=== PATIENT | female | born 1945 | race Caucasian/White ===

== ENCOUNTER 2021-11-12 10:01 | Outpatient (REF) | payer MEDICARE, SELFPAY ==
[2021-11-12 11:29] LABS: MANUAL DIFF FLAG NO
[2021-11-12 11:30] LABS: Appearance Urine Clear; Color Urine Yellow; Glucose Urine UA Negative (Negative); Leukocyte Esterase Urine Negative (Negative); Nitrite Urine Negative (Negative); Specific Gravity - Urine 1.015 (1.005-1.025); Urine Blood Trace (Negative); Urine Ketones Negative (Negative); Urine Protein Negative (Neg-Trace)
[2021-11-12 11:45] LABS: Basophils Absolute Auto 0.1 X10*3/uL (0.0-0.2); Basophils Percent Auto 1.2 % (0-2); Eosinophils Absolute Auto 0.1 X10*3/uL (0.0-0.4); Hematocrit 44.4 % (37.0-47.0); Hemoglobin 14.8 g/dl (12.0-16.0); Imm Gran Abs Auto 0.02 X10*3/uL (0.00-0.03); Imm Gran Pct Auto 0.4 % (0.0-0.4); Lymphocytes Absolute Auto 1.4 X10*3/uL (1.2-4.9); Lymphocytes Percent Auto 27.5 % (20-40); Mean Corpuscular HGB Conc 33.3 g/dl (31.0-35.0); Mean Corpuscular Hemoglobin 30.5 pg (27.0-33.0); Mean Corpuscular Volume 91.4 fL (80.0-98.0); Mean Platelet Volume 10.8 fL (9.4-12.3); Monocytes Absolute Auto 0.6 X10*3/uL (0.1-1.2); Neutrophils Percent Auto 57.9 % (45-73); Platelet Count 264 X10*3/uL (160-400); Red Blood Count 4.86 X10*6/uL (4.20-5.50); Red Cell Distribution Width 12.7 % (11.0-16.0); White Blood Count 5.1 X10*3/uL (4.8-10.8)
[2021-11-12 12:33] LABS: Alanine Aminotransferase 20 U/L (0-31); Albumin Level 4.1 g/dL (3.5-5.0); Alkaline Phosphatase 110 U/L (39-117); Anion Gap 15 (12-20); Aspartate Amino Transferase 19 U/L (5-31); Bilirubin Total 0.9 mg/dL (0.0-1.0); Blood Urea Nitrogen 13 mg/dL (9-16); Calcium 9.4 mg/dL (8.4-10.2); Carbon Dioxide 25 mmol/L (22-29); Chloride 105 mmol/L (96-108); Cholesterol 327 mg/dL; Estimated Glomerular Filt Rate > 60; Glucose Fasting 98 mg/dL (60-99); HDL Cholesterol 59 mg/dL; LDL Cholesterol Calculated 250 mg/dl; Potassium 4.3 mmol/L (3.3-5.1); Sodium 141 mmol/L (135-145); Total Protein 6.7 g/dL (6.5-8.0); Triglycerides 92 mg/dL
[2021-11-12 12:43] LABS: TSH reflex Free T4 1.38 uIU/mL (0.32-4.0)
== END 2021-11-12 10:02 | disposition home or self-care (01) ==
LOC: HO.HMGCLDS 10:01
PROVIDERS: PCP Nurse Practitioner Family; Visit Provider Nurse Practitioner Family
DX: I10 Essential (primary) hypertension (principal)
CPT/HCPCS: 36415; 80053; 80061; 81003; 84443; 85025

== ENCOUNTER 2021-11-19 09:24 | Outpatient (REF) | payer MEDICARE, SELFPAY ==
--- NOTE | ~2021-11-19 | MM_ITS ---
EXAMINATION: BONE DENSITOMETRY CLINICAL INDICATION: Age-related osteoporosis without current pathological fracture. COMPARISON: None (current study represents initial baseline exam). TECHNIQUE: Using a SeeMe DXA System (software version: 13.1) manufactured by [employer], dual-energy x-ray absorptiometry was performed of the lumbar spine and left hip. The images are of good technical quality. Summary results are attached. FINDINGS: AP SPINE L1-L4: BMD 0.973 g/cm2, Z-score -0.1, T-score -1.7, osteopenia. LEFT FEMUR, NECK: BMD 0.861 g/cm2, Z-score 0.6, T-score -1.3, osteopenia. LEFT FEMUR, TOTAL: BMD 0.870 g/cm2, Z-score 0.6, T-score -1.1, osteopenia. IDENTIFIED RISK FACTORS: Osteoporosis, height loss, menopause, hysterectomy. HISTORY OF FRACTURE: None listed. MEDICATIONS: Bisphosphonates. MM/XR DEXA axial skeleton IMPRESSION: 1. DIAGNOSIS: Osteopenia based on the lowest T-score value of -1.7 in the lumbar spine applying World Health Organization criteria. 2. 10-YEAR FRACTURE RISK PREDICTION, FRAX: Major osteoporotic fracture (clinical spine, forearm, hip or shoulder) 10.9%. Hip fracture 2.0%. 3. Treatment Recommendations: NOF guidelines recommend consideration for treatment in postmenopausal women and men age 50 and older presenting with the following: -A hip or vertebral (clinical or morphometric) fracture. -T-score less than or equal to -2.5 at the femoral neck or spine after appropriate evaluation to exclude secondary causes. -Low bone mass at the hip or spine and a 10-year fracture probability by FRAX of greater than or equal to 3% for hip fracture or greater than or equal to 20% for major osteoporotic fracture based on the [place] adapted WHO algorithm. 4. Other Recommendations: All treatment decisions require clinical judgment and consideration of individual patient factors, including patient preferences, comorbidities, previous drug use, risk factors not captured in the FRAX model (e.g. frailty, falls, vitamin D deficiency, increased bone turnover, interval significant decline in bone density) and possible under or overestimation of fracture risk by FRAX. Additional medical evaluation for secondary cause of low bone mineral density may be appropriate. FUTURE SCAN RECOMMENDATION: People with diagnosed cases of osteoporosis or at high risk for fracture should have regular bone mineral density tests. For patients eligible for Medicare, routine testing is allowed once every 2 years. The testing frequency can be increased to one year for patients who have rapidly progressing disease, those who are receiving or discontinuing medical therapy to restore bone mass, or have additional risk factors.
== END 2021-11-19 09:25 | disposition home or self-care (01) ==
LOC: HO.MAMMO 09:24
PROVIDERS: PCP Nurse Practitioner Family; Visit Provider Nurse Practitioner Family
DX: Z13.820 Encounter for screening for osteoporosis (principal); M81.0 Age-related osteoporosis without current pathological fracture; Z78.0 Asymptomatic menopausal state
CPT/HCPCS: 77080

== ENCOUNTER 2021-11-26 12:39 | Outpatient (REF) | payer MEDICARE, SELFPAY ==
[2021-11-26 13:49] LABS: Urine Cytology See Pathology rpt
[2021-11-26 14:17] LABS: Appearance Urine Clear; Color Urine Yellow; Glucose Urine UA Negative (Negative); Leukocyte Esterase Urine Trace (Negative); Nitrite Urine Negative (Negative); Urine Blood Negative (Negative); Urine Ketones Negative (Negative); Urine Protein Negative (Neg-Trace)
[2021-11-26 14:22] LABS: Bacteria Urine None Seen (None Seen); Hyaline Casts Urine 0-2 /LPF (0-2); RBC Urine 0-2 /HPF (0-2); Squamous Epithelial Cell Urine 0-2 /HPF (0-2); WBC Urine 0-5 /HPF (0-5)
== END 2021-11-26 12:40 | disposition home or self-care (01) ==
LOC: HO.HMGCLDS 12:39
PROVIDERS: PCP Nurse Practitioner Family; Visit Provider Nurse Practitioner Family
DX: R31.29 Other microscopic hematuria (principal)
CPT/HCPCS: 81001; 87086; 88112

== ENCOUNTER → 2022-04-14 11:16 | Outpatient (REF) | payer MEDICARE, SELFPAY ==
--- NOTE | 2022-04-14 11:20 | HM_ITS ---
* Total monitoring time 3 days. * Underlying rhythm is sinus. Average ventricular rate 75/Min. Range 46 to 121/Min. * Occasional PVCs; burden of 0.6%. * Rare PACs with minimal burden. * No sustained arrhythmias. * No significant pauses or AV blocks. * No patient diary. MTDD
== END ==
LOC: HO.CARD 11:16
PROVIDERS: PCP Nurse Practitioner Family; Visit Provider Nurse Practitioner Family
DX: R00.2 Palpitations (principal)
CPT/HCPCS: 93242

== ENCOUNTER 2022-07-06 09:30 | Outpatient (REF) | payer MEDICARE, SELFPAY ==
[2022-07-06 12:02] LABS: Alanine Aminotransferase 36 U/L (0-31); Albumin Level 4.1 g/dL (3.5-5.0); Alkaline Phosphatase 104 U/L (39-117); Anion Gap 11 (12-20); Aspartate Amino Transferase 25 U/L (5-31); Bilirubin Total 1.1 mg/dL (0.0-1.0); Blood Urea Nitrogen 16 mg/dL (9-16); Calcium 9.6 mg/dL (8.4-10.2); Carbon Dioxide 27 mmol/L (22-29); Chloride 108 mmol/L (96-108); Cholesterol 187 mg/dL; Estimated Glomerular Filt Rate > 60; Glucose Fasting 95 mg/dL (60-99); HDL Cholesterol 59 mg/dL; LDL Cholesterol Calculated 108 mg/dl; Potassium 4.3 mmol/L (3.3-5.1); Sodium 142 mmol/L (135-145); Total Protein 6.2 g/dL (6.5-8.0); Triglycerides 100 mg/dL
== END 2022-07-06 09:31 | disposition home or self-care (01) ==
LOC: HO.HMGCLDS 09:30
PROVIDERS: PCP Nurse Practitioner Family; Visit Provider Nurse Practitioner Family
DX: E78.5 Hyperlipidemia, unspecified (principal)
CPT/HCPCS: 36415; 80053; 80061

== ENCOUNTER 2022-07-13 13:42 | Outpatient (REF) | payer MEDICARE, SELFPAY ==
[2022-07-13 17:15] LABS: Alanine Aminotransferase 28 U/L (0-31); Albumin Level 4.3 g/dL (3.5-5.0); Alkaline Phosphatase 105 U/L (39-117); Aspartate Amino Transferase 22 U/L (5-31); Bilirubin Direct 0.3 mg/dL (0.0-0.5); Bilirubin Total 1.1 mg/dL (0.0-1.0); Total Protein 6.6 g/dL (6.5-8.0)
[2022-07-13 17:31] LABS: TSH reflex Free T4 0.91 uIU/mL (0.32-4.0)
[2022-07-15 08:38] LABS: HBS Num1 0.12 mIU/mL (0-7.99); HBc Num1 0.08 S/CO (0.00-0.79); HBsAGNum1 0.45 S/CO (0.00-0.99); Hepatitis A Antibody IgM 0.14 Index (0-0.79); Hepatitis B Core Antibody Nonreactive (Nonreactive); Hepatitis B Surface Antigen Negative (Negative); ~HepC Num1 0.12 S/CO (0.00-0.79); ~Hepatitis A Antibody IgM Nonreactive (Nonreactive); ~Hepatitis B Surface Antibody NONREACTIVE (Nonreactive); ~Hepatitis C Antibody Nonreactive (Nonreactive)
== END 2022-07-13 13:43 | disposition home or self-care (01) ==
LOC: HO.HMGCLDS 13:42
PROVIDERS: PCP Nurse Practitioner Family; Visit Provider Nurse Practitioner Family
DX: R74.8 Abnormal levels of other serum enzymes (principal); E03.9 Hypothyroidism, unspecified
CPT/HCPCS: 36415; 80076; 84443; 86704; 86706; 86709; 86803; 87340

== ENCOUNTER 2022-08-25 13:09 | Outpatient (REF) | payer MEDICARE, SELFPAY ==
--- NOTE | ~2022-08-25 | MM_ITS ---
EXAMINATION: MM SCREENING DIGITAL BREAST TOMOSYNTHESIS, BILATERAL CLINICAL INFORMATION: Screening. Asymptomatic. Prior out of state mammography from [place] currently unavailable. Age 76. No known family history breast cancer. The lifetime risk of breast cancer based on the Tyrer-Cuzick Model is 3%. COMPARISON: None. TECHNIQUE: Digital breast tomosynthesis is performed in both the craniocaudal and mediolateral oblique views along with computer-aided detection (CAD). Synthesized 2D images are generated from the tomosynthesis. Additional right MLO view is provided. FINDINGS: The breasts are heterogeneously dense, which may obscure small masses (ACR BI-RADS breast composition Category c). There are no significant masses, abnormal calcifications, or other abnormalities. There is incidental small intramammary node posterior lower inner right breast. Scattered bilateral punctate round, vascular, and a few coarse benign calcifications are present. The axilla and skin contours are unremarkable. Radiology department staff will attempt to retrieve prior [id number] mammography to allow for comparison in an addendum report. MM/MM tomosynthesis screening BI IMPRESSION: No mammographic evidence of malignancy. ASSESSMENT: BI-RADS 2: Benign RECOMMENDATION: -Routine annual mammography screening. -Radiology department staff will attempt to retrieve prior [id number] mammography to allow for comparison in an addendum report. This patient's information was entered into a reminder system with a target due date for their next mammogram.
== END 2022-08-25 13:10 | disposition home or self-care (01) ==
LOC: HO.MAMMO 13:09
PROVIDERS: PCP Nurse Practitioner Family; Visit Provider Nurse Practitioner Family
DX: Z12.31 Encounter for screening mammogram for malignant neoplasm of breast (principal)
CPT/HCPCS: 77063; 77067

== ENCOUNTER 2023-01-09 09:26 | Outpatient (AMB) | payer MEDICARE, SELFPAY ==
--- NOTE | 2023-01-09 09:31 | A.OFFPC_ITS ---
Vital Signs 01/09/23 09:33 Height 5 ft 4 in Weight 171 lb BMI 29.3 BP 120/80 Blood Pressure Location Rt brachial Position Sitting Pulse 88 Pulse Source Pulse Oximeter Pulse Oximetry (%) 98 Oxygen Delivery Method Room Air Intake Visit Reasons: 6m follow up Allergies No Known Allergies Allergy (Verified 01/09/23 09:33) Tobacco use date assessed: 07/13/22 Fall risk assessment: No Falls in past year Last assessed Fall Risk: 01/09/23 Dental Screening Dental Screen Date: 01/09/23 Did you have a dental visit in the last 12 months?: Yes Did you have a dental problem in the last 6 months where you did not have access to dental care?: No Was dental information given to patient?: Patient has dentist HPI 6m follow up HPI Details HTN: Blood pressure is stable, managed with amlodipine-benazepril 5- 40mg and metoprolol 12.5mg. Dyslipidemia: On rosuvastatin 10mg. Will order labs. Denies chest pain, shortness of breath, headache, dizziness, and blurred vision. Hx of hypothyroid, currently taking levothyroxine 75mcg. Will order labs. [facility], [facility] Medical History Osteoarthritis Social History Housing: Apartment Patient Tobacco Use Status: Never used Tobacco e-Cigarette/Vaping Use: Never Used Second Hand Smoke Exposure: No service: No Current occupational status: retired Cognitive needs: No Hearing needs: No Vision needs: No Questionnaire Thrive Questionnaire Date Thrive assessed: 04/05/22 AUDIT C Alcohol Use Questionnaire (AUDIT-C) 1. How often do you have a drink containing alcohol?: Never 3. How often do you have six or more drinks on one occasion?: Never Total Score: 0 Score Reviewed/Action Taken: No STEPHANY-7 AMB Questionnaire STEPHANY-7 Date STEPHANY - 7 assessed: 11/11/21 Source: Developed by Drs. Zechariah Lazo, Ivonne Mayer, Bubba Heredia and colleagues, with an educational jennifer from [employer]. Review of Systems Const Reports as per HPI Physical exam (Primary Care) Vital Signs: Last Vital Signs Pulse 88 01/09/23 09:33 BP 120/80 01/09/23 09:33 Pulse Ox 98 01/09/23 09:33 Oxygen Delivery Method Room Air 01/09/23 09:33 BMI result Body Mass Index 29.3 Tobacco/Smoking Status: Tobacco use Status Tobacco use date assessed 07/13/22 01/09/23 09:36 Patient Tobacco Use Status Never used Tobacco 01/09/23 09:36 e-Cigarette/Vaping Use Never Used 01/09/23 09:36 Thrive Assessment: Date of Thrive Assessment Date Thrive assessed 04/05/22 01/09/23 09:36 Const General: cooperative Orientation/consciousness: patient oriented x3 Resp Effort & Inspection: normal respiratory effort Auscultation: clear to auscultation bilaterally Cardio Rate: regular rate Rhythm: regular rhythm Heart sounds: S1 normal heart sound present and S2 normal heart sound present Neuro General: patient oriented x3 Extrem Right lower extremity: no edema Left lower extremity: no edema Psych Appearance: grossly normal Mental Status: mental status grossly normal Speech and movement: Normal speech and movement present Affect: normal affect Attitude: cooperative Thought process: Normal thought process present Thought content: Normal thought content present Insight: Good insight present (Psych) Judgement: Good judgement present (Psych) Assessment and Plan Assessment & Plan (1) Hypothyroid: Code(s): E03.9 - Hypothyroidism, unspecified Plan: Labs ordered (2) HTN (hypertension): Code(s): I10 - Essential (primary) hypertension Plan: Labs ordered (3) Dyslipidemia: Code(s): E78.5 - Hyperlipidemia, unspecified Plan: Labs ordered Plan The patient agreed to the use of a medical doctor nuclear medicine for this encounter. Scribed for RACHEL Barboza by Kari Hicks medical doctor nuclear medicine, on 01/09/2023 at 09:45 EST Orders: Orders Comprehensive [place]. Panel Fast Today E03.9 - Hypothyroidism, unspecified, E78.5 - Hyperlipidemia, unspecified, I10 - Essential (primary) hypertension Lipid Panel Today E03.9 - Hypothyroidism, unspecified, E78.5 - Hyperlipidemia, unspecified, I10 - Essential (primary) hypertension Complete Blood Count Auto Diff Today E03.9 - Hypothyroidism, unspecified, E78.5 - Hyperlipidemia, unspecified, I10 - Essential (primary) hypertension TSH reflex Free T4 Today E03.9 - Hypothyroidism, unspecified, E78.5 - Hyperlipidemia, unspecified, I10 - Essential (primary) hypertension UA CC w/rflx Micro + Cult Today E03.9 - Hypothyroidism, unspecified, E78.5 - Hyperlipidemia, unspecified, I10 - Essential (primary) hypertension Coding Level of Care Code Est Pt Level 3 (14536) Diagnoses Hypothyroid E03.9 HTN (hypertension) I10 Dyslipidemia E78.5
[2023-01-09 09:33] VITALS: BP 120/80; PULSE 88; O2SAT 98; BMI 29.3
== END 2023-01-09 09:58 | disposition home or self-care (01) ==
PROVIDERS: Visit Provider Nurse Practitioner Family
DX: E03.9 Hypothyroidism, unspecified (principal); I10 Essential (primary) hypertension; E78.5 Hyperlipidemia, unspecified
CPT/HCPCS: 99213

== ENCOUNTER 2023-01-09 09:59 | Outpatient (REF) | payer MEDICARE, SELFPAY ==
[2023-01-09 13:41] LABS: MANUAL DIFF FLAG NO
[2023-01-09 14:13] LABS: Appearance Urine Turbid; Color Urine Yellow; Glucose Urine UA Negative (Negative); Leukocyte Esterase Urine Trace (Negative); Nitrite Urine Negative (Negative); PH 5.5 (5.0-9.0); UMIC TRIGGER UACC YES; Urine Blood Negative (Negative); Urine Ketones Negative (Negative); Urine Protein Negative (Neg-Trace)
[2023-01-09 14:19] LABS: Alanine Aminotransferase 34 U/L (0-31); Albumin Level 4.2 g/dL (3.5-5.0); Alkaline Phosphatase 89 U/L (39-117); Anion Gap 11 (12-20); Aspartate Amino Transferase 27 U/L (5-31); Bilirubin Total 0.8 mg/dL (0.0-1.0); Blood Urea Nitrogen 15 mg/dL (9-16); Carbon Dioxide 26 mmol/L (22-29); Chloride 109 mmol/L (96-108); Cholesterol 181 mg/dL (<200); Estimated Glomerular Filt Rate > 60; Glucose Fasting 98 mg/dL (60-99); HDL Cholesterol 59 mg/dL (>40); LDL Cholesterol Calculated 94 mg/dL (<100); Potassium 4.3 mmol/L (3.3-5.1); Sodium 142 mmol/L (135-145); Total Protein 6.8 g/dL (6.5-8.0); Triglycerides 141 mg/dL (<150)
[2023-01-09 14:21] LABS: Basophils Absolute Auto 0.1 X10*3/uL (0.0-0.2); Basophils Percent Auto 0.9 % (0-2); Eosinophils Absolute Auto 0.1 X10*3/uL (0.0-0.4); Eosinophils Percent Auto 1.7 % (0-4); Hematocrit 44.3 % (37.0-47.0); Hemoglobin 14.5 g/dl (12.0-16.0); Imm Gran Abs Auto 0.02 X10*3/uL (0.00-0.03); Imm Gran Pct Auto 0.3 % (0.0-0.4); Lymphocytes Absolute Auto 1.7 X10*3/uL (1.2-4.9); Lymphocytes Percent Auto 23.8 % (20-40); Mean Corpuscular HGB Conc 32.7 g/dl (31.0-35.0); Mean Corpuscular Hemoglobin 30.3 pg (27.0-33.0); Mean Corpuscular Volume 92.7 fL (80.0-98.0); Mean Platelet Volume 11.1 fL (9.4-12.3); Monocytes Absolute Auto 0.7 X10*3/uL (0.1-1.2); Monocytes Percent Auto 10.2 % (2-11); Neutrophils Absolute Auto 4.4 x10*3/uL (2.0-8.3); Neutrophils Percent Auto 63.1 % (45-73); Platelet Count 239 X10*3/uL (160-400); Red Blood Count 4.78 X10*6/uL (4.20-5.50); Red Cell Distribution Width 12.7 % (11.0-16.0); White Blood Count 6.9 X10*3/uL (4.8-10.8)
[2023-01-09 14:22] LABS: TSH reflex Free T4 1.02 uIU/mL (0.32-4.0)
[2023-01-09 14:59] LABS: Bacteria Urine None Seen (None Seen); Hyaline Casts Urine 0-2 /LPF (0-2); RBC Urine 0-2 /HPF (0-2); Squamous Epithelial Cell Urine 0-2 /HPF (0-2); WBC Urine 0-5 /HPF (0-5)
== END 2023-01-09 10:00 | disposition home or self-care (01) ==
LOC: HO.HMGCLDS 09:59
PROVIDERS: PCP Nurse Practitioner Family; Visit Provider Nurse Practitioner Family
DX: E03.9 Hypothyroidism, unspecified (principal); E78.5 Hyperlipidemia, unspecified; I10 Essential (primary) hypertension
CPT/HCPCS: 36415; 80053; 80061; 81001; 81003; 84443; 85025

== ENCOUNTER 2023-07-11 09:18 | Outpatient (AMB) | payer MEDICARE, SELFPAY ==
--- NOTE | 2023-07-11 09:26 | MHC.PC.OV ---
Vital Signs 07/11/23 09:28 Height 5 ft 4 in Weight 169 lb BMI 29.0 BP 138/80 Blood Pressure Location Rt brachial Position Sitting Pulse 64 Pulse Source Pulse Oximeter Pulse Oximetry (%) 98 Oxygen Delivery Method Room Air Intake Visit Reasons: physical Intake Note: pt is here for physical exam, reports no concerns Assemblyman Or Woman Required: No Accompanied by: Self / Same As Patient Allergies No Known Allergies Allergy (Verified 07/11/23 09:40) Medication List - Last Reconciled 07/11/23 by RACHEL Her amlodipine-benazepril 5-40 mg 1 cap PO DAILY 90 days ascorbate calcium (vitamin C) 500 mg PO QDAY cholecalciferol (vitamin D3) 25 mcg PO DAILY famotidine 40 mg PO DAILY levothyroxine 75 mcg PO DAILY 90 days metoprolol succinate ER 12.5 mg (1/2 x 25 mg) PO DAILY rosuvastatin 10 mg PO DAILY ngymxjgt-mekh-dsrej-oreg-capry 100 mg-150 mg- 50 mg-150 mg caps PO Tobacco use date assessed: 07/11/23 Fall risk assessment: No Falls in past year Last assessed Fall Risk: 07/11/23 Dental Screening Dental Screen Date: 07/11/23 Did you have a dental visit in the last 12 months?: Yes Did you have a dental problem in the last 6 months where you did not have access to dental care?: No Was dental information given to patient?: Patient has dentist HPI physical HPI Details Pt is here for a PE. Will order labs. Cologuard is up to date. Due for bone density in November, will place order. [facility] Medical History Osteoarthritis Surgical History S/P tonsillectomy History of partial hysterectomy S/P knee surgery Social History Housing: Apartment Patient Tobacco Use Status: Never used Tobacco e-Cigarette/Vaping Use: Never Used Second Hand Smoke Exposure: No service: No Current occupational status: retired Cognitive needs: No Hearing needs: No Vision needs: No Questionnaire PHQ-9 Over the last 2 weeks, how often have you been bothered by any of the following problems? 1. Little interest or pleasure in doing things: not at all 2. Feeling down, depressed, or hopeless: not at all 3. Trouble falling or staying asleep, or sleeping too much: not at all 4. Feeling tired or having little energy: not at all 5. Poor appetite or overeating: not at all 6. Feeling bad about yourself - or that you are a failure or have let yourself or your family down: not at all 7. Trouble concentrating on things, such as reading the newspaper or watching television: not at all 8. Moving or speaking so slowly that other people could have noticed. Or the opposite - being so fidgety or restless that you have been moving around a lot more than usual: not at all 9. Thoughts that you would be better off or of hurting yourself in some way: not at all Total score: 0 Depression Screening Interpretation: Negative Depression Screening Done: Yes 97144 - PHQ-9 Billing: Yes Source: Developed by Drs. Zechariah Lazo, Ivonne Mayer, Bubba Heredia and colleagues, with an educational jennifer from [employer]. Thrive Questionnaire Date Thrive assessed: 07/11/23 I am a: Patient What is your living situation today?: I have a steady place to live Within the past 12 months, did the food you bought not last and you didn't have the money to get more?: Never true Within the past 12 months, did you worry whether your food would run out before you got money to buy more?: Never true Do you have trouble paying for medicines?: No Do you have trouble getting transportation to medical appointments?: No Do you have trouble paying your heating and electricity bill?: No Do you have trouble taking care of your child, family member or friend?: No Do you have trouble with day-to-day activities such as bathing, preparing meals, shopping, managing finances, etc.?: No Are you currently unemployed and looking for a job?: No Are you interested in more education?: No Please select the resources that you would like help with: None Currently or been in a relationship where the following occur: no concerns reported THRIVE Score: 0 AUDIT C Alcohol Use Questionnaire (AUDIT-C) 1. How often do you have a drink containing alcohol?: Never 3. How often do you have six or more drinks on one occasion?: Never Total Score: 0 Score Reviewed/Action Taken: Yes STEPHANY-7 AMB Questionnaire STEPHANY-7 Date STEPHANY - 7 assessed: 07/11/23 Feeling nervous, anxious, or on edge: 0 = Not at all Not being able to stop or control worryin = Not at all Worrying too much about different things: 0 = Not at all Trouble relaxin = Not at all Being so restless that it is hard to sit still: 0 = Not at all Becoming easily annoyed or irritable: 0 = Not at all Feeling afraid as if something awful might happen: 0 = Not at all Total STEPHANY-7 score (0-4 normal; 5-9 mild; 10-14 moderate; 15-21 severe): 0 Source: Developed by Drs. Zechariah Lazo, Ivonne Mayer, Bubba Heredia and colleagues, with an educational jennifer from [employer]. STEPHANY-7 Assessment Billing STEPHANY-7 Assessment Tool: STEPHANY-7 Assessment 47251 Review of Systems Const Denies chills and Denies fever(s) Eyes Denies blurry vision ENT Denies vertigo, Denies dizziness and Denies sore throat Card Denies chest pain at rest, Denies chest pain with activity, Denies diaphoresis, Denies dyspnea and Denies dyspnea on exertion Resp Denies cough, Denies dyspnea, Denies dyspnea on exertion and Denies wheezing GI Denies abdominal pain, Denies melena, Denies hematochezia, Denies constipation, Denies diarrhea and Denies loose stools Denies hematuria Musc Denies numbness and Denies tingling Skin/Breast Denies lesions Neuro Denies vertigo, Denies dizziness, Denies numbness and Denies tingling Psych Denies anxiety, Denies depression, Denies homicidal ideation, Denies suicidal ideation and Denies other (substance abuse) Aller/Immun Denies wheezing Physical exam (Primary Care) Vital Signs: Last Vital Signs Pulse 64 07/11/23 09:28 BP 138/80 07/11/23 09:28 Pulse Ox 98 07/11/23 09:28 Oxygen Delivery Method Room Air 07/11/23 09:28 BMI result Body Mass Index 29.0 Tobacco/Smoking Status: Tobacco use Status Tobacco use date assessed 07/11/23 07/11/23 09:34 Patient Tobacco Use Status Never used Tobacco 07/11/23 09:26 e-Cigarette/Vaping Use Never Used 07/11/23 09:26 PHQ-9: PHQ-9 Score PHQ-9: Total score 0 07/11/23 09:38 Depression Screening Interpretation: Negative Thrive Assessment: Date of Thrive Assessment Date Thrive assessed 07/11/23 07/11/23 09:34 Currently or been in a relationship where the following occur: no concerns reported Const General: cooperative Nutritional Appearance: well nourished Orientation/consciousness: patient oriented x3 HENMT Head: Yes normal to inspection, Yes normocephalic and Yes atraumatic Ears: TM's normal bilaterally Eyes General: appearance normal, both eyes and all related structures Alignment and Position: alignment normal and position normal Neck Neck: Yes normal visual inspection and Yes no lymphadenopathy Thyroid: Thyroid normal Resp Effort & Inspection: normal respiratory effort Auscultation: clear to auscultation bilaterally Cardio Rate: regular rate Rhythm: regular rhythm Heart sounds: S1 normal heart sound present, S2 normal heart sound present and Murmur heart sound present systolic (faint) GI Palpation (GI): Soft to palpation and nontender Auscultation: normal bowel sounds Skin Rashes: no rashes Neuro General: patient oriented x3, moves all extremities, no focal motor deficits and deep tendon reflexes 2+ bilaterally Romberg Test: Negative Psych Appearance: grossly normal Mental Status: mental status grossly normal Speech and movement: Normal speech and movement present Affect: normal affect Attitude: cooperative Thought process: Normal thought process present Thought content: Normal thought content present Insight: Good insight present (Psych) Judgement: Good judgement present (Psych) Assessment and Plan Assessment & Plan (1) Physical exam: Code(s): Z00.00 - Encounter for general adult medical examination without abnormal findings Plan: Labs ordered (2) Osteoporosis: Code(s): M81.0 - Age-related osteoporosis without current pathological fracture Plan: Bone density ordered Plan The patient agreed to the use of a medical doctor for this encounter. Scribed for RACHEL Barboza by renita Arias scribe, on 07/11/2023 at 09:40 EST. Orders: Orders Complete Blood Count Auto Diff Today Z00.00 - Encounter for general adult medical examination without abnormal findings Lipid Panel Today Z00.00 - Encounter for general adult medical examination without abnormal findings Vitamin D 25-OH Total Today Z00.00 - Encounter for general adult medical examination without abnormal findings Comprehensive [place]. Panel Fast Today Z00.00 - Encounter for general adult medical examination without abnormal findings TSH reflex Free T4 Today Z00.00 - Encounter for general adult medical examination without abnormal findings UA CC w/rflx Micro + Cult Today Z00.00 - Encounter for general adult medical examination without abnormal findings XR DEXA axial skeleton 5 Months M81.0 - Age-related osteoporosis without current pathological fracture Coding Level of Care Code Est Pt Prev Care >65y(25867) Diagnoses Physical exam Z00.00 Osteoporosis M81.0 Additional Codes STEPHANY-7 Assessment Billing - STEPHANY-7 Assessment Tool: STEPHANY-7 Assessment [id number] ([id number])
[2023-07-11 09:28] VITALS: BP 138/80; PULSE 64; O2SAT 98; BMI 29.0
== END 2023-07-11 09:52 | disposition home or self-care (01) ==
PROVIDERS: PCP Nurse Practitioner Family; Visit Provider Nurse Practitioner Family
DX: Z00.00 Encounter for general adult medical examination without abnormal findings (principal); M81.0 Age-related osteoporosis without current pathological fracture
CPT/HCPCS: 99397

== ENCOUNTER 2023-07-11 09:53 | Outpatient (REF) | payer MEDICARE, SELFPAY ==
[2023-07-11 13:08] LABS: MANUAL DIFF FLAG NO
[2023-07-11 13:29] LABS: Appearance Urine Turbid; Color Urine Yellow; Glucose Urine UA Negative (Negative); Leukocyte Esterase Urine Negative (Negative); Nitrite Urine Negative (Negative); PH 5.5 (5.0-9.0); Urine Blood Negative (Negative); Urine Ketones Negative (Negative); Urine Protein Negative (Neg-Trace)
[2023-07-11 13:33] LABS: Basophils Absolute Auto 0.1 X10*3/uL (0.0-0.2); Basophils Percent Auto 1.1 % (0-2); Eosinophils Absolute Auto 0.1 X10*3/uL (0.0-0.4); Eosinophils Percent Auto 2.1 % (0-4); Hematocrit 44.4 % (37.0-47.0); Hemoglobin 14.9 g/dl (12.0-16.0); Imm Gran Abs Auto 0.01 X10*3/uL (0.00-0.03); Imm Gran Pct Auto 0.2 % (0.0-0.4); Lymphocytes Absolute Auto 1.6 X10*3/uL (1.2-4.9); Lymphocytes Percent Auto 30.1 % (20-40); Mean Corpuscular HGB Conc 33.6 g/dl (31.0-35.0); Mean Corpuscular Hemoglobin 30.9 pg (27.0-33.0); Mean Corpuscular Volume 92.1 fL (80.0-98.0); Mean Platelet Volume 11.3 fL (9.4-12.3); Monocytes Absolute Auto 0.6 X10*3/uL (0.1-1.2); Neutrophils Percent Auto 55.5 % (45-73); Platelet Count 261 X10*3/uL (160-400); Red Blood Count 4.82 X10*6/uL (4.20-5.50); Red Cell Distribution Width 12.7 % (11.0-16.0); White Blood Count 5.3 X10*3/uL (4.8-10.8)
[2023-07-11 13:58] LABS: Alanine Aminotransferase 32 U/L (0-31); Albumin Level 4.2 g/dL (3.5-5.0); Alkaline Phosphatase 100 U/L (39-117); Anion Gap 12 (12-20); Aspartate Amino Transferase 24 U/L (5-31); Bilirubin Total 0.7 mg/dL (0.0-1.0); Blood Urea Nitrogen 16 mg/dL (9-16); Calcium 9.8 mg/dL (8.4-10.2); Carbon Dioxide 27 mmol/L (22-29); Chloride 107 mmol/L (96-108); Cholesterol 205 mg/dL (<200); Estimated Glomerular Filt Rate > 60; Glucose Fasting 89 mg/dL (60-99); HDL Cholesterol 63 mg/dL (>40); LDL Cholesterol Calculated 122 mg/dL (<100); Potassium 4.6 mmol/L (3.3-5.1); Sodium 141 mmol/L (135-145); Total Protein 7.1 g/dL (6.5-8.0); Triglycerides 100 mg/dL (<150)
[2023-07-11 14:16] LABS: TSH reflex Free T4 1.13 uIU/mL (0.32-4.0); Vitamin D 25-OH Total 80.4 ng/mL (>30)
== END 2023-07-11 09:54 | disposition home or self-care (01) ==
LOC: HO.HMGCLDS 09:53
PROVIDERS: PCP Nurse Practitioner Family; Visit Provider Nurse Practitioner Family
DX: Z00.00 Encounter for general adult medical examination without abnormal findings (principal); E03.9 Hypothyroidism, unspecified; I10 Essential (primary) hypertension; E78.5 Hyperlipidemia, unspecified
CPT/HCPCS: 36415; 80053; 80061; 81003; 82306; 84443; 85025

== ENCOUNTER 2023-11-28 10:36 | Outpatient (REF) | payer MEDICARE, SELFPAY ==
--- NOTE | ~2023-11-28 | MM_ITS ---
EXAMINATION: BONE DENSITOMETRY CLINICAL INDICATION: Age-related osteoporosis without current pathological fracture. COMPARISON: Baseline BD dated 11/19/2021. TECHNIQUE: Using a Where DXA System (software version: 13.1) manufactured by [employer], dual-energy x-ray absorptiometry was performed of the lumbar spine and left hip. The images are of good technical quality. Summary results are attached. FINDINGS: LEFT FEMUR, NECK: Current: BMD 0.905 g/cm2, Z-score 0.9, T-score -1.0, normal. Baseline: BMD 0.861 g/cm2. LEFT FEMUR, TOTAL: Current: BMD 0.883 g/cm2, Z-score 0.6, T-score -1.0, normal, 1.5% increase from baseline (<5% change is not significant). Baseline: BMD 0.870 g/cm2. AP SPINE L1-L4: Current: BMD 0.957 g/cm2, Z-score -0.4, T-score -1.9, osteopenia, 1.6% decrease from baseline (<5% change is not significant). Baseline: BMD 0.973 g/cm2. IDENTIFIED RISK FACTORS: Height loss, hysterectomy, menopause. HISTORY OF FRACTURE: None listed. MEDICATIONS: Vitamin D. MM/XR DEXA axial skeleton IMPRESSION: 1. DIAGNOSIS: Osteopenia based on the lowest T-score value of -1.9 in the lumbar spine applying World Health Organization criteria. 2. 10-YEAR FRACTURE RISK PREDICTION, FRAX: Major osteoporotic fracture (clinical spine, forearm, hip or shoulder) 10.5%. Hip fracture 1.8%. 3. Treatment Recommendations: NOF guidelines recommend consideration for treatment in postmenopausal women and men age 50 and older presenting with the following: -A hip or vertebral (clinical or morphometric) fracture. -T-score less than or equal to -2.5 at the femoral neck or spine after appropriate evaluation to exclude secondary causes. -Low bone mass at the hip or spine and a 10-year fracture probability by FRAX of greater than or equal to 3% for hip fracture or greater than or equal to 20% for major osteoporotic fracture based on the [place] adapted WHO algorithm. 4. Other Recommendations: All treatment decisions require clinical judgment and consideration of individual patient factors, including patient preferences, comorbidities, previous drug use, risk factors not captured in the FRAX model (e.g. frailty, falls, vitamin D deficiency, increased bone turnover, interval significant decline in bone density) and possible under or overestimation of fracture risk by FRAX. Additional medical evaluation for secondary cause of low bone mineral density may be appropriate. FUTURE SCAN RECOMMENDATION: People with diagnosed cases of osteoporosis or at high risk for fracture should have regular bone mineral density tests. For patients eligible for Medicare, routine testing is allowed once every 2 years. The testing frequency can be increased to one year for patients who have rapidly progressing disease, those who are receiving or discontinuing medical therapy to restore bone mass, or have additional risk factors. Electronically signed by: John Roldan MD 12/01/2023 12:44 PM EDT RP
--- NOTE | ~2023-11-28 | MM_ITS ---
EXAMINATION: MM SCREENING DIGITAL BREAST TOMOSYNTHESIS, BILATERAL CLINICAL INFORMATION: Screening. Asymptomatic. COMPARISON: Mammography: Comparison is made with available priors TECHNIQUE: Digital breast mammography with tomosynthesis is performed in both the craniocaudal and mediolateral oblique views along with computer-aided detection (CAD). FINDINGS: The breasts are heterogeneously dense, which may obscure small masses (ACR BI-RADS breast composition Category c). There are no significant masses, abnormal calcifications, or other abnormalities. MM/MM tomosynthesis screening BI IMPRESSION: No mammographic evidence of malignancy. ASSESSMENT: BI-RADS BI-RADS 1 - Negative RECOMMENDATION: Routine annual mammography screening. 1 year F/U This examination should not preclude the clinical evaluation of a suspicious palpable abnormality. This patient's information was entered into a reminder system with a target due date for their next mammogram. Electronically signed by: Susan Pang DO 12/12/2023 09:34 AM EDT
== END 2023-11-28 10:37 | disposition home or self-care (01) ==
LOC: HO.MAMMO 10:36
PROVIDERS: PCP Nurse Practitioner Family; Visit Provider Nurse Practitioner Family
DX: Z12.31 Encounter for screening mammogram for malignant neoplasm of breast (principal); M81.0 Age-related osteoporosis without current pathological fracture
CPT/HCPCS: 77063; 77067; 77080

== ENCOUNTER → 2023-11-28 10:45 | Outpatient (BNV) | payer MEDICARE, SELFPAY | PROVIDERS: PCP Nurse Practitioner Family; Visit Provider Internal Medicine | DX: Z12.31 Encounter for screening mammogram for malignant neoplasm of breast (principal) | CPT/HCPCS: 77063; 77067 ==

== ENCOUNTER 2024-01-09 09:34 | Outpatient (AMB) | payer MEDICARE, SELFPAY ==
--- NOTE | 2024-01-09 09:36 | MHC.PC.OV ---
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 Accompanied by: Self / Same As Patient Allergies No Known Allergies Allergy (Verified 01/09/24 12:14) Medication List - Last Reconciled 01/09/24 by RACHEL Her alendronate 70 mg PO QWEEK 90 days amlodipine-benazepril 5-40 mg 1 cap PO DAILY 90 days ascorbate calcium (vitamin C) 500 mg PO QDAY cholecalciferol (vitamin D3) 25 mcg PO DAILY famotidine 40 mg PO DAILY levothyroxine 75 mcg PO DAILY 90 days metoprolol succinate ER 12.5 mg (1/2 x 25 mg) PO DAILY rosuvastatin 10 mg PO DAILY jpndmsyt-ajpu-jrjvw-oreg-capry 100 mg-150 mg- 50 mg-150 mg caps PO Tobacco use date assessed: 07/11/23 Fall risk assessment: No Falls in past year Last assessed Fall Risk: 01/09/24 Dental Screening Dental Screen Date: 07/11/23 HPI 6 month follow up HPI Details HTN: Blood pressure is stable, managed with amlodipine-benazepril 5-40mg and metoprolol 12.5mg. Denies chest pain, shortness of breath, headache, dizziness, and blurred vision. [facility] Medical History Osteoarthritis Surgical History S/P tonsillectomy History of partial hysterectomy S/P knee surgery Social History Housing: Apartment Patient Tobacco Use Status: Never used Tobacco e-Cigarette/Vaping Use: Never Used Second Hand Smoke Exposure: No service: No Current occupational status: retired Cognitive needs: No Hearing needs: No Vision needs: No Questionnaire PHQ-9 Over the last 2 weeks, how often have you been bothered by any of the following problems? 1. Little interest or pleasure in doing things: not at all 2. Feeling down, depressed, or hopeless: not at all 3. Trouble falling or staying asleep, or sleeping too much: not at all 4. Feeling tired or having little energy: not at all 5. Poor appetite or overeating: not at all 6. Feeling bad about yourself - or that you are a failure or have let yourself or your family down: not at all 7. Trouble concentrating on things, such as reading the newspaper or watching television: not at all 8. Moving or speaking so slowly that other people could have noticed. Or the opposite - being so fidgety or restless that you have been moving around a lot more than usual: not at all 9. Thoughts that you would be better off or of hurting yourself in some way: not at all Total score: 0 Source: Developed by Drs. Zechariah Lazo, Ivonne Mayer, Bubba Heredia and colleagues, with an educational jennifer from [employer]. Thrive Questionnaire Date Thrive assessed: 01/03/24 I am a: Patient What is your living situation today?: I have a steady place to live Within the past 12 months, did the food you bought not last and you didn't have the money to get more?: Never true Within the past 12 months, did you worry whether your food would run out before you got money to buy more?: Never true Do you have trouble paying for medicines?: No Do you have trouble getting transportation to medical appointments?: No Do you have trouble paying your heating and electricity bill?: No Do you have trouble taking care of your child, family member or friend?: No Do you have trouble with day-to-day activities such as bathing, preparing meals, shopping, managing finances, etc.?: No Are you currently unemployed and looking for a job?: No Are you interested in more education?: No Please select the resources that you would like help with: None Currently or been in a relationship where the following occur: No concerns reported THRIVE Score: 0 AUDIT C Alcohol Use Questionnaire (AUDIT-C) 1. How often do you have a drink containing alcohol?: Never Total Score: 0 STEPHANY-7 AMB Questionnaire STEPHANY-7 Date STEPHANY - 7 assessed: 07/11/23 Feeling nervous, anxious, or on edge: 0 = Not at all Not being able to stop or control worryin = Not at all Worrying too much about different things: 0 = Not at all Trouble relaxin = Not at all Being so restless that it is hard to sit still: 0 = Not at all Becoming easily annoyed or irritable: 0 = Not at all Feeling afraid as if something awful might happen: 0 = Not at all Total STEPHANY-7 score (0-4 normal; 5-9 mild; 10-14 moderate; 15-21 severe): 0 Source: Developed by Drs. Zechariah Lazo, Ivonne Mayer, Bubba Heredia and colleagues, with an educational jennifer from [employer]. STEPHANY-7 Assessment Billing STEPHANY-7 Assessment Tool: STEPHANY-7 Assessment 02257 Review of Systems Const Reports as per HPI Physical exam (Primary Care) Vital Signs: Last Vital Signs Pulse 68 01/09/24 09:38 BP 138/80 01/09/24 09:38 Pulse Ox 98 01/09/24 09:38 BMI result Body Mass Index 30.0 Tobacco/Smoking Status: Tobacco use Status Tobacco use date assessed 07/11/23 01/09/24 09:36 Patient Tobacco Use Status Never used Tobacco 01/09/24 09:36 e-Cigarette/Vaping Use Never Used 01/09/24 09:36 PHQ-9: PHQ-9 Score PHQ-9: Total score 0 01/09/24 12:16 Thrive Assessment: Date of Thrive Assessment Date Thrive assessed 01/03/24 01/09/24 09:36 Currently or been in a relationship where the following occur: No concerns reported Const General: cooperative Orientation/consciousness: patient oriented x3 Resp Effort & Inspection: normal respiratory effort Auscultation: clear to auscultation bilaterally Cardio Rate: regular rate Rhythm: regular rhythm Heart sounds: S1 normal heart sound present, S2 normal heart sound present and Murmur heart sound present systolic (aortic region) Neuro General: patient oriented x3 Extrem Left lower extremity: edema (trace) Psych Appearance: grossly normal Mental Status: mental status grossly normal Speech and movement: Normal speech and movement present Affect: normal affect Attitude: cooperative Thought process: Normal thought process present Thought content: Normal thought content present Insight: Good insight present (Psych) Judgement: Good judgement present (Psych) Coding Level of Care Code Est Pt Level 3 (05010) Diagnoses HTN (hypertension) I10 Vitamin D deficiency E55.9 Systolic murmur R01.1 Additional Codes STEPHANY-7 Assessment Billing - STEPHANY-7 Assessment Tool: STEPHANY-7 Assessment 16447 ([id number]) Assessment & Plan Assessment & Plan (1) HTN (hypertension): Code(s): I10 - Essential (primary) hypertension Category: Medical Plan: Stable, labs ordered (2) Vitamin D deficiency: Code(s): E55.9 - Vitamin D deficiency, unspecified Category: Medical Plan: will check levels (3) Systolic murmur: Code(s): R01.1 - Cardiac murmur, unspecified Category: Medical Plan: echo ordered Plan The patient agreed to the use of a medical field representative for this encounter. Scribed for RACHEL Barboza by Kari Hicks medical field representative, on 01/09/2024 at 10:00 EST. Orders: Orders Comprehensive [place]. Panel Fast Today I10 - Essential (primary) hypertension TSH reflex Free T4 Today I10 - Essential (primary) hypertension UA CC w/rflx Micro + Cult Today I10 - Essential (primary) hypertension Lipid Panel Today I10 - Essential (primary) hypertension Vitamin D 25-OH Total Today E55.9 - Vitamin D deficiency, unspecified Complete Blood Count Auto Diff Today I10 - Essential (primary) hypertension CA echo transthoracic complete Today R01.1 - Cardiac murmur, unspecified
[2024-01-09 09:38] VITALS: BP 138/80; PULSE 68; O2SAT 98
== END 2024-01-09 11:05 | disposition home or self-care (01) ==
PROVIDERS: PCP Nurse Practitioner Family; Visit Provider Nurse Practitioner Family
DX: I10 Essential (primary) hypertension (principal); E55.9 Vitamin D deficiency, unspecified; R01.1 Cardiac murmur, unspecified

== ENCOUNTER → 2024-01-09 09:34 | Outpatient (BNVA) | payer MEDICARE, SELFPAY | PROVIDERS: PCP Nurse Practitioner Family; Visit Provider Nurse Practitioner Family ==

== ENCOUNTER 2024-01-09 10:12 | Outpatient (REF) | payer MEDICARE, SELFPAY ==
[2024-01-09 13:11] LABS: MANUAL DIFF FLAG NO
[2024-01-09 13:32] LABS: Basophils Percent Auto 0.7 % (0-2); Eosinophils Absolute Auto 0.1 X10*3/uL (0.0-0.4); Eosinophils Percent Auto 1.8 % (0-4); Hematocrit 44.2 % (37.0-47.0); Hemoglobin 14.5 g/dl (12.0-16.0); Imm Gran Abs Auto 0.02 X10*3/uL (0.00-0.03); Imm Gran Pct Auto 0.3 % (0.0-0.4); Lymphocytes Absolute Auto 1.5 X10*3/uL (1.2-4.9); Lymphocytes Percent Auto 24.2 % (20-40); Mean Corpuscular HGB Conc 32.8 g/dl (31.0-35.0); Mean Corpuscular Hemoglobin 29.9 pg (27.0-33.0); Mean Corpuscular Volume 91.1 fL (80.0-98.0); Mean Platelet Volume 11.2 fL (9.4-12.3); Monocytes Absolute Auto 0.7 X10*3/uL (0.1-1.2); Monocytes Percent Auto 10.8 % (2-11); Neutrophils Absolute Auto 3.8 x10*3/uL (2.0-8.3); Neutrophils Percent Auto 62.2 % (45-73); Platelet Count 231 X10*3/uL (160-400); Red Blood Count 4.85 X10*6/uL (4.20-5.50); Red Cell Distribution Width 13.1 % (11.0-16.0); White Blood Count 6.1 X10*3/uL (4.8-10.8)
[2024-01-09 13:38] LABS: Appearance Urine Clear; Color Urine Yellow; Glucose Urine UA Negative (Negative); Leukocyte Esterase Urine Negative (Negative); Nitrite Urine Negative (Negative); Specific Gravity - Urine 1.015 (1.005-1.025); Urine Blood Negative (Negative); Urine Ketones Negative (Negative); Urine Protein Negative (Neg-Trace)
[2024-01-09 13:42] LABS: Alanine Aminotransferase 38 U/L (0-31); Albumin Level 4.1 g/dL (3.5-5.0); Alkaline Phosphatase 91 U/L (39-117); Anion Gap 11 (12-20); Aspartate Amino Transferase 34 U/L (5-31); Bilirubin Total 0.9 mg/dL (0.0-1.0); Blood Urea Nitrogen 15 mg/dL (9-16); Calcium 9.7 mg/dL (8.4-10.2); Carbon Dioxide 27 mmol/L (22-29); Chloride 110 mmol/L (96-108); Cholesterol 169 mg/dL (<200); Estimated Glomerular Filt Rate > 60; Glucose Fasting 95 mg/dL (60-99); HDL Cholesterol 61 mg/dL (>40); LDL Cholesterol Calculated 85 mg/dL (<100); Potassium 4.7 mmol/L (3.3-5.1); Sodium 143 mmol/L (135-145); Total Protein 6.6 g/dL (6.5-8.0); Triglycerides 119 mg/dL (<150)
[2024-01-09 14:08] LABS: TSH reflex Free T4 1.02 uIU/mL (0.32-4.0); Vitamin D 25-OH Total 87.6 ng/mL (>30)
== END 2024-01-09 10:13 | disposition home or self-care (01) ==
LOC: HO.HMGCLDS 10:12
PROVIDERS: PCP Nurse Practitioner Family; Visit Provider Nurse Practitioner Family
DX: I10 Essential (primary) hypertension (principal); E55.0 Rickets, active; R01.1 Cardiac murmur, unspecified
CPT/HCPCS: 36415; 80053; 80061; 81003; 82306; 84443; 85025; 96127; 99212

== ENCOUNTER 2024-02-06 09:20 | Outpatient (REF) | payer MEDICARE, SELFPAY | END 2024-02-06 09:21 | disposition home or self-care (01) | LOC: HO.US 09:20 | PROVIDERS: PCP Nurse Practitioner Family; Visit Provider Nurse Practitioner Family | DX: R74.8 Abnormal levels of other serum enzymes (principal) | CPT/HCPCS: 76700; 76981 ==

== ENCOUNTER → 2024-02-06 09:22 | Outpatient (BNV) | payer MEDICARE, SELFPAY | PROVIDERS: PCP Nurse Practitioner Family; Visit Provider Radiology Diagnostic Radiology | DX: N20.0 Calculus of kidney (principal) | CPT/HCPCS: 76700 ==

== ENCOUNTER → 2024-02-12 13:39 | Outpatient (REF) | payer MEDICARE, SELFPAY ==
--- NOTE | 2024-02-12 13:42 | CA_ITS ---
Transthoracic Echocardiogram Patient (Last, First, Middle): Ayse Juarez G Gender: Female Date of : 1945 Age: 78 Procedure Date: 02/12/2024 Procedure Type: Transthoracic Echocardiogram Location: OP Height: 160.02 cm Weight: 78.02 kg BSA: 1.81 m2 Heart Rate: 67 bpm BP: 165 / 80 mmHg Ready To Wear Department Manager: MARIA ELENA Referring MD: Tai Lindquist [facility] Symptoms: R01.1 - Cardiac murmur, unspecified Study Quality: Adequate ECG Rhythm: Sinus Conclusions: - The left ventricular systolic function is normal. The calculated ejection fraction is 66% by biplane method. - There is mild calcification of the aortic valve. - No obvious valvular pathology seen on this study. Findings Left Ventricle Normal left ventricular cavity size. There is mildly increased left ventricular wall thickness. The left ventricular systolic function is normal. The calculated ejection fraction is 66% by biplane method. There is no evidence of regional wall motion abnormalities. Evidence suggests grade I (mild) diastolic dysfunction. Right Ventricle Normal right ventricular cavity size and systolic function. Atria Both atria are normal in size. Aortic Valve There is a normal trileaflet aortic valve. There is mild calcification of the aortic valve. There is no aortic valve stenosis. There is no aortic valve regurgitation. Mitral Valve There is mild mitral annular calcification. There is no mitral valve regurgitation. There is no mitral valve stenosis. Pulmonic Valve The pulmonic valve is likely normal. Tricuspid Valve There is trace tricuspid valve regurgitation. There is no evidence of pulmonary hypertension. Great Vessels The asc aorta is normal in size. Venous The inferior vena cava is normal in size and collapses greater than 50% with inspiration. Pericardium/Pleural There is no evidence of pericardial effusion. Prior Study Comparison No prior study available for comparison. Recommendations, Care & Conclusions No obvious valvular pathology seen on this study. Measurements 2D Linear Measurements IVSd: 1.11 0.6-0.9/0.6-1.0 cm LVIDd: 3.11 3.9-5.3/4.2-5.9 cm LVIDd Index: 1.72 2.4-3.2/2.2-3.1 cm/m2 LVIDs: 2.16 2.0-3.6 cm LVPWd: 1.17 0.7-1.1 cm LA Diam: 2.90 2.7-3.8/3.0-4.0 cm LAIDs Index: 1.60 1.5-2.3 cm/m2 LV Mass: 131.57 67-162/88-224 g LV Mass Index: 72.69 43-95/49-115 g/m2 LVOT Diam: 2.00 3.0+(-)1.3 cm 2D Systolic Function EF 4C: 62.70 >55% EF 2C: 69.10 >55% EF BiP: 66.00 >55% Mitral Valve MV Pk E: 0.81 MV PK A: 1.06 MV Decel Time: 250.00 E/A: 0.80 E'Lateral: 6.31 E'Medial: 5.22 E/E' Med: 15.50 E/E' Lat: 12.80 PHT: 73.00 MVA PHT: 3.01 Decel [place]: 3.24 Aortic Valve AoV Pk [place]: 1.45 AoV Mn [place]: 0.93 AoV VTI: 0.30 AoV Pk Grad: 8.00 Aov Mn Grad: 4.00 NAIN Cont.VTI: 2.79 LVOT LVOT Pk [place]: 1.30 LVOT Mn [place]: 0.80 LVOT VTI: 0.26 LVOT Pk Grad: 7.00 LVOT Mn Grad: 3.00 LVOT Diam: 2.00 LVOT Area: 3.14 Diastolic Function MV Pk E: 0.81 MV Pk A: 1.06 E/A: 0.80 E'Medial: 5.22 E/E' Med: 15.50 E' Laterial: 6.31 E/E' Lat: 12.80 Right Ventricle TAPSE (mm): 19.10 TVS' [place]: 11.00 Tricuspid Valve TR Pk [place]: 1.85 TR Pk Grad: 14.00 RA Press: 3.00 RVSP: 17.00 Great Vessels Aorta Sinus of Valsalva: 3.40 2.0-3.5 cm Ao Asc: 3.40 2.1-3.4 cm Pulmonary Valve PV Pk [place]: 0.87 Peak PV Grad: 3.00 Updated in Other Vendor System with Status of Final Mark Sanchez MD electronically signed on 02/12/2024 3:54:42 PM with status of Final
== END ==
LOC: HO.CARD 13:39
PROVIDERS: PCP Nurse Practitioner Family; Visit Provider Nurse Practitioner Family
DX: R01.1 Cardiac murmur, unspecified (principal)
CPT/HCPCS: 93306

== ENCOUNTER → 2024-02-12 13:42 | Outpatient (BNV) | payer MEDICARE, SELFPAY | PROVIDERS: PCP Nurse Practitioner Family; Visit Provider Internal Medicine | DX: I35.8 Other nonrheumatic aortic valve disorders (principal); I34.81 Nonrheumatic mitral (valve) annulus calcification | CPT/HCPCS: 93306 ==

== ENCOUNTER 2024-04-02 15:20 | Outpatient (AMB) | payer MEDICARE, SELFPAY ==
[2024-04-02 15:33] VITALS: BP 138/80; PULSE 70; O2SAT 98; BMI 29.9
--- NOTE | 2024-04-02 15:33 | A.OFFPC_ITS ---
Vital Signs 04/02/24 15:33 Height 5 ft 4 in Weight 174 lb BMI 29.9 BP 138/80 Blood Pressure Location Rt brachial Position Sitting Pulse 70 Pulse Source Pulse Oximeter Pulse Oximetry (%) 98 Oxygen Delivery Method Room Air Intake Visit Reasons: Pre Op Dr. Christianson-eye surgery 04/04 + 04/25 Intake Note: pt is here for pre op - [facility] eye surgery on 04/04 and 04/25. exam only, no labs or ekg needed. paperwork in exam room Electromechanic Required: No Accompanied by: Self / Same As Patient Allergies No Known Allergies Allergy (Verified 04/02/24 15:34) Tobacco use date assessed: 04/02/24 Fall risk assessment: No Falls in past year Last assessed Fall Risk: 04/02/24 Dental Screening Dental Screen Date: 04/02/24 Did you have a dental visit in the last 12 months?: Yes Did you have a dental problem in the last 6 months where you did not have access to dental care?: No Was dental information given to patient?: Patient has dentist HPI Pre Op Dr. Christianson-eye surgery 04/04 + 04/25 HPI Details Chief Complaint Upcoming cataract surgery evaluation. History of Present Illness The patient is a 78-year-old female presenting with a planned preoperative evaluation for cataract surgery. She has been diagnosed with bilateral cataracts, with one eye scheduled for surgery at the end of March and the other at the beginning of April. She denies any symptoms of fever, chills, nausea, vomiting, chest pain, shortness of breath, or headaches. No history of blurred vision was reported at this visit. The patient has a noted systolic murmur. SHE IS CLEAR FOR SURGERY FROM MY STANDPOINT. Social History Health Maintenance Review of Systems - General: Denies fever, chills - Gastrointestinal: Denies nausea, vomit ing - Cardiovascular: Denies chest pain - Respiratory: Denies shortness of breat h - Neurological: Denies headache, current blurred vision Physical Exam General: Cooperative, healthy appearing, comfortable, no acute distress and well developed Orientation: Patient oriented x3 Limitations: No limitations Head: Normal to inspection Ears: Hearing grossly normal bilaterally, TMs intact Nose: Normal external nose present Face and sinus: Normal facial exam Eyes: Appearance normal, both eyes and all related structures Neck: Normal visual inspection and Yes full ROM, no lymphadenopathy noted Respiratory: Normal respiratory effort and able to speak in complete sentences. Clear to auscultation bilaterally Cardiovascular: Regular rate and rhythm. Normal S1 and S2 with a faint systolic murmur GI: Normal to inspection. Soft to palpation and nontender Skin: No rashes or lesions noted Neuro: Patient oriented x3 Extremities: Normal to inspection, trace edema to the lower extremities Results Plan - Proceed with planned cataract surgerie s as the patient is deemed medically clear for surgery. - Monitoring of systolic murmur with fur ther evaluation if symptomatic changes occur. Patient was informed and verbally consented to the use of an ambient scribe for clinic note documentation during this visit. Discussion Notes I discussed with the patient the planned bilateral cataract surgeries, explaining the procedure, associated risks, and the timeline of the surgeries. The patient was informed that no current contraindications for surgery were identified. Additionally, I addressed the faint systolic murmur observed during examination, explaining the necessity for potential further monitoring if any new symptoms develop. The preoperative clearance includes an understanding of risks versus benefits, and no additional interventions were required at this time. Patient Instructions - Follow up with ophthalmology for plann ed cataract surgeries. - Monitor for any new cardiovascular sym ptoms, such as exacerbated shortness of breath or chest pain, and seek medical attention if they occur. FORMERLY [facility], [facility]1983 Medical History Osteoarthritis Surgical History S/P tonsillectomy History of partial hysterectomy S/P knee surgery Social History Housing: Apartment Patient Tobacco Use Status: Never used Tobacco e-Cigarette/Vaping Use: Never Used Second Hand Smoke Exposure: No service: No Current occupational status: retired Cognitive needs: No Hearing needs: No Vision needs: No Questionnaire PHQ-9 Over the last 2 weeks, how often have you been bothered by any of the following problems? 1. Little interest or pleasure in doing things: not at all 2. Feeling down, depressed, or hopeless: not at all 3. Trouble falling or staying asleep, or sleeping too much: not at all 4. Feeling tired or having little energy: not at all 5. Poor appetite or overeating: not at all 6. Feeling bad about yourself - or that you are a failure or have let yourself or your family down: not at all 7. Trouble concentrating on things, such as reading the newspaper or watching television: not at all 8. Moving or speaking so slowly that other people could have noticed. Or the opposite - being so fidgety or restless that you have been moving around a lot more than usual: not at all 9. Thoughts that you would be better off or of hurting yourself in some way: not at all Total score: 0 Depression Screening Interpretation: Negative Depression Screening Done: Yes 20309 - PHQ-9 Billing: Yes Source: Developed by Drs. Zechariah Lazo, Ivonne Mayer, Bubba Heredia and colleagues, with an educational jennifer from [employer]. Thrive Questionnaire Date Thrive assessed: 04/02/24 I am a: Patient What is your living situation today?: I have a steady place to live Within the past 12 months, did the food you bought not last and you didn't have the money to get more?: Never true Within the past 12 months, did you worry whether your food would run out before you got money to buy more?: Never true Do you have trouble paying for medicines?: No Do you have trouble getting transportation to medical appointments?: No Do you have trouble paying your heating and electricity bill?: No Do you have trouble taking care of your child, family member or friend?: No Do you have trouble with day-to-day activities such as bathing, preparing meals, shopping, managing finances, etc.?: No Are you currently unemployed and looking for a job?: No Are you interested in more education?: No Please select the resources that you would like help with: None Currently or been in a relationship where the following occur: No concerns repor pola THRIVE Score: 0 AUDIT C Alcohol Use Questionnaire (AUDIT-C) 1. How often do you have a drink containing alcohol?: Never 3. How often do you have six or more drinks on one occasion?: Never Total Score: 0 Score Reviewed/Action Taken: Yes STEPHANY-7 AMB Questionnaire STEPHANY-7 Date STEPHANY - 7 assessed: 04/02/24 Feeling nervous, anxious, or on edge: 0 = Not at all Not being able to stop or control worryin = Not at all Worrying too much about different things: 0 = Not at all Trouble relaxin = Not at all Being so restless that it is hard to sit still: 0 = Not at all Becoming easily annoyed or irritable: 0 = Not at all Feeling afraid as if something awful might happen: 0 = Not at all Total STEPHANY-7 score (0-4 normal; 5-9 mild; 10-14 moderate; 15-21 severe): 0 Source: Developed by Drs. Zechariah Lazo, Ivonne Mayer, Bubba Heredia and colleagues, with an educational jennifer from [employer]. STEPHANY-7 Assessment Billing STEPHANY-7 Assessment Tool: STEPHANY-7 Assessment 65420 Physical exam (Primary Care) Vital Signs: Last Vital Signs Pulse 70 04/02/24 15:33 BP 138/80 04/02/24 15:33 Pulse Ox 98 04/02/24 15:33 Oxygen Delivery Method Room Air 04/02/24 15:33 BMI result Body Mass Index 29.9 Tobacco/Smoking Status: Tobacco use Status Tobacco use date assessed 04/02/24 04/02/24 15:37 Patient Tobacco Use Status Never used Tobacco 04/02/24 15:37 e-Cigarette/Vaping Use Never Used 04/02/24 15:37 PHQ-9: PHQ-9 Score PHQ-9: Total score 0 04/02/24 16:00 Depression Screening Interpretation: Negative Thrive Assessment: Date of Thrive Assessment Date Thrive assessed 04/02/24 04/02/24 15:37 Currently or been in a relationship where the following occur: No concerns reported Coding Level of Care Code Est Pt Prev Care >65y(44399) Diagnoses Pre-op evaluation Z01.818 Additional Codes STEPHANY-7 Assessment Billing - STEPHANY-7 Assessment Tool: STEPHANY-7 Assessment 47622 ([id number]) PHQ-9 - 20812 - PHQ-9 Billing: Yes ([id number]) Assessment & Plan Assessment & Plan (1) Pre-op evaluation: Code(s): Z01.818 - Encounter for other preprocedural examination Category: Medical Plan .
== END 2024-04-02 16:38 | disposition home or self-care (01) ==
PROVIDERS: PCP Nurse Practitioner Family; Visit Provider Nurse Practitioner Family
DX: Z01.818 Encounter for other preprocedural examination (principal)

== ENCOUNTER → 2024-04-02 15:20 | Outpatient (BNVA) | payer MEDICARE, SELFPAY | PROVIDERS: PCP Nurse Practitioner Family; Visit Provider Nurse Practitioner Family | DX: Z01.818 Encounter for other preprocedural examination (principal); H26.9 Unspecified cataract; R01.1 Cardiac murmur, unspecified | CPT/HCPCS: 96127; 99212 ==

== ENCOUNTER 2024-08-06 09:01 | Outpatient (REF) | payer MEDICARE, SELFPAY ==
--- OUTSIDE RECORDS SUMMARY | 2024-08-06 11:09 | XMS_ITS | Encounter Summary ---
Author Organization [facility] Address [address] [place] [address] Care Team Providers Care Physician Practice Administrator Name Role Phone Unavailable Primary Care Provider Unavailabl e Prior Encounters Date Type Department Care Team Description 05/11/2021 12:30 PM WATER PROOFER Office Visit [facility] [address], [facility] [address] [place] [address] Hailey Herrera, [facility] 05/11/2021 Orders Only [facility] [address], [facility] [address] [place] [address] Domenic Bauer 05/11/2021 Travel 05/11/2021 11:00 AM WATER PROOFER Office Visit [facility] [address], [facility] [address] [place] [address] Domenic Bauer 04/08/2019 Converted CPS Chart Documents [facility] [address], [facility] [address] [place] [address] <No scans attached> 04/08/2019 Converted 13x Documents [facility] [address], [facility] [address] [place] [address] <No scans attached> 04/08/2019 Converted 13x Documents [facility] [address], [facility] [address] [place] [address] <No scans attached> Last Filed Vital Signs Vital Sign Reading Time Taken Comments Blood Pressure 147/85 05/11/2021 11:45 AM WATER PROOFER Pulse 67 05/11/2021 11:45 AM WATER PROOFER Temperature - - Respiratory Rate - - Oxygen Saturation - - Inhaled Oxygen Concentration - - Weight - - Height - - Body Mass Index - - Plan of Treatment Not on file Procedures Procedure Name Priority Date/Time Associated Diagnosis Comments ORAL HYGIENE INSTRUCTIONS Routine 2021 12:30 PM WATER PROOFER SHANE DECON Routine 05/11/2021 12:30 PM WATER PROOFER TOPICAL APPLICATION OF FLUORIDE VARNISH Routine 05/11/2021 12:30 PM WATER PROOFER PROPHYLAXIS - ADULT Routine 05/11/2021 1 2:30 PM WATER PROOFER LR ANTIBACT IRR/QUAD Routine 05/11/2021 12:30 PM WATER PROOFER LL ANTIBACT IRR/QUAD Routine 05/11/2021 12:30 PM WATER PROOFER UL ANTIBACT IRR/QUAD Routine 05/11/2021 12:30 PM WATER PROOFER UR ANTIBACT IRR/QUAD Routine 05/11/2021 12:30 PM WATER PROOFER INTRAORAL PHOTO Routine 05/11/2021 11:00 AM WATER PROOFER INTRAORAL PHOTO Routine 05/11/2021 11:00 AM WATER PROOFER INTRAORAL PHOTO Routine 05/11/2021 11:00 AM WATER PROOFER INTRAORAL PHOTO Routine 05/11/2021 11:00 AM WATER PROOFER BITEWINGS - FOUR RADIOGRAPHIC IMAGES Routine 05/11/2021 11:00 AM WATER PROOFER ADDITIONAL X-RAY Routine 05/11/2021 11:0 0 AM WATER PROOFER ADDITIONAL X-RAY Routine 05/11/2021 11:0 0 AM WATER PROOFER ADDITIONAL X-RAY Routine 05/11/2021 11:0 0 AM WATER PROOFER ADDITIONAL X-RAY Routine 05/11/2021 11:0 0 AM WATER PROOFER ADDITIONAL X-RAY Routine 05/11/2021 11:0 0 AM WATER PROOFER SINGLE X-RAY Routine 05/11/2021 11:00 AM WATER PROOFER PERIODIC ORAL EVALUATION - ESTABLISHED PATIENT Routine 05/11/2021 11:00 AM WATER PROOFER PERIODIC ORAL EVALUATION - ESTABLISHED PATIENT Routine [...] - ESTABLISHED PATIENT Routine 05/11/2020 2:00 AM WATER PROOFER ORAL HYGIENE INSTRUCTIONS Routine 2020 2:00 AM WATER PROOFER TOPICAL APPLICATION OF FLUORIDE VARNISH Routine 05/11/2020 2:00 AM WATER PROOFER PROPHYLAXIS - ADULT Routine 05/11/2020 2 :00 AM WATER PROOFER 30 CEMENT CROWN Routine 04/13/2020 2:00 AM WATER PROOFER SINGLE X-RAY Routine 04/13/2020 2:00 AM WATER PROOFER 30 TREATMENT OF ROOT CANAL OBSTRUCTION; NON-SURGICAL ACCESS Routine 03/26/2020 2:00 AM WATER PROOFER LIMITED ORAL EVALUATION - PROBLEM FOCUSED Routine 03/26/2020 2:00 AM WATER PROOFER 30 ENDODONTIC THERAPY, MOLAR TOOTH (EXCLUDING FINAL SAM[place]IT[place]) Routine 03/26/2020 2:00 AM WATER PROOFER 30 PULP VITALITY TESTS Routine 2:00 AM WATER PROOFER 30 CORE BUILDUP, INCLUDING ANY PINS WHEN REQUIRED Routine 03/26/2020 2:00 AM WATER PROOFER 30 CROWN PORC POST Routine 03/26/2020 2: 00 AM WATER PROOFER CANCELLED APPOINTMENT Routine 03/19/2020 2:00 AM WATER PROOFER ADDITIONAL X-RAY Routine 03/18/2020 2:00 AM WATER PROOFER SINGLE X-RAY Routine 03/18/2020 2:00 AM WATER PROOFER INTRAORAL PHOTO Routine 03/18/2020 2:00 AM WATER PROOFER PERIODIC ORAL EVALUATION - ESTABLISHED PATIENT Routine [...] - ESTABLISHED PATIENT Routine 04/29/2019 2:00 AM WATER PROOFER ORAL HYGIENE INSTRUCTIONS Routine 2019 2:00 AM WATER PROOFER 15 MB ARESTIN 2 SITE/TTH Routine 020 2:00 AM WATER PROOFER TOPICAL APPLICATION OF FLUORIDE VARNISH Routine 04/29/2019 2:00 AM WATER PROOFER PROPHYLAXIS - ADULT Routine 04/29/2019 2 :00 AM WATER PROOFER ORAL HYGIENE INSTRUCTIONS Routine 2018 2:00 AM [...] - ESTABLISHED PATIENT Routine 04/02/2018 2:00 AM WATER PROOFER ORAL HYGIENE INSTRUCTIONS Routine 2018 2:00 AM WATER PROOFER 1 FM IRR W/GROSS SCALE Routine 9 2:00 AM WATER PROOFER TOPICAL APPLICATION OF FLUORIDE VARNISH Routine 04/02/2018 2:00 AM WATER PROOFER PROPHYLAXIS - ADULT Routine 04/02/2018 2 :00 AM WATER PROOFER BITEWINGS - FOUR RADIOGRAPHIC IMAGES Routine 04/02/2018 2:00 AM WATER PROOFER ADDITIONAL X-RAY Routine 04/02/2018 2:00 AM WATER PROOFER ADDITIONAL X-RAY Routine 04/02/2018 2:00 AM WATER PROOFER ADDITIONAL X-RAY Routine 04/02/2018 2:00 AM WATER PROOFER ADDITIONAL X-RAY Routine 04/02/2018 2:00 AM WATER PROOFER ADDITIONAL X-RAY Routine 04/02/2018 2:00 AM WATER PROOFER SINGLE X-RAY Routine 04/02/2018 2:00 AM WATER PROOFER 19 O AMALGAM 1 SURFACE Routine 8 [...]
--- OUTSIDE RECORDS SUMMARY | 2024-08-06 11:09 | XMS_ITS | Clinical Summary ---
Author Organization [facility] Address [address] [place] [address] Care Team Providers Care Credit Reference Clerk Name Role Phone Unavailable Primary Care Provider [...] Comments Blood Pressure 147/85 05/11/2021 11:45 AM TANK REFINISHER Pulse 67 05/11/2021 11:45 AM TANK REFINISHER Temperature - - Respiratory Rate - - [...] PROPHYLAXIS - ADULT Routine 05/11/2021 12:30 PM TANK REFINISHER from Last 3 Months or Most Recently Relevant to Health Maintenance Insurance [employer]
[2024-08-06 13:16] LABS: MANUAL DIFF FLAG NO
[2024-08-06 13:27] LABS: B Type Natriuretic Peptide 34 pg/mL (<100); Basophils Absolute Auto 0.1 X10*3/uL (0.0-0.2); Basophils Percent Auto 1.2 % (0-2); Eosinophils Absolute Auto 0.1 X10*3/uL (0.0-0.4); Eosinophils Percent Auto 2.2 % (0-4); Hematocrit 44.3 % (37.0-47.0); Hemoglobin 14.8 g/dl (12.0-16.0); Imm Gran Abs Auto 0.02 X10*3/uL (0.00-0.03); Imm Gran Pct Auto 0.4 % (0.0-0.4); Lymphocytes Absolute Auto 1.4 X10*3/uL (1.2-4.9); Lymphocytes Percent Auto 27.3 % (20-40); Mean Corpuscular HGB Conc 33.4 g/dl (31.0-35.0); Mean Corpuscular Hemoglobin 30.6 pg (27.0-33.0); Mean Corpuscular Volume 91.7 fL (80.0-98.0); Monocytes Absolute Auto 0.6 X10*3/uL (0.1-1.2); Monocytes Percent Auto 11.9 % (2-11); Neutrophils Absolute Auto 2.9 x10*3/uL (2.0-8.3); Platelet Count 226 X10*3/uL (160-400); Red Blood Count 4.83 X10*6/uL (4.20-5.50); Red Cell Distribution Width 12.6 % (11.0-16.0); White Blood Count 5.1 X10*3/uL (4.8-10.8)
[2024-08-06 13:29] LABS: Appearance Urine Turbid; Color Urine Yellow; Glucose Urine UA Negative (Negative); Leukocyte Esterase Urine Negative (Negative); Nitrite Urine Negative (Negative); PH 5.5 (5.0-9.0); UMIC TRIGGER UACC YES; Urine Blood Trace (Negative); Urine Ketones Negative (Negative); Urine Protein Negative (Neg-Trace)
[2024-08-06 13:35] LABS: Bacteria Urine None Seen (None Seen); Hyaline Casts Urine 0-2 /LPF (0-2); RBC Urine 0-2 /HPF (0-2); Squamous Epithelial Cell Urine 0-2 /HPF (0-2); WBC Urine 0-5 /HPF (0-5)
[2024-08-06 14:11] LABS: Alanine Aminotransferase 37 U/L (0-31); Albumin Level 4.2 g/dL (3.5-5.0); Alkaline Phosphatase 97 U/L (39-117); Anion Gap 9 (12-20); Aspartate Amino Transferase 34 U/L (5-31); Bilirubin Total 0.9 mg/dL (0.0-1.0); Blood Urea Nitrogen 13 mg/dL (9-16); Calcium 9.5 mg/dL (8.4-10.2); Carbon Dioxide 27 mmol/L (22-29); Chloride 108 mmol/L (96-108); Cholesterol 170 mg/dL (<200); Estimated Glomerular Filt Rate > 60; Glucose Fasting 96 mg/dL (60-99); HDL Cholesterol 61 mg/dL (>40); LDL Cholesterol Calculated 90 mg/dL (<100); Potassium 4.2 mmol/L (3.3-5.1); Sodium 140 mmol/L (135-145); TSH reflex Free T4 1.05 uIU/mL (0.32-4.0); Total Protein 6.8 g/dL (6.5-8.0); Triglycerides 96 mg/dL (<150)
[2024-08-07 03:35] LABS: Hepatitis A Antibody IgM 0.14 Index (0-0.79); ~Hepatitis A Antibody IgM Nonreactive (Nonreactive)
[2024-08-07 03:39] LABS: HBS Num1 0.79 mIU/mL (0-7.99); HBsAGNum1 0.32 S/CO (0.00-0.99); Hepatitis B Core Antibody Nonreactive (Nonreactive); Hepatitis B Surface Antigen Negative (Negative); ~HepC Num1 0.09 S/CO (0.00-0.79); ~Hepatitis B Surface Antibody NONREACTIVE (Nonreactive); ~Hepatitis C Antibody Nonreactive (Nonreactive)
== END 2024-08-06 09:02 | disposition home or self-care (01) ==
LOC: HO.HMGCLDS 09:01
PROVIDERS: PCP Nurse Practitioner Family; Visit Provider Nurse Practitioner Family
DX: Z00.00 Encounter for general adult medical examination without abnormal findings (principal); M79.89 Other specified soft tissue disorders; R74.8 Abnormal levels of other serum enzymes
CPT/HCPCS: 36415; 80053; 80061; 81001; 83880; 84443; 85025; 86704; 86706; 86709; 86803; 87340; 99397

== ENCOUNTER 2024-08-06 09:01 | Outpatient (AMB) | payer MEDICARE, SELFPAY ==
--- NOTE | 2024-08-06 09:06 | A.OFFPC_ITS ---
Vital Signs 08/06/24 09:08 Height 5 ft 4 in Weight 173 lb BMI 29.7 BP 120/80 Blood Pressure Location Rt brachial Position Sitting Pulse 59 Pulse Source Pulse Oximeter Temp 99.6 F Temp Source Oral Pulse Oximetry (%) 98 Intake Visit Reasons: PE/no active insurance/see OA first Firer Helper Required: No Accompanied by: Self / Same As Patient Allergies No Known Allergies Allergy (Verified 08/06/24 09:44) Medication List - Last Reconciled 08/06/24 by Tai Lindquist [facility] alendronate 70 mg PO QWEEK 90 days amlodipine-benazepril 5-40 mg 1 cap PO DAILY 90 days cholecalciferol (vitamin D3) 25 mcg PO DAILY famotidine 40 mg PO DAILY levothyroxine 75 mcg PO DAILY 90 days metoprolol succinate ER 12.5 mg (1/2 x 25 mg) PO DAILY rosuvastatin 10 mg PO DAILY Tobacco use date assessed: 08/06/24 Fall risk assessment: No Falls in past year Last assessed Fall Risk: 08/06/24 Dental Screening Dental Screen Date: 04/02/24 HPI PE/no active insurance/see OA first HPI Details History of Present Illness The patient is a 78-year-old female presenting with concerns regarding lower extremity swelling. She reports that the swelling has been persistent and primarily affects the lower limbs, with a greater intensity in the left leg. The left extremity swelling has been exacerbated since she underwent a total knee arthroplasty on the left knee. The patient also has a history of hypothyroidism, for which she is currently taking levothyroxine. Additionally, she describes a lifestyle involving a high intake of sodium-rich canned foods, which could contribute to her symptoms. She denies the utilization of compression stockings for her condition. In terms of previous evaluations and testing, an echocardiogram was performed in the fall of 2023, which indicated no significant abnormalities. Despite the absence of major cardiac issues, she does have a known benign systolic murmur. It is notable that she is up to date on her mammography and bone density screenings. Her last Cologuard screening was compliant and not due until next year. She has also been adhering to vitamin D supplementation. Health Maintenance - Mammogram: Up to date - Bone Density: Up to date - Cologuard: Not due until next year - Vitamin D supplementation: Ongoing Social History - Dietary intake includes a high consump tion of sodium-rich canned goods - No interest in using compression stock ings for edema control Review of Systems - Cardiovascular: Reports lower extremit y swelling - Endocrine: Denies any recent changes i n hypothyroid-related symptoms Physical Exam General: Cooperative, healthy appearing, comfortable, no acute distress and well developed Orientation: Patient oriented x3 Limitations: No limitations Head: Normal to inspection Ears: Hearing grossly normal bilaterally Nose: Normal external nose present Face and sinus: Normal facial exam Eyes: Appearance normal, both eyes and all related structures Neck: Normal visual inspection and Yes full ROM Respiratory: Normal respiratory effort and able to speak in complete sentences. Clear to auscultation bilaterally Cardiovascular: Regular rate and rhythm. Normal S1 and S2, faint systolic murmur noted GI: Normal to inspection. Soft to palpation and nontender Skin: No rashes or lesions noted Neuro: Patient oriented x3 Extremities: +1 pain and swelling in lower extremities, left greater than right. Normal to inspection Results Plan I will conduct a BNP test and a venous ultrasound to further investigate the lower extremity edema. Rechecks of thyroid function and evaluations of liver and kidney function are necessary to rule out systemic causes of the swelling. The current benign systolic murmur and prior echocardiogram findings do not indicate immediate cardiac concern. The patient was advised to reduce sodium intake and elevate her legs as measures to alleviate swelling. Discussion Notes I discussed with the patient the possible benign nature of her lower extremity swelling and the importance of ruling out both cardiac and venous causes with further testing, including a BNP test and a venous ultrasound. We have agreed to a re-evaluation of her thyroid levels to ensure effective management of her hypothyroidism. Dietary sodium intake was a major topic, with guidance for reducing the consumption of canned goods. I also advised the elevation of her legs to help reduce the swelling. The patient understands the recommendations and is in agreement with the outlined plan. Patient Instructions - Elevate legs when sitting to reduce sw elling. - Limit sodium intake, avoid canned food s when possible. - Continue taking levothyroxine as presc ribed. - Follow up for lab testing as discussed . [facility] Medical History Osteoarthritis Surgical History S/P tonsillectomy History of partial hysterectomy S/P knee surgery Social History Housing: Apartment Patient Tobacco Use Status: Never used Tobacco e-Cigarette/Vaping Use: Never Used Second Hand Smoke Exposure: No service: No Current occupational status: retired Cognitive needs: No Hearing needs: No Vision needs: No Questionnaire Thrive Questionnaire Date Thrive assessed: 08/06/24 I am a: Patient What is your living situation today?: I have a steady place to live Within the past 12 months, did the food you bought not last and you didn't have the money to get more?: Never true Within the past 12 months, did you worry whether your food would run out before you got money to buy more?: Never true Do you have trouble paying for medicines?: No Do you have trouble getting transportation to medical appointments?: No Do you have trouble paying your heating and electricity bill?: No Do you have trouble taking care of your child, family member or friend?: No Do you have trouble with day-to-day activities such as bathing, preparing meals, shopping, managing finances, etc.?: No Are you currently unemployed and looking for a job?: No Are you interested in more education?: No Please select the resources that you would like help with: None Currently or been in a relationship where the following occur: No concerns reported THRIVE Score: 0 STEPHANY-7 AMB Questionnaire STEPHANY-7 Date STEPHANY - 7 assessed: 04/02/24 Source: Developed by Drs. Zechariah Lazo, Ivonne Mayer, Bubba Heredia and colleagues, with an educational jennifer from [employer]. Physical exam (Primary Care) Vital Signs: Last Vital Signs Temp 99.6 F 08/06/24 09:08 Pulse 59 08/06/24 09:08 BP 120/80 08/06/24 09:08 Pulse Ox 98 08/06/24 09:08 BMI result Body Mass Index 29.7 Tobacco/Smoking Status: Tobacco use Status Tobacco use date assessed 08/06/24 08/06/24 09:14 Patient Tobacco Use Status Never used Tobacco 08/06/24 09:14 e-Cigarette/Vaping Use Never Used 08/06/24 09:14 Thrive Assessment: Date of Thrive Assessment Date Thrive assessed 08/06/24 08/06/24 09:14 Currently or been in a relationship where the following occur: No concerns reported Coding Level of Care Code Est Pt Prev Care >65y(19539) Diagnoses Physical exam Z00.00 Swelling of both lower extremities M79.89 Assessment & Plan Assessment & Plan (1) Physical exam: Code(s): Z00.00 - Encounter for general adult medical examination without abnormal findings Category: Medical (2) Swelling of both lower extremities: Code(s): M79.89 - Other specified soft tissue disorders Category: Medical Plan . Orders: Orders AMB EKG-In Office Today Z00.00 - Encounter for general adult medical examination without abnormal findings Comprehensive [place]. Panel Fast Today Z00.00 - Encounter for general adult medical examination without abnormal findings Lipid Panel Today Z00.00 - Encounter for general adult medical examination without abnormal findings B Type Natriuretic Peptide Today M79.89 - Other specified soft tissue disorders US venous insuf bilat Today M79.89 - Other specified soft tissue disorders Complete Blood Count Auto Diff Today Z00.00 - Encounter for general adult medical examination without abnormal findings TSH reflex Free T4 Today Z00.00 - Encounter for general adult medical examination without abnormal findings UA CC w/rflx Micro + Cult Today Z00.00 - Encounter for general adult medical examination without abnormal findings
[2024-08-06 09:08] VITALS: BP 120/80; PULSE 59; TEMP 37.6; O2SAT 98; BMI 29.7
--- OUTSIDE RECORDS SUMMARY | 2024-08-06 09:37 | XMS_ITS | Encounter Summary ---
Author Organization [facility] Address [address] [place] [address] Care Team Providers Care Hose Suspender Cutter Name Role Phone Unavailable Primary Care Provider Unavailabl e Prior Encounters Date Type Department Care Team Description 05/11/2021 12:30 PM 8TH GRADE MATHEMATICS TEACHER Office Visit [facility] [address], [facility] [address] [place] [address] Hailey Herrera, [facility] 05/11/2021 Orders Only [facility] [address], [facility] [address] [place] [address] Domenic Bauer 05/11/2021 Travel 05/11/2021 11:00 AM 8TH GRADE MATHEMATICS TEACHER Office Visit [facility] [address], [facility] [address] [place] [address] Domenic Bauer 04/08/2019 Converted CPS Chart Documents [facility] [address], [facility] [address] [place] [address] <No scans attached> 04/08/2019 Converted 13x [facility] [address], [facility] [address] [place] [address] <No scans attached> 04/08/2019 Converted 13x Documents [facility] [address], [facility] [address] [place] [address] <No scans attached> Last Filed Vital Signs Vital Sign Reading Time Taken Comments Blood Pressure 147/85 05/11/2021 11:45 AM 8TH GRADE MATHEMATICS TEACHER Pulse 67 05/11/2021 11:45 AM 8TH GRADE MATHEMATICS TEACHER Temperature - - Respiratory Rate - - Oxygen Saturation - - Inhaled Oxygen Concentration - - Weight - - Height - - Body Mass Index - - Plan of Treatment Not on file Procedures Procedure Name Priority Date/Time Associated Diagnosis Comments ORAL HYGIENE INSTRUCTIONS Routine 2021 12:30 PM 8TH GRADE MATHEMATICS TEACHER SHANE DECON Routine 05/11/2021 12:30 PM 8TH GRADE MATHEMATICS TEACHER TOPICAL APPLICATION OF FLUORIDE VARNISH Routine 05/11/2021 12:30 PM 8TH GRADE MATHEMATICS TEACHER PROPHYLAXIS - ADULT Routine 05/11/2021 1 2:30 PM 8TH GRADE MATHEMATICS TEACHER LR ANTIBACT IRR/QUAD Routine 05/11/2021 12:30 PM 8TH GRADE MATHEMATICS TEACHER LL ANTIBACT IRR/QUAD Routine 05/11/2021 12:30 PM 8TH GRADE MATHEMATICS TEACHER UL ANTIBACT IRR/QUAD Routine 05/11/2021 12:30 PM 8TH GRADE MATHEMATICS TEACHER UR ANTIBACT IRR/QUAD Routine 05/11/2021 12:30 PM 8TH GRADE MATHEMATICS TEACHER INTRAORAL PHOTO Routine 05/11/2021 11:00 AM 8TH GRADE MATHEMATICS TEACHER INTRAORAL PHOTO Routine 05/11/2021 11:00 AM 8TH GRADE MATHEMATICS TEACHER INTRAORAL PHOTO Routine 05/11/2021 11:00 AM 8TH GRADE MATHEMATICS TEACHER INTRAORAL PHOTO Routine 05/11/2021 11:00 AM 8TH GRADE MATHEMATICS TEACHER BITEWINGS - FOUR RADIOGRAPHIC IMAGES Routine 05/11/2021 11:00 AM 8TH GRADE MATHEMATICS TEACHER ADDITIONAL X-RAY Routine 05/11/2021 11:0 0 AM 8TH GRADE MATHEMATICS TEACHER ADDITIONAL X-RAY Routine 05/11/2021 11:0 0 AM 8TH GRADE MATHEMATICS TEACHER ADDITIONAL X-RAY Routine 05/11/2021 11:0 0 AM 8TH GRADE MATHEMATICS TEACHER ADDITIONAL X-RAY Routine 05/11/2021 11:0 0 AM 8TH GRADE MATHEMATICS TEACHER ADDITIONAL X-RAY Routine 05/11/2021 11:0 0 AM 8TH GRADE MATHEMATICS TEACHER SINGLE X-RAY Routine 05/11/2021 11:00 AM 8TH GRADE MATHEMATICS TEACHER PERIODIC ORAL EVALUATION - ESTABLISHED PATIENT Routine 05/11/2021 11:00 AM 8TH GRADE MATHEMATICS TEACHER PERIODIC ORAL EVALUATION - ESTABLISHED PATIENT Routine 11/09/2020 2:00 AM CDT ORAL HYGIENE INSTRUCTIONS Routine 2020 2:00 AM CDT 1 FM IRR W/GROSS SCALE Routine 2:00 AM CDT PROPHYLAXIS - ADULT Routine 11/09/2020 2 :00 AM CDT BITEWINGS - FOUR RADIOGRAPHIC IMAGES Routine 11/09/2020 2:00 AM CDT ADDITIONAL X-RAY Routine 11/09/2020 2:00 AM CDT ADDITIONAL X-RAY Routine 11/09/2020 2:00 AM CDT ADDITIONAL X-RAY Routine 11/09/2020 2:00 AM CDT ADDITIONAL X-RAY Routine 11/09/2020 2:00 AM CDT ADDITIONAL X-RAY Routine 11/09/2020 2:00 AM CDT SINGLE X-RAY Routine 11/09/2020 2:00 AM CDT PERIODIC ORAL EVALUATION - ESTABLISHED PATIENT Routine 05/11/2020 2:00 AM 8TH GRADE MATHEMATICS TEACHER ORAL HYGIENE INSTRUCTIONS Routine 2020 2:00 AM 8TH GRADE MATHEMATICS TEACHER TOPICAL APPLICATION OF FLUORIDE VARNISH Routine 05/11/2020 2:00 AM 8TH GRADE MATHEMATICS TEACHER PROPHYLAXIS - ADULT Routine 05/11/2020 2 :00 AM 8TH GRADE MATHEMATICS TEACHER 30 CEMENT CROWN Routine 04/13/2020 2:00 AM 8TH GRADE MATHEMATICS TEACHER SINGLE X-RAY Routine 04/13/2020 2:00 AM 8TH GRADE MATHEMATICS TEACHER 30 TREATMENT OF ROOT CANAL OBSTRUCTION; NON-SURGICAL ACCESS Routine 03/26/2020 2:00 AM 8TH GRADE MATHEMATICS TEACHER LIMITED ORAL EVALUATION - PROBLEM FOCUSED Routine 03/26/2020 2:00 AM 8TH GRADE MATHEMATICS TEACHER 30 ENDODONTIC THERAPY, MOLAR TOOTH (EXCLUDING FINAL SHINTO) Routine 03/26/2020 2:00 AM 8TH GRADE MATHEMATICS TEACHER 30 PULP VITALITY TESTS Routine 2:00 AM 8TH GRADE MATHEMATICS TEACHER 30 CORE BUILDUP, INCLUDING ANY PINS WHEN REQUIRED Routine 03/26/2020 2:00 AM 8TH GRADE MATHEMATICS TEACHER 30 CROWN PORC POST Routine 03/26/2020 2: 00 AM 8TH GRADE MATHEMATICS TEACHER CANCELLED APPOINTMENT Routine 03/19/2020 2:00 AM 8TH GRADE MATHEMATICS TEACHER ADDITIONAL X-RAY Routine 03/18/2020 2:00 AM 8TH GRADE MATHEMATICS TEACHER SINGLE X-RAY Routine 03/18/2020 2:00 AM 8TH GRADE MATHEMATICS TEACHER INTRAORAL PHOTO Routine 03/18/2020 2:00 AM 8TH GRADE MATHEMATICS TEACHER PERIODIC ORAL EVALUATION - ESTABLISHED PATIENT Routine 11/04/2019 2:00 AM CDT ORAL HYGIENE INSTRUCTIONS Routine 2019 2:00 AM CDT TOPICAL APPLICATION OF FLUORIDE VARNISH Routine 11/04/2019 2:00 AM CDT PROPHYLAXIS - ADULT Routine 11/04/2019 2 :00 AM CDT BITEWINGS - FOUR RADIOGRAPHIC IMAGES Routine 11/04/2019 2:00 AM CDT ADDITIONAL X-RAY Routine 11/04/2019 2:00 AM CDT ADDITIONAL X-RAY Routine 11/04/2019 2:00 AM CDT ADDITIONAL X-RAY Routine 11/04/2019 2:00 AM CDT ADDITIONAL X-RAY Routine 11/04/2019 2:00 AM CDT ADDITIONAL X-RAY Routine 11/04/2019 2:00 AM CDT SINGLE X-RAY Routine 11/04/2019 2:00 AM CDT PERIODIC ORAL EVALUATION - ESTABLISHED PATIENT Routine 04/29/2019 2:00 AM 8TH GRADE MATHEMATICS TEACHER ORAL HYGIENE INSTRUCTIONS Routine 2019 2:00 AM 8TH GRADE MATHEMATICS TEACHER 15 MB ARESTIN 2 SITE/TTH Routine 020 2:00 AM 8TH GRADE MATHEMATICS TEACHER TOPICAL APPLICATION OF FLUORIDE VARNISH Routine 04/29/2019 2:00 AM 8TH GRADE MATHEMATICS TEACHER PROPHYLAXIS - ADULT Routine 04/29/2019 2 :00 AM 8TH GRADE MATHEMATICS TEACHER ORAL HYGIENE INSTRUCTIONS Routine 2018 2:00 AM CDT TOPICAL APPLICATION OF FLUORIDE VARNISH Routine 10/08/2018 2:00 AM CDT PROPHYLAXIS - ADULT Routine 10/08/2018 2 :00 AM CDT PERIODIC ORAL EVALUATION - ESTABLISHED PATIENT Routine 10/08/2018 2:00 AM CDT BITEWINGS - FOUR RADIOGRAPHIC IMAGES Routine 10/08/2018 2:00 AM CDT ADDITIONAL X-RAY Routine 10/08/2018 2:00 AM CDT ADDITIONAL X-RAY Routine 10/08/2018 2:00 AM CDT ADDITIONAL X-RAY Routine 10/08/2018 2:00 AM CDT ADDITIONAL X-RAY Routine 10/08/2018 2:00 AM CDT ADDITIONAL X-RAY Routine 10/08/2018 2:00 AM CDT SINGLE X-RAY Routine 10/08/2018 2:00 AM CDT PERIODIC ORAL EVALUATION - ESTABLISHED PATIENT Routine 04/02/2018 2:00 AM 8TH GRADE MATHEMATICS TEACHER ORAL HYGIENE INSTRUCTIONS Routine 2018 2:00 AM 8TH GRADE MATHEMATICS TEACHER 1 FM IRR W/GROSS SCALE Routine 9 2:00 AM 8TH GRADE MATHEMATICS TEACHER TOPICAL APPLICATION OF FLUORIDE VARNISH Routine 04/02/2018 2:00 AM 8TH GRADE MATHEMATICS TEACHER PROPHYLAXIS - ADULT Routine 04/02/2018 2 :00 AM 8TH GRADE MATHEMATICS TEACHER BITEWINGS - FOUR RADIOGRAPHIC IMAGES Routine 04/02/2018 2:00 AM 8TH GRADE MATHEMATICS TEACHER ADDITIONAL X-RAY Routine 04/02/2018 2:00 AM 8TH GRADE MATHEMATICS TEACHER ADDITIONAL X-RAY Routine 04/02/2018 2:00 AM 8TH GRADE MATHEMATICS TEACHER ADDITIONAL X-RAY Routine 04/02/2018 2:00 AM 8TH GRADE MATHEMATICS TEACHER ADDITIONAL X-RAY Routine 04/02/2018 2:00 AM 8TH GRADE MATHEMATICS TEACHER ADDITIONAL X-RAY Routine 04/02/2018 2:00 AM 8TH GRADE MATHEMATICS TEACHER SINGLE X-RAY Routine 04/02/2018 2:00 AM 8TH GRADE MATHEMATICS TEACHER 19 O AMALGAM 1 SURFACE Routine 8 2:00 AM CDT 14 O AMALGAM 1 SURFACE Routine 8 2:00 AM CDT 3 O AMALGAM 1 SURFACE Routine 09/25/2017 2:00 AM CDT 15 CROWN PFM POST Routine 09/25/2017 2:0 0 AM CDT 2 CROWN PFM POST Routine 09/25/2017 2:00 AM CDT COMPREHENSIVE ORAL EVALUATION - NEW OR ESTABLISHED PATIENT Routine 09/25/2017 2:00 AM CDT ORAL HYGIENE INSTRUCTIONS Routine 2017 2:00 AM CDT TOPICAL APPLICATION OF FLUORIDE VARNISH Routine 09/25/2017 2:00 AM CDT PROPHYLAXIS - ADULT Routine 09/25/2017 2 :00 AM CDT PANORAMIC RADIOGRAPHIC IMAGE Routine 09/25/2017 2:00 AM CDT INTRAORAL - COMPREHENSIVE SERIES OF RADIOGRAPHIC IMAGES Routine 09/25/2017 2:00 AM CDT INTRAORAL PHOTO Routine 09/25/2017 2:00 AM CDT INTRAORAL PHOTO Routine 09/25/2017 2:00 AM CDT INTRAORAL PHOTO Routine 09/25/2017 2:00 AM CDT INTRAORAL PHOTO Routine 09/25/2017 2:00 AM CDT 14 DOL COMPOSITE FILLING Routine 018 2:00 AM CDT 31 O COMPOSITE FILLING Routine 8 2:00 AM CDT 30 O COMPOSITE FILLING Routine 8 2:00 AM CDT 18 O COMPOSITE FILLING Routine 8 2:00 AM CDT 5 B COMPOSITE FILLING Routine 09/25/2017 2:00 AM CDT Visit Diagnoses Not on file Insurance [employer]
--- OUTSIDE RECORDS SUMMARY | 2024-08-06 09:37 | XMS_ITS | Clinical Summary ---
Author Organization [facility] Address [address] [place] [address] Care Team Providers Care Senior Web Applications Developer Name Role Phone Unavailable Primary Care Provider Unavailabl e Allergies No known active allergies Medications alendronate (FOSAMAX) 70 mg tablet TAKE 1 TABLET BY MOUTH EVERY WEEK DIRECTED 05/07/2021 Active amLODIPine-pooja zepriL (LOTREL) 5-40 mg capsule Take 1 capsule by mouth 1 (one) time each day. 05/07/2021 Active atorvastatin (LIPITOR) 40 mg tablet Take 40 mg by mouth every night. 05/07/2021 Active famotidine (PEPCID) 40 mg tablet Take 40 mg by mouth 1 (one) time each day. 05/07/2021 Active levothyroxine (SYNTHROID, UNITHROID) 75 mcg tablet Take 75 mcg by mouth 1 (one) time each day. 05/07/2021 Active Active Problems Problem Noted Date Diagnosed Date Acute pain of left knee 10/19/2020 Primary osteoarthritis of both knees 10/12/2020 Social History Tobacco Use Types Packs/Day Years Used Date Smoking Tobacco: Never Smokeless Tobacco: Never Alcohol Use Standard Drinks/Week Comments Never 0 (1 standard drink = 0.6 oz pur e alcohol) Comments No Sex and Gender Information Value Date Recorded Sex Assigned at Not on file Legal Sex Female 1:10 PM PST Gender Identity Not on file Sexual Orientation Not on file Last Filed Vital Signs Vital Sign Reading Time Taken Comments Blood Pressure 147/85 05/11/2021 11:45 AM CARVER AND CHECKERER SPECIALS Pulse 67 05/11/2021 11:45 AM CARVER AND CHECKERER SPECIALS Temperature - - Respiratory Rate - - Oxygen Saturation - - Inhaled Oxygen Concentration - - Weight - - Height - - Body Mass Index - - Plan of Treatment Health Maintenance Due Date Last Done Comments Dental Prophylaxis 11/09/2021 05/11/2021, 0 11/09/2020, 05/11/2020, Additional history exists Meningococcal B Vaccine Aged Out No l onger eligible based on patient's age to complete this topic Procedures Procedure Name Priority Date/Time Associated Diagnosis Comments PROPHYLAXIS - ADULT Routine 05/11/2021 12:30 PM CARVER AND CHECKERER SPECIALS from Last 3 Months or Most Recently Relevant to Health Maintenance Insurance [employer]
== END 2024-08-06 09:56 | disposition home or self-care (01) ==
PROVIDERS: PCP Nurse Practitioner Family; Visit Provider Nurse Practitioner Family
DX: Z00.00 Encounter for general adult medical examination without abnormal findings (principal); M79.89 Other specified soft tissue disorders

== ENCOUNTER 2024-08-09 10:24 | Outpatient (REF) | payer MEDICARE, SELFPAY ==
[2024-08-09 13:10] LABS: Urine Cytology See Pathology rpt
[2024-08-09 13:38] LABS: Appearance Urine Clear; Color Urine Yellow; Glucose Urine UA Negative (Negative); Leukocyte Esterase Urine Moderate (2+) (Negative); Nitrite Urine Negative (Negative); Specific Gravity - Urine 1.015 (1.005-1.025); UMIC TRIGGER UACC YES; Urine Blood Trace (Negative); Urine Ketones Negative (Negative); Urine Protein Negative (Neg-Trace)
[2024-08-09 13:58] LABS: Bacteria Urine None Seen (None Seen); Hyaline Casts Urine 0-2 /LPF (0-2); RBC Urine 0-2 /HPF (0-2); UACC Culture Trigger YES; WBC Urine 0-5 /HPF (0-5)
== END 2024-08-09 10:25 | disposition home or self-care (01) ==
LOC: HO.HMGCLDS 10:24
PROVIDERS: PCP Nurse Practitioner Family; Visit Provider Nurse Practitioner Family
DX: R31.29 Other microscopic hematuria (principal)
CPT/HCPCS: 81001; 87086; 88112

== ENCOUNTER 2024-08-28 10:05 | Outpatient (REF) | payer MEDICARE, SELFPAY ==
--- NOTE | ~2024-08-28 | US_ITS ---
EXAMINATION: US LOWER EXTREMITY VENOUS (REFLUX EXAM), BILATERAL CLINICAL INFORMATION: Swelling. COMPARISON: None. TECHNIQUE: Color flow triplex imaging and compression Doppler was performed to evaluate both the deep and the superficial systems bilaterally. To evaluate the superficial system, the examination was performed in the upright position. Color-flow Doppler ultrasound and compression ultrasound were utilized. In addition, maneuvers were utilized to demonstrate reflux. FINDINGS: 1. DEEP VENOUS ULTRASOUND OF THE RIGHT LOWER EXTREMITY: Common Femoral Vein: Compressible, normal respiratory variation and augmented flow. Femoral Vein: Compressible, normal color flow and augmentation. Popliteal Vein: Compressible, normal augmentation. Deep Reflux: There is no evidence of reflux in the deep system in either the common femoral vein, superficial femoral or the popliteal vein. There is no evidence of a Mina's cyst. 2. SUPERFICIAL ULTRASOUND WITH DOPPLER OF RIGHT LOWER EXTREMITY: GREAT SAPHENOUS VEIN: Saphenofemoral Junction: 0.7 cm; Reflux: 0 ms Proximal Thigh: 0.5 cm; Reflux: 0 ms Mid Thigh: 0.4 cm; Reflux: 0 ms Distal Thigh: 0.3 cm; Reflux: 0 ms At Knee: 0.3 cm; Reflux: 0 ms Proximal Calf: 0.3 cm; Reflux: 0 ms Mid Calf: 0.2 cm; Reflux: 0 ms Distal Calf: 0.3 cm; Reflux: 0 ms DUPLICATED MEDIAL GREAT SAPHENOUS VEIN: Diameter: 0.4 cm. Reflux: NA DUPLICATED LATERAL GREAT SAPHENOUS VEIN: Diameter: None imaged Reflux: NA SMALL SAPHENOUS VEIN: Saphenopopliteal Junction: 0.1 cm; Reflux: 0 ms Proximal: 0.2 cm; Reflux: 0 ms Distal: 0.3 cm; Reflux: 0 ms VEIN OF GIACOMINI: Size: NA Reflux: NA PERFORATORS: Location: Proximal to distal calf. Size: 0.1-0.3 cm. Reflux: NA VARICOSITIES: Location: None imaged. Size: NA Reflux: NA 3. DEEP VENOUS ULTRASOUND OF THE LEFT LOWER EXTREMITY: Common Femoral Vein: Compressible, normal respiratory variation and augmented flow. Femoral Vein: Compressible, normal color flow and augmentation. Popliteal Vein: Compressible, normal augmentation. Deep Reflux: There is no evidence of reflux in the deep system in either the common femoral vein, superficial femoral or the popliteal vein. There is no evidence of a Mina's cyst. 4. SUPERFICIAL ULTRASOUND WITH DOPPLER OF LEFT LOWER EXTREMITY: GREAT SAPHENOUS VEIN: Saphenofemoral Junction: 0.9 cm; Reflux: 0 ms Proximal Thigh: 0.4 cm; Reflux: 0 ms Mid Thigh: 0.4 cm; Reflux: 0 ms Distal Thigh: 0.4 cm; Reflux: 0 ms At Knee: 0.4 cm; Reflux: 0 ms Proximal Calf: 0.3 cm; Reflux: 0 ms Mid Calf: 0.2 cm; Reflux: 0 ms Distal Calf: 0.2 cm; Reflux: 0 ms DUPLICATED MEDIAL GREAT SAPHENOUS VEIN: Diameter: 0.3 cm. Reflux: NA DUPLICATED LATERAL GREAT SAPHENOUS VEIN: Diameter: None imaged. Reflux: NA SMALL SAPHENOUS VEIN: Saphenopopliteal Junction: 0.1 cm; Reflux: 0 ms Proximal: 0.2 cm; Reflux: 0 ms Distal: 0.2 cm; Reflux: 0 ms VEIN OF GIACOMINI: Size: NA Reflux: NA PERFORATORS: Location: Proximal to distal calf and mid thigh. Size: 0.2 cm. Reflux: NA VARICOSITIES: Location: None Imaged Size: NA Reflux: NA US/US venous insuf bilat IMPRESSION: Right: No venous insufficiency. No gross varices. Perforators without reflux. Left: No venous insufficiency. No varices. Perforators without reflux. Electronically signed by: Malcolm Bill MD 08/28/2024 02:54 PM EDT
== END 2024-08-28 10:06 | disposition home or self-care (01) ==
LOC: HO.US 10:05
PROVIDERS: PCP Nurse Practitioner Family; Visit Provider Nurse Practitioner Family
DX: R60.0 Localized edema (principal)
CPT/HCPCS: 93970

== ENCOUNTER → 2024-08-28 10:07 | Outpatient (BNV) | payer MEDICARE, SELFPAY | PROVIDERS: PCP Nurse Practitioner Family; Visit Provider Radiology Diagnostic Radiology | DX: M79.89 Other specified soft tissue disorders (principal) | CPT/HCPCS: 93970 ==

== ENCOUNTER 2024-09-12 14:34 | Outpatient (REF) | payer MEDICARE, SELFPAY ==
--- OUTSIDE RECORDS SUMMARY | 2024-09-12 17:43 | XMS_ITS | Clinical Summary ---
Author Organization [facility] Address [address] [place] [address] Care Team Providers Care Data Governance Analyst Name Role Phone Unavailable Primary Care Provider [...] Comments Blood Pressure 147/85 05/11/2021 11:45 AM CONTRACTING ANALYST Pulse 67 05/11/2021 11:45 AM CONTRACTING ANALYST Temperature - - Respiratory Rate - - Oxygen Saturation - - Inhaled Oxygen Concentration - - Weight - - Height - - Body Mass Index - - Plan of Treatment Health Maintenance Due Date Last Done Comments Dental X-Ray: Panoramic 09/26/2020 09/25/2017 Dental Oral Exam 11/09/2021 05/11/2021, , 05/11/2020, Additional history exists Dental Prophylaxis 11/09/2021 05/11/2021, 0 11/09/2020, 05/11/2020, Additional history exists Dental X-Ray: Bitewings 11/09/2021 05/11/2021 Dental X-Ray: Full Mouth 05/12/2024 05/11/2021, 07/0 11/2017 Procedures Procedure Name Priority Date/Time Associated Diagnosis Comments PROPHYLAXIS - ADULT Routine 05/11/2021 1 2:30 PM CONTRACTING ANALYST PERIODIC ORAL EVALUATION - ESTABLISHED PATIENT Routine 05/11/2021 11:00 AM CONTRACTING ANALYST PANORAMIC RADIOGRAPHIC IMAGE Routine 09/25/2017 2:00 AM CDT INTRAORAL - COMPREHENSIVE SERIES OF RADIOGRAPHIC IMAGES Routine 09/25/2017 2:00 AM CDT from Last 3 Months or Most Recently Relevant to Health Maintenance Insurance [employer]
== END 2024-09-12 14:35 | disposition home or self-care (01) ==
LOC: HO.CT 14:34
PROVIDERS: PCP Nurse Practitioner Family; Visit Provider Nurse Practitioner Family
DX: Z13.89 Encounter for screening for other disorder (principal)

== ENCOUNTER 2024-09-24 14:00 | Outpatient (REF) | payer MEDICARE, SELFPAY ==
--- NOTE | ~2024-09-24 | CT_ITS ---
CLINICAL HISTORY: R31.29 - Other microscopic hematuria Exam: CT urogram without and with IV contrast Comparison: None Findings: Lung bases clear. Small hiatal hernia. 5 mm calyceal calculus in the left kidney midpole, no right nephrolithiasis. No ureteral or bladder calculus. No obstructive uropathy. Left renal cortical cyst 1.2 cm anterior upper pole. Right extrarenal pelvis. Symmetrical contrast excretion of the kidneys, no filling defects in the renal collecting systems, ureters or bladder. No suspicious renal lesion. Ureters and bladder appear normal. Liver, gallbladder, spleen, pancreas are unremarkable. No bile duct dilatation. Pancreatic duct is not dilated. Right adrenal adenoma 1.3 cm 10 HU. Left adrenal nodule 1.3 cm posterior medial limb is indeterminate, 16 HU on precontrast. Hysterectomy, unremarkable vaginal cuff. Left ovarian cyst 2 cm. Unremarkable right adnexa. Diverticulosis of the colon, most notably at the sigmoid, no acute diverticulitis. There is also duodenal diverticulum near pancreatic head. Stomach and small bowel are unremarkable. Mild atherosclerotic disease, nonaneurysmal aorta. No adenopathy, ascites or pneumoperitoneum. Osseous demineralization. Minimal degenerative changes of lumbar spine. Impression: 1. Nonobstructing left nephrolithiasis. 2. Left adrenal nodule is indeterminate, probably lipid poor adenoma. Right adrenal adenoma. Recommend comparison with previous exam. 3. Left ovarian cyst 2 cm, abnormal for late postmenopausal age, recommend comparison with previous exam or further evaluation by pelvic ultrasound. 4. Diverticulosis coli. 5. Small hiatal hernia. 6. Mild atherosclerotic disease. 7. Diffuse osseous demineralization. This document has been electronically signed by: Madalyn Retana MD on 09/25/2024 16:18:16
[2024-09-24 14:40] LABS: Alanine Aminotransferase 34 U/L (0-31); Albumin Level 4.4 g/dL (3.5-5.0); Alkaline Phosphatase 101 U/L (39-117); Anion Gap 11 (12-20); Aspartate Amino Transferase 30 U/L (5-31); Blood Urea Nitrogen 14 mg/dL (9-16); Calcium 9.4 mg/dL (8.4-10.2); Carbon Dioxide 26 mmol/L (22-29); Chloride 108 mmol/L (96-108); Estimated Glomerular Filt Rate > 60; Potassium 4.1 mmol/L (3.3-5.1); Sodium 141 mmol/L (135-145); Total Protein 6.7 g/dL (6.5-8.0)
--- OUTSIDE RECORDS SUMMARY | 2024-09-24 14:51 | XMS_ITS | Clinical Summary ---
Author Organization [facility] Address [address] [place] [address] Care Team Providers Care Hourly Caregiver Name Role Phone Unavailable Primary Care Provider [...] Comments Blood Pressure 147/85 05/11/2021 11:45 AM STORE OPERATIONS ASSOCIATE Pulse 67 05/11/2021 11:45 AM STORE OPERATIONS ASSOCIATE Temperature - - Respiratory Rate - - [...] - ADULT Routine 05/11/2021 1 2:30 PM STORE OPERATIONS ASSOCIATE PERIODIC ORAL EVALUATION - ESTABLISHED PATIENT Routine 05/11/2021 11:00 AM STORE OPERATIONS ASSOCIATE PANORAMIC RADIOGRAPHIC IMAGE Routine 09/25/2017 2:00 AM CDT INTRAORAL - COMPREHENSIVE SERIES OF RADIOGRAPHIC IMAGES Routine 09/25/2017 2:00 AM CDT from Last 3 Months or Most Recently Relevant to Health Maintenance Insurance [employer]
[2024-09-24 15:19] LABS: Appearance Urine Clear; Glucose Urine UA Negative (Negative); PH 6.5 (5.0-9.0); Specific Gravity - Urine 1.010 (1.005-1.025)
[2024-09-24] MEDS: iohexoL 350 MG/ML 100 ML INFUS..BTL IV (15:50)
== END 2024-09-24 14:01 | disposition home or self-care (01) ==
LOC: HO.CT 14:00
PROVIDERS: PCP Nurse Practitioner Family; Visit Provider Nurse Practitioner Family
DX: R31.29 Other microscopic hematuria (principal)
CPT/HCPCS: 36415; 74178; 80053; 81003; 87086; 88112; Q9967

== ENCOUNTER → 2024-09-24 14:03 | Outpatient (BNV) | payer MEDICARE, SELFPAY | PROVIDERS: PCP Nurse Practitioner Family; Visit Provider Radiology Diagnostic Radiology | DX: N20.0 Calculus of kidney (principal); D35.02 Benign neoplasm of left adrenal gland; N83.202 Unspecified ovarian cyst, left side; K57.90 Diverticulosis of intestine, part unspecified, without perforation or abscess without bleeding; K44.9 Diaphragmatic hernia without obstruction or gangrene | CPT/HCPCS: 74178 ==

== ENCOUNTER 2024-10-17 06:59 | Outpatient (AMB) | payer MEDICARE, SELFPAY ==
--- NOTE | 2024-10-17 07:23 | MHC.OFFVIS ---
Vital Signs 10/17/24 07:24 Height 5 ft 2.5 in Weight 167 lb BMI 30.1 BP 136/88 Intake Visit Reasons: New patient ovarian cyst Tester [employer] Required: No Information Interpreted: non-clinical & clinical Accompanied by: Spouse Allergies No Known Allergies Allergy (Verified 10/17/24 07:25) Post menopausal: Yes HPI Comments Details: The patient is referred regarding an ovarian cyst finding on a Uro CT done few weeks ago. No symptoms to be reported 09/26/2019 5-year-old CT: ..... Hysterectomy, unremarkable vaginal cuff. Left ovarian cyst 2 cm. Unremarkable right adnexa. [facility] Medical History Osteoarthritis Surgical History (Updated 10/17/24 @ 07:45 by Teofilo San MD) H/O eye surgery S/P tonsillectomy History of partial hysterectomy S/P knee surgery Family History (Updated 10/17/24 @ 07:28 by Calli Sam CMA) Father HTN (hypertension) Prostate cancer Leukemia Mother Cancer Social History (Updated 10/17/24 @ 07:29 by Calli Sam CMA) Household Members: Spouse Housing: Apartment Alcohol intake: never Patient Tobacco Use Status: Never used Tobacco e-Cigarette/Vaping Use: Never Used Second Hand Smoke Exposure: No service: No Current occupational status: retired Sexually active: Yes Sexual orientation: Straight/Heterosexual Gender identity: Female Cognitive needs: No Hearing needs: No Vision needs: No Female Reproductive History Menstrual Total pregnancies: 2 Full term: 2 Number of Living Children: 2 Date of Mammogram: 08/25/22 Review of Systems Const All systems reviewed & are unremarkable except as noted in HPI and below Card Reports as per HPI and Reports no additional complaints Resp Reports as per HPI and Reports no additional complaints GI Reports as per HPI and Reports no additional complaints Reports as per HPI Physical Exam Vital Signs: Last Vital Signs BP 136/88 10/17/24 07:24 BMI result Body Mass Index 30.1 Const General: cooperative, healthy appearing and comfortable General: Yes bladder normal to palpation External Female Exam: No lesion Speculum Exam - Vagina: normal appearance of the vagina, normal vaginal discharge and not erythematous Speculum Exam - Cervix: Cervix absent Bimanual exam- vagina & uterus: bladder normal to palpation and uterus absent Bimanual Exam- Adnexa, other: Other (No masses detected) Assessment & Plan Assessment & Plan (1) Ovarian cyst: Code(s): N83.209 - Unspecified ovarian cyst, unspecified side Category: Medical Plan: Discussed with the patient the finding on neuro CT will order pelvic ultrasound. Instructions given the patient to schedule an ultrasound and a follow-up appointment within 2 weeks. All questions answered, the patient verbalized understanding Orders: Orders US pelvic and transvaginal Today N83.209 - Unspecified ovarian cyst, unspecified side Coding Level of Care Code New Pt Level 3 (65890) Diagnoses Ovarian cyst N83.209
[2024-10-17 07:24] VITALS: BP 136/88; BMI 30.1
== END 2024-10-17 07:56 | disposition home or self-care (01) ==
PROVIDERS: PCP Nurse Practitioner Family; Visit Provider Obstetrics & Gynecology
DX: N83.209 Unspecified ovarian cyst, unspecified side (principal)
CPT/HCPCS: 99203

== ENCOUNTER → 2024-10-17 06:59 | Outpatient (BNVA) | payer MEDICARE, SELFPAY | PROVIDERS: PCP Nurse Practitioner Family; Visit Provider Obstetrics & Gynecology | DX: N83.202 Unspecified ovarian cyst, left side (principal) | CPT/HCPCS: 99202 ==

== ENCOUNTER 2024-11-28 08:22 | Outpatient (AMB) | payer MEDICARE, SELFPAY ==
--- NOTE | 2024-11-28 08:44 | MHC.OFFVIS ---
Vital Signs 11/28/24 08:46 Height 5 ft 2.5 in Weight 172 lb 6.424 oz BMI 31.0 BP 158/78 H Blood Pressure Location Lt brachial Position Sitting Pulse 82 Pulse Source Pulse Oximeter Pulse Oximetry (%) 97 Oxygen Delivery Method Room Air Intake Visit Reasons: Benign neoplasm of unspecified adrenal gland Intake Note: New patient present today for Benign neoplasm of unspecified adrenal gland. Education Nurse Required: No Accompanied by: Spouse Allergies No Known Allergies Allergy (Verified 11/28/24 09:45) Medication List - Last Reconciled 11/28/24 by Kelly Morales MD alendronate 70 mg PO QWEEK amlodipine-benazepril 5-40 mg 1 cap PO DAILY 90 days cholecalciferol (vitamin D3) 25 mcg PO DAILY famotidine 40 mg PO DAILY levothyroxine 75 mcg PO DAILY 90 days metoprolol succinate ER 12.5 mg (1/2 x 25 mg) PO DAILY rosuvastatin 10 mg PO DAILY HPI Comments Details: 79-year-old female coming in today for initial evaluation of bilateral adrenal nodules. Here today with [place] CT urogram done for hematuria, I reviewed myself 09/25/2024 which showed a right 1.3 cm adrenal gland adenoma with 10 Hounsfield units, left adrenal gland nodule 1.3 cm posterior medial limbus indeterminate with 16 Hounsfield units on precontrast. Symptoms: Pt denies any weight gain, hirsutism,severe acne ,headaches , , -denies any hx of proximal muscle weakness but she has trouble getting up due to bad arthritis in knees, - reports easy bruisability - no abdominal striae,no headache,diaphoresis -does have HTN on amlodpine -benazpiril combo and metoprolol, normally well controlled -Denies any polyuria or polydipsia,no history of glucose intolerance,no abdominal pain ,skin infection or hyperpigmentation. -no recent vertebra or fragility fracture -No truncal obesity,facial plethora or recent mood change. No hx of depression. - no episodic palpitaions, pallor, abdominal pain, diaphoresis . Never smoker Physical exam General: sitting comfortably in no acute distress HEENT: normocephalic/atraumatic, Neck: supple, Cardiac: normal heart sounds Pulm: normal breath sounds B/L, no added breath sounds Abd: not distended, no purple striae ? Laboratory Tests 08/06/24 09/24/24 10:06 14:18 Potassium 4.1 Creatinine 0.86 Estimated GFR > 60 TSH 1.05 Exam: CT urogram without and with IV contrast 09/25/2024 Comparison: None Findings: Lung bases clear. Small hiatal hernia. 5 mm calyceal calculus in the left kidney midpole, no right nephrolithiasis. No ureteral or bladder calculus. No obstructive uropathy. Left renal cortical cyst 1.2 cm anterior upper pole. Right extrarenal pelvis. Symmetrical contrast excretion of the kidneys, no filling defects in the renal collecting systems, ureters or bladder. No suspicious renal lesion. Ureters and bladder appear normal. Liver, gallbladder, spleen, pancreas are unremarkable. No bile duct dilatation. Pancreatic duct is not dilated. Right adrenal adenoma 1.3 cm 10 HU. Left adrenal nodule 1.3 cm posterior medial limb is indeterminate, 16 HU on precontrast. Hysterectomy, unremarkable vaginal cuff. Left ovarian cyst 2 cm. Unremarkable right adnexa. Diverticulosis of the colon, most notably at the sigmoid, no acute diverticulitis. There is also duodenal diverticulum near pancreatic head. Stomach and small bowel are unremarkable. Mild atherosclerotic disease, nonaneurysmal aorta. No adenopathy, ascites or pneumoperitoneum. Osseous demineralization. Minimal degenerative changes of lumbar spine. Impression: 1. Nonobstructing left nephrolithiasis. 2. Left adrenal nodule is indeterminate, probably lipid poor adenoma. Right adrenal adenoma. Recommend comparison with previous exam. 3. Left ovarian cyst 2 cm, abnormal for late postmenopausal age, recommend comparison with previous exam or further evaluation by pelvic ultrasound. 4. Diverticulosis coli. 5. Small hiatal hernia. 6. Mild atherosclerotic disease. 7. Diffuse osseous demineralization. This document has been electronically signed by: Madalyn Retana MD on 09/25/2024 16:18:16 [facility] Medical History (Updated 11/28/24 @ 09:40 by Kelly Morales MD) Adrenal nodule Osteoarthritis Surgical History (Updated 11/28/24 @ 08:52 by JESSENIA Gómez) History of cataract surgery H/O eye surgery S/P tonsillectomy History of partial hysterectomy S/P knee surgery Family History Father HTN (hypertension) Prostate cancer Leukemia Mother Cancer Social History Household Members: Spouse Housing: Apartment Alcohol intake: never Patient Tobacco Use Status: Never used Tobacco e-Cigarette/Vaping Use: Never Used Second Hand Smoke Exposure: No service: No Current occupational status: retired Sexual orientation: Straight/Heterosexual Gender identity: Female Cognitive needs: No Hearing needs: No Vision needs: No Physical Exam Vital Signs: Last Vital Signs Pulse 82 11/28/24 08:46 BP 158/78 H 11/28/24 08:46 Pulse Ox 97 11/28/24 08:46 Oxygen Delivery Method Room Air 11/28/24 08:46 BMI result Body Mass Index 31.0 Assessment & Plan Assessment & Plan (1) Adrenal nodule: Code(s): E27.9 - Disorder of adrenal gland, unspecified Category: Medical Plan: 79-year-old female here today for initial evaluation of bilateral adrenal gland nodules. CT urogram done for hematuria, I reviewed myself 09/25/2024 which showed a right 1.3 cm adrenal gland adenoma with 10 Hounsfield units, left adrenal gland nodule 1.3 cm posterior medial limbus indeterminate with 16 Hounsfield units on precontrast. Our first concern is to be sure that this is not an adrenal cortical carcinoma. ?Fortunately adrenal cortical carcinomas are exceedingly rare. ?However they do carry with them a very poor prognosis.?Given clinical history with no deterioration in overall health; I have low suspicion for adrenocortical carcinoma to start with. ?Our next step will be to repeat the imaging of his adrenal gland with?adrenal washout protocol to comment on Hounsfield units and washout. ?? Another concern of adrenal masses is that they might be metastatic disease from another primary malignancy. ?This seems unlikely in his case. is a lifelong non-smoker. ?A renal cancer which can metastasize to the adrenal glands probably would have been identified on his initial imaging study. ?Usually metastatic disease to the adrenal glands goes to both adrenal glands. ?Finally there is no evidence of breast cancer which?may?metastasize to the adrenal glands?as well. ? Most adrenal masses are noncancerous or benign adrenal adenomas. ?However they can occasionally be functional and the hormones that are produced can cause clinical problems.?? has not been screened for any hormonal excess; although low clinical suspicion for pheochromocytoma; given the adrenal adenoma in question is greater than 1 cm ; I will err on the side of caution and screen with plasma free metanephrines with blood work today. ? She does have hypertension but no history of hypokalemia however we will check aldosterone and plasma renin activity testing . ? We will check a 1 mg overnight dexamethasone suppression test which she will prescribed .?However he has no clinical features of Bramwell syndrome. No history of diabetes mellitus, blood pressure is usually well-controlled, no history of fragility fracture. No facial plethora, no abdominal striae, no skin thinning, does have some easy bruising, no proximal muscle weakness. ? The greatest likelihood is that this will be a nonfunctional benign adrenal adenoma that does not need to be removed. ?However we want to be careful that we have excluded all the other possibilities?first.? Plan: -ordered CT adrenal gland -ordered baseline ACTH, cortisol, DHEA-S, plasma metanephrine normetanephrine levels, BMP, plasma renin activity and aldosterone levels -ordered dexamethasone suppression test -follow up in 4-6 weeks to discuss results Plan I spent 45 minutes in reviewing the record, seeing the patient and documenting in the medical record. Orders: Orders Adrenocorticotropic Hormone 12/02/24 D35.00 - Benign neoplasm of unspecified adrenal gland Renin 12/02/24 D35.00 - Benign neoplasm of unspecified adrenal gland Basic Metabolic Panel 12/02/24 D35.00 - Benign neoplasm of unspecified adrenal gland Cortisol Random 12/06/24 D35.00 - Benign neoplasm of unspecified adrenal gland CT adrenal wo/w IV con Today D35.00 - Benign neoplasm of unspecified adrenal gland Cortisol Random 12/02/24 D35.00 - Benign neoplasm of unspecified adrenal gland DHEA Sulfate 12/02/24 D35.00 - Benign neoplasm of unspecified adrenal gland Aldosterone 12/02/24 D35.00 - Benign neoplasm of unspecified adrenal gland Metanephrines, Plasma 12/02/24 D35.00 - Benign neoplasm of unspecified adrenal gland Adrenocorticotropic Hormone 12/06/24 D35.00 - Benign neoplasm of unspecified adrenal gland Dexamethasone 12/06/24 D35.00 - Benign neoplasm of unspecified adrenal gland Medications: New dexamethasone Take at 11 pm at night and do blood work 8 AM next day 1 mg PO ONCE 1 tab 0RF Patient Instructions: Do CT scan, someone will call you to schedule this Do a first set of baseline blood work at 08:00 Do a 2nd set of blood work call dexamethasone suppression test Dexamethasone suppression test I would like you to do a dexamethasone suppression test to rule out Cushings syndrome. You will take a 1 mg pill of dexamethasone at 11 PM and then have a blood draw for cortisol at 8AM the next morning. It is important to make sure you take the dexamethasone at 11 PM and have the blood test as close to 8AM as possible. Please make sure all testing is done prior to her next follow up. Results will be discussed at follow up. Coding Level of Care Code New Pt Level 4 (15887) Diagnoses Adrenal nodule E27.9 Time Spent (min) 45
[2024-11-28 08:46] VITALS: BP 158/78; PULSE 82; O2SAT 97; BMI 31.0
--- OUTSIDE RECORDS SUMMARY | 2024-11-28 09:22 | XMS_ITS | Clinical Summary ---
Author Organization [facility] Health Address [address] [place] [address] Care Team Providers Care Energy Consultant Name Role Phone Unavailable Primary Care Provider [...] Comments Blood Pressure 147/85 05/11/2021 11:45 AM HUMAN RESOURCES OPERATIONS MANAGER Pulse 67 05/11/2021 11:45 AM HUMAN RESOURCES OPERATIONS MANAGER Temperature - - Respiratory Rate - - [...] - ADULT Routine 05/11/2021 1 2:30 PM HUMAN RESOURCES OPERATIONS MANAGER PERIODIC ORAL EVALUATION - ESTABLISHED PATIENT Routine 05/11/2021 11:00 AM HUMAN RESOURCES OPERATIONS MANAGER PANORAMIC RADIOGRAPHIC IMAGE Routine 09/25/2017 2:00 AM CDT INTRAORAL - COMPREHENSIVE SERIES OF RADIOGRAPHIC IMAGES Routine 09/25/2017 2:00 AM CDT from Last 3 Months or Most Recently Relevant to Health Maintenance Insurance [employer]
--- OUTSIDE RECORDS SUMMARY | 2024-11-28 09:22 | XMS_ITS | Encounter Summary ---
Author Organization [facility] Address [address] [place] [address] Care Team Providers Care Control Tower Radio Operator Name Role Phone Unavailable Primary Care Provider Unavailabl e Prior Encounters Date Type Department Care Team Description 05/11/2021 12:30 PM ORTHOTIC AIDE Office Visit [facility] [id number], [facility] [address] [place] [address] Hailey Herrera, [facility] 05/11/2021 Orders Only [facility] [id number], [facility] [address] [place] [address] Domenic Bauer 05/11/2021 Travel 05/11/2021 11:00 AM ORTHOTIC AIDE Office Visit [facility] [id number], [facility] [address] [place] [address] Domenic Bauer 04/08/2019 Converted CPS Chart Documents [facility] [id number], [facility] [address] [place] [address] <No scans attached> 04/08/2019 Converted 13x Documents [facility] [address] , [facility] [address] [place] [address] <No scans attached> 04/08/2019 Converted 13x Documents [facility] [id number], [facility] [address] [place] [address] <No scans attached> Last Filed Vital Signs Vital Sign Reading Time Taken Comments Blood Pressure 147/85 05/11/2021 11:45 AM ORTHOTIC AIDE Pulse 67 05/11/2021 11:45 AM ORTHOTIC AIDE Temperature - - Respiratory Rate - - Oxygen Saturation - - Inhaled Oxygen Concentration - - Weight - - Height - - Body Mass Index - - Plan of Treatment Not on file Procedures Procedure Name Priority Date/Time Associated Diagnosis Comments ORAL HYGIENE INSTRUCTIONS Routine 2021 12:30 PM ORTHOTIC AIDE SHANE DECON Routine 05/11/2021 12:30 PM ORTHOTIC AIDE TOPICAL APPLICATION OF FLUORIDE VARNISH Routine 05/11/2021 12:30 PM ORTHOTIC AIDE PROPHYLAXIS - ADULT Routine 05/11/2021 1 2:30 PM ORTHOTIC AIDE LR ANTIBACT IRR/QUAD Routine 05/11/2021 12:30 PM ORTHOTIC AIDE LL ANTIBACT IRR/QUAD Routine 05/11/2021 12:30 PM ORTHOTIC AIDE UL ANTIBACT IRR/QUAD Routine 05/11/2021 12:30 PM ORTHOTIC AIDE UR ANTIBACT IRR/QUAD Routine 05/11/2021 12:30 PM ORTHOTIC AIDE INTRAORAL PHOTO Routine 05/11/2021 11:00 AM ORTHOTIC AIDE INTRAORAL PHOTO Routine 05/11/2021 11:00 AM ORTHOTIC AIDE INTRAORAL PHOTO Routine 05/11/2021 11:00 AM ORTHOTIC AIDE INTRAORAL PHOTO Routine 05/11/2021 11:00 AM ORTHOTIC AIDE BITEWINGS - FOUR RADIOGRAPHIC IMAGES Routine 05/11/2021 11:00 AM ORTHOTIC AIDE ADDITIONAL X-RAY Routine 05/11/2021 11:0 0 AM ORTHOTIC AIDE ADDITIONAL X-RAY Routine 05/11/2021 11:0 0 AM ORTHOTIC AIDE ADDITIONAL X-RAY Routine 05/11/2021 11:0 0 AM ORTHOTIC AIDE ADDITIONAL X-RAY Routine 05/11/2021 11:0 0 AM ORTHOTIC AIDE ADDITIONAL X-RAY Routine 05/11/2021 11:0 0 AM ORTHOTIC AIDE SINGLE X-RAY Routine 05/11/2021 11:00 AM ORTHOTIC AIDE PERIODIC ORAL EVALUATION - ESTABLISHED PATIENT Routine 05/11/2021 11:00 AM ORTHOTIC AIDE PERIODIC ORAL EVALUATION - ESTABLISHED PATIENT Routine [...] - ESTABLISHED PATIENT Routine 05/11/2020 2:00 AM ORTHOTIC AIDE ORAL HYGIENE INSTRUCTIONS Routine 2020 2:00 AM ORTHOTIC AIDE TOPICAL APPLICATION OF FLUORIDE VARNISH Routine 05/11/2020 2:00 AM ORTHOTIC AIDE PROPHYLAXIS - ADULT Routine 05/11/2020 2 :00 AM ORTHOTIC AIDE 30 CEMENT CROWN Routine 04/13/2020 2:00 AM ORTHOTIC AIDE SINGLE X-RAY Routine 04/13/2020 2:00 AM ORTHOTIC AIDE 30 TREATMENT OF ROOT CANAL OBSTRUCTION; NON-SURGICAL ACCESS Routine 03/26/2020 2:00 AM ORTHOTIC AIDE LIMITED ORAL EVALUATION - PROBLEM FOCUSED Routine 03/26/2020 2:00 AM ORTHOTIC AIDE 30 ENDODONTIC THERAPY, MOLAR TOOTH (EXCLUDING FINAL CONFUCIANIST) Routine 03/26/2020 2:00 AM ORTHOTIC AIDE 30 PULP VITALITY TESTS Routine 2:00 AM ORTHOTIC AIDE 30 CORE BUILDUP, INCLUDING ANY PINS WHEN REQUIRED Routine 03/26/2020 2:00 AM ORTHOTIC AIDE 30 CROWN PORC POST Routine 03/26/2020 2: 00 AM ORTHOTIC AIDE CANCELLED APPOINTMENT Routine 03/19/2020 2:00 AM ORTHOTIC AIDE ADDITIONAL X-RAY Routine 03/18/2020 2:00 AM ORTHOTIC AIDE SINGLE X-RAY Routine 03/18/2020 2:00 AM ORTHOTIC AIDE INTRAORAL PHOTO Routine 03/18/2020 2:00 AM ORTHOTIC AIDE PERIODIC ORAL EVALUATION - ESTABLISHED PATIENT Routine [...] - ESTABLISHED PATIENT Routine 04/29/2019 2:00 AM ORTHOTIC AIDE ORAL HYGIENE INSTRUCTIONS Routine 2019 2:00 AM ORTHOTIC AIDE 15 MB ARESTIN 2 SITE/TTH Routine 020 2:00 AM ORTHOTIC AIDE TOPICAL APPLICATION OF FLUORIDE VARNISH Routine 04/29/2019 2:00 AM ORTHOTIC AIDE PROPHYLAXIS - ADULT Routine 04/29/2019 2 :00 AM ORTHOTIC AIDE ORAL HYGIENE INSTRUCTIONS Routine 2018 2:00 AM [...] - ESTABLISHED PATIENT Routine 04/02/2018 2:00 AM ORTHOTIC AIDE ORAL HYGIENE INSTRUCTIONS Routine 2018 2:00 AM ORTHOTIC AIDE 1 FM IRR W/GROSS SCALE Routine 9 2:00 AM ORTHOTIC AIDE TOPICAL APPLICATION OF FLUORIDE VARNISH Routine 04/02/2018 2:00 AM ORTHOTIC AIDE PROPHYLAXIS - ADULT Routine 04/02/2018 2 :00 AM ORTHOTIC AIDE BITEWINGS - FOUR RADIOGRAPHIC IMAGES Routine 04/02/2018 2:00 AM ORTHOTIC AIDE ADDITIONAL X-RAY Routine 04/02/2018 2:00 AM ORTHOTIC AIDE ADDITIONAL X-RAY Routine 04/02/2018 2:00 AM ORTHOTIC AIDE ADDITIONAL X-RAY Routine 04/02/2018 2:00 AM ORTHOTIC AIDE ADDITIONAL X-RAY Routine 04/02/2018 2:00 AM ORTHOTIC AIDE ADDITIONAL X-RAY Routine 04/02/2018 2:00 AM ORTHOTIC AIDE SINGLE X-RAY Routine 04/02/2018 2:00 AM ORTHOTIC AIDE 19 O AMALGAM 1 SURFACE Routine 8 [...]
== END 2024-11-28 09:38 | disposition home or self-care (01) ==
LOC: HO.ENCR 08:22
PROVIDERS: PCP Nurse Practitioner Family; Visit Provider Student in an Organized Health Care Education/Training Program
DX: E27.9 Disorder of adrenal gland, unspecified (principal)
CPT/HCPCS: 99204

== ENCOUNTER 2024-11-28 09:44 | Outpatient (AMB) | payer MEDICARE, SELFPAY ==
--- NOTE | 2024-11-28 09:45 | A.OFFVIS_ITS ---
Intake Visit Reasons: microscopic hematuria Intake Note: patient presents today for: new pt microscopic hematuria urology medications: none blood thinners: none Service Mechanic Required: No Accompanied by: Spouse Allergies No Known Allergies Allergy (Verified 11/28/24 09:45) HPI Comments Details: Ayse Reece is a very pleasant female. She is a patient of Dr. Borrego. She is seen for the following urologic conditions - microscopic hematuria Microscopic hematuria Microscopic hematuria was diagnosed during - PCP evaluation They are here for the - initial evaluation Since the last visit the patient has - does not test positive for microscopic hematuria in office today Relevant medical history - anticoagulation therapy - no - kidney stones yes -small stone found on CT - prior stone passage in 2007 Prior tobacco use - no Workplace exposures - no Associated symptoms at initial evaluation include - none Radiographic imaging: - CT completed Therapeutic plan - continue to follow with PCP [facility] Medical History (Updated 11/28/24 @ 09:40 by Kelly Morales MD) Adrenal nodule Osteoarthritis Surgical History (Updated 11/28/24 @ 08:52 by JESSENIA Gómez) History of cataract surgery H/O eye surgery S/P tonsillectomy History of partial hysterectomy S/P knee surgery Family History Father HTN (hypertension) Prostate cancer Leukemia Mother Cancer Social History Household Members: Spouse Housing: Apartment Alcohol intake: never Patient Tobacco Use Status: Never used Tobacco e-Cigarette/Vaping Use: Never Used Second Hand Smoke Exposure: No service: No Current occupational status: retired Sexual orientation: Straight/Heterosexual Gender identity: Female Cognitive needs: No Hearing needs: No Vision needs: No Review of Systems Const Denies chills and Denies fever(s) Card Reports no additional complaints and Denies syncope Resp Denies cough GI Denies abdominal pain and Denies heartburn Reports as per HPI and Denies change in libido Neuro Denies syncope Psych Denies change in libido Endo Denies change in libido Physical Exam Const General: cooperative, healthy appearing, comfortable and no acute distress Orientation/consciousness: patient oriented x3 HEENT Face and sinus: Yes normal facial exam Mouth: moist mucous membranes Neck Neck: Yes normal visual inspection, Yes full ROM and Yes trachea midline Chest Chest palpation & inspection: normal inspection of the chest Resp Effort & Inspection: normal respiratory effort, able to speak in complete sentences and no respiratory distress GI Inspection: Yes normal to inspection Back/Spine/Pelvis Cervical Spine: normal cervical lordosis Thoracic/Lumbar Spine: thoracic and lumbar spine normal to inspection Skin General skin exam: no rashes or lesions noted Neuro General: patient oriented x3, gait normal, tone normal and moves all extremities Extrem General: Yes normal to inspection and Yes capillary refill normal Assessment & Plan Assessment & Plan (1) Microscopic hematuria: Code(s): R31.29 - Other microscopic hematuria Category: Medical Plan PCP would re-evaluate if has 2+ blood on UA greater than 80 RBC. Patient Instructions: This note is constructed using voice recognition software. While every effort has been made to ensure accuracy pearl restorer errors may have been included. Imaging studies, laboratory and physical exam results were discussed and reviewed in detail. No major barriers to patient understanding were identified. An opportunity to ask questions regarding the treatment plan was provided. All questions were answered. The patient expressed understanding and agreement with the above treatment plan. The patient is aware they should contact our office by phone for worsening of their current condition or the appearance of new urologic symptoms. Compliance is encouraged with any medications and followup testing that is ordered. It is a privilege to participate in the urologic care of your patient. If you have any questions or concerns regarding treatment for the above conditions, or other urologic issues, please do not hesitate to contact me. The office telephone contact is [phone]. Sincerely, Dr Cayden Ovalle MD, [facility] - Urology Compassionate Specialist Care for the Genitourinary System Coding Level of Care Code New Pt Level 3 (06289) Diagnoses Microscopic hematuria R31.29
== END 2024-11-28 10:09 | disposition home or self-care (01) ==
LOC: HO.HUSH 09:44
PROVIDERS: PCP Nurse Practitioner Family; Visit Provider Urology
DX: R31.29 Other microscopic hematuria (principal); Z13.9 Encounter for screening, unspecified
CPT/HCPCS: 99203

== ENCOUNTER 2024-11-28 13:03 | Outpatient (REF) | payer MEDICARE, SELFPAY ==
--- NOTE | ~2024-11-28 | US_ITS ---
CLINICAL HISTORY: N83.209 - Unspecified ovarian cyst, unspecified side US pelvis transvaginal Comparison: None provided Findings: Transvaginal scanning performed. No abnormal findings in the area of the vaginal cuff Right ovary not visualized. Left adnexal finding, possible ovary 3.0 x 2.0 x 1.5 cm. No definite abnormal pelvic mass No free fluid. IMPRESSION: 1. Limited exam with no definite adnexal mass. This document has been electronically signed by: Denver Moreno MD on 11/29/2024 09:03:09
== END 2024-11-28 13:04 | disposition home or self-care (01) ==
LOC: HO.US 13:03
PROVIDERS: PCP Nurse Practitioner Family; Visit Provider Obstetrics & Gynecology
DX: N83.209 Unspecified ovarian cyst, unspecified side (principal); R31.29 Other microscopic hematuria; E27.9 Disorder of adrenal gland, unspecified
CPT/HCPCS: 76830; 76856; 81003; 99202

== ENCOUNTER → 2024-11-28 13:04 | Outpatient (BNV) | payer MEDICARE, SELFPAY | PROVIDERS: PCP Nurse Practitioner Family; Visit Provider Specialist | DX: N83.209 Unspecified ovarian cyst, unspecified side (principal) | CPT/HCPCS: 76830; 76856 ==

== ENCOUNTER 2024-12-02 07:36 | Outpatient (REF) | payer MEDICARE, SELFPAY ==
--- OUTSIDE RECORDS SUMMARY | 2024-12-02 07:40 | XMS_ITS | Encounter Summary ---
Author Organization [facility] Address [address] [place] [address] Care Team Providers Care Lithographic Etcher Name Role Phone Unavailable Primary Care Provider Unavailabl e Prior Encounters Date Type Department Care Team Description 05/11/2021 12:30 PM HEEL SEAT TRIMMER Office Visit [facility] [address], [facility] [address] [place] [address] Hailey Herrera, [facility] 05/11/2021 Orders Only [facility] [address] [address], [facility] [address] [place] [address] Domenic Bauer 05/11/2021 Travel 05/11/2021 11:00 AM HEEL SEAT TRIMMER Office Visit [facility] [address], [facility] [address] [place] [address] Domenic Bauer 04/08/2019 Converted CPS Chart Documents [facility] [address], [facility] [address] [place] [address] <No scans attached> 04/08/2019 Converted 13x Documents [facility] [address] , [facility] [address] [place] [address] <No scans attached> 04/08/2019 Converted 13x Documents [facility] [address], [facility] [address] [place] [address] <No scans attached> Last Filed Vital Signs Vital Sign Reading Time Taken Comments Blood Pressure 147/85 05/11/2021 11:45 AM HEEL SEAT TRIMMER Pulse 67 05/11/2021 11:45 AM HEEL SEAT TRIMMER Temperature - - Respiratory Rate - - Oxygen Saturation - - Inhaled Oxygen Concentration - - Weight - - Height - - Body Mass Index - - Plan of Treatment Not on file Procedures Procedure Name Priority Date/Time Associated Diagnosis Comments ORAL HYGIENE INSTRUCTIONS Routine 2021 12:30 PM HEEL SEAT TRIMMER SHANE DECON Routine 05/11/2021 12:30 PM HEEL SEAT TRIMMER TOPICAL APPLICATION OF FLUORIDE VARNISH Routine 05/11/2021 12:30 PM HEEL SEAT TRIMMER PROPHYLAXIS - ADULT Routine 05/11/2021 1 2:30 PM HEEL SEAT TRIMMER LR ANTIBACT IRR/QUAD Routine 05/11/2021 12:30 PM HEEL SEAT TRIMMER LL ANTIBACT IRR/QUAD Routine 05/11/2021 12:30 PM HEEL SEAT TRIMMER UL ANTIBACT IRR/QUAD Routine 05/11/2021 12:30 PM HEEL SEAT TRIMMER UR ANTIBACT IRR/QUAD Routine 05/11/2021 12:30 PM HEEL SEAT TRIMMER INTRAORAL PHOTO Routine 05/11/2021 11:00 AM HEEL SEAT TRIMMER INTRAORAL PHOTO Routine 05/11/2021 11:00 AM HEEL SEAT TRIMMER INTRAORAL PHOTO Routine 05/11/2021 11:00 AM HEEL SEAT TRIMMER INTRAORAL PHOTO Routine 05/11/2021 11:00 AM HEEL SEAT TRIMMER BITEWINGS - FOUR RADIOGRAPHIC IMAGES Routine 05/11/2021 11:00 AM HEEL SEAT TRIMMER ADDITIONAL X-RAY Routine 05/11/2021 11:0 0 AM HEEL SEAT TRIMMER ADDITIONAL X-RAY Routine 05/11/2021 11:0 0 AM HEEL SEAT TRIMMER ADDITIONAL X-RAY Routine 05/11/2021 11:0 0 AM HEEL SEAT TRIMMER ADDITIONAL X-RAY Routine 05/11/2021 11:0 0 AM HEEL SEAT TRIMMER ADDITIONAL X-RAY Routine 05/11/2021 11:0 0 AM HEEL SEAT TRIMMER SINGLE X-RAY Routine 05/11/2021 11:00 AM HEEL SEAT TRIMMER PERIODIC ORAL EVALUATION - ESTABLISHED PATIENT Routine 05/11/2021 11:00 AM HEEL SEAT TRIMMER PERIODIC ORAL EVALUATION - ESTABLISHED PATIENT Routine [...] - ESTABLISHED PATIENT Routine 05/11/2020 2:00 AM HEEL SEAT TRIMMER ORAL HYGIENE INSTRUCTIONS Routine 2020 2:00 AM HEEL SEAT TRIMMER TOPICAL APPLICATION OF FLUORIDE VARNISH Routine 05/11/2020 2:00 AM HEEL SEAT TRIMMER PROPHYLAXIS - ADULT Routine 05/11/2020 2 :00 AM HEEL SEAT TRIMMER 30 CEMENT CROWN Routine 04/13/2020 2:00 AM HEEL SEAT TRIMMER SINGLE X-RAY Routine 04/13/2020 2:00 AM HEEL SEAT TRIMMER 30 TREATMENT OF ROOT CANAL OBSTRUCTION; NON-SURGICAL ACCESS Routine 03/26/2020 2:00 AM HEEL SEAT TRIMMER LIMITED ORAL EVALUATION - PROBLEM FOCUSED Routine 03/26/2020 2:00 AM HEEL SEAT TRIMMER 30 ENDODONTIC THERAPY, MOLAR TOOTH (EXCLUDING FINAL NONDENOMINATIONAL) Routine 03/26/2020 2:00 AM HEEL SEAT TRIMMER 30 PULP VITALITY TESTS Routine 2:00 AM HEEL SEAT TRIMMER 30 CORE BUILDUP, INCLUDING ANY PINS WHEN REQUIRED Routine 03/26/2020 2:00 AM HEEL SEAT TRIMMER 30 CROWN PORC POST Routine 03/26/2020 2: 00 AM HEEL SEAT TRIMMER CANCELLED APPOINTMENT Routine 03/19/2020 2:00 AM HEEL SEAT TRIMMER ADDITIONAL X-RAY Routine 03/18/2020 2:00 AM HEEL SEAT TRIMMER SINGLE X-RAY Routine 03/18/2020 2:00 AM HEEL SEAT TRIMMER INTRAORAL PHOTO Routine 03/18/2020 2:00 AM HEEL SEAT TRIMMER PERIODIC ORAL EVALUATION - ESTABLISHED PATIENT Routine [...] - ESTABLISHED PATIENT Routine 04/29/2019 2:00 AM HEEL SEAT TRIMMER ORAL HYGIENE INSTRUCTIONS Routine 2019 2:00 AM HEEL SEAT TRIMMER 15 MB ARESTIN 2 SITE/TTH Routine 020 2:00 AM HEEL SEAT TRIMMER TOPICAL APPLICATION OF FLUORIDE VARNISH Routine 04/29/2019 2:00 AM HEEL SEAT TRIMMER PROPHYLAXIS - ADULT Routine 04/29/2019 2 :00 AM HEEL SEAT TRIMMER ORAL HYGIENE INSTRUCTIONS Routine 2018 2:00 AM [...] - ESTABLISHED PATIENT Routine 04/02/2018 2:00 AM HEEL SEAT TRIMMER ORAL HYGIENE INSTRUCTIONS Routine 2018 2:00 AM HEEL SEAT TRIMMER 1 FM IRR W/GROSS SCALE Routine 9 2:00 AM HEEL SEAT TRIMMER TOPICAL APPLICATION OF FLUORIDE VARNISH Routine 04/02/2018 2:00 AM HEEL SEAT TRIMMER PROPHYLAXIS - ADULT Routine 04/02/2018 2 :00 AM HEEL SEAT TRIMMER BITEWINGS - FOUR RADIOGRAPHIC IMAGES Routine 04/02/2018 2:00 AM HEEL SEAT TRIMMER ADDITIONAL X-RAY Routine 04/02/2018 2:00 AM HEEL SEAT TRIMMER ADDITIONAL X-RAY Routine 04/02/2018 2:00 AM HEEL SEAT TRIMMER ADDITIONAL X-RAY Routine 04/02/2018 2:00 AM HEEL SEAT TRIMMER ADDITIONAL X-RAY Routine 04/02/2018 2:00 AM HEEL SEAT TRIMMER ADDITIONAL X-RAY Routine 04/02/2018 2:00 AM HEEL SEAT TRIMMER SINGLE X-RAY Routine 04/02/2018 2:00 AM HEEL SEAT TRIMMER 19 O AMALGAM 1 SURFACE Routine 8 [...]
--- OUTSIDE RECORDS SUMMARY | 2024-12-02 07:40 | XMS_ITS | Clinical Summary ---
Author Organization [facility] Health Address [address] [place] [address] Care Team Providers Care Boiler Tube Blower Name Role Phone Unavailable Primary Care Provider [...] Comments Blood Pressure 147/85 05/11/2021 11:45 AM ICT CUSTOMER SUPPORT OFFICER Pulse 67 05/11/2021 11:45 AM ICT CUSTOMER SUPPORT OFFICER Temperature - - Respiratory Rate - - [...] - ADULT Routine 05/11/2021 1 2:30 PM ICT CUSTOMER SUPPORT OFFICER PERIODIC ORAL EVALUATION - ESTABLISHED PATIENT Routine 05/11/2021 11:00 AM ICT CUSTOMER SUPPORT OFFICER PANORAMIC RADIOGRAPHIC IMAGE Routine 09/25/2017 2:00 AM CDT INTRAORAL - COMPREHENSIVE SERIES OF RADIOGRAPHIC IMAGES Routine 09/25/2017 2:00 AM CDT from Last 3 Months or Most Recently Relevant to Health Maintenance Insurance [employer] PPO
[2024-12-02 08:54] LABS: Anion Gap 10 (12-20); Blood Urea Nitrogen 12 mg/dL (9-16); Calcium 9.4 mg/dL (8.4-10.2); Carbon Dioxide 27 mmol/L (22-29); Chloride 109 mmol/L (96-108); Estimated Glomerular Filt Rate > 60; Potassium 4.2 mmol/L (3.3-5.1); Sodium 142 mmol/L (135-145)
[2024-12-06 06:03] LABS: Metanephrine, Free 29 pg/mL (<=57); Normetanephrines, Free 108 pg/mL (<=148); Total Metanephrine, Free 137 pg/mL (<=205)
== END 2024-12-02 07:37 | disposition home or self-care (01) ==
LOC: HO.LAB 07:36
PROVIDERS: Visit Provider Student in an Organized Health Care Education/Training Program
DX: D35.00 Benign neoplasm of unspecified adrenal gland (principal)
CPT/HCPCS: 36415; 80048; 82024; 82088; 82533; 82627; 83835; 84244

== ENCOUNTER 2024-12-03 10:30 | Outpatient (REF) | payer MEDICARE, SELFPAY ==
--- NOTE | ~2024-12-03 | MM_ITS ---
EXAMINATION: MM SCREENING DIGITAL BREAST TOMOSYNTHESIS, BILATERAL CLINICAL INFORMATION: Screening. Asymptomatic. COMPARISON: Mammography: Comparison is made with available priors TECHNIQUE: Digital breast mammography with tomosynthesis is performed in both the craniocaudal and mediolateral oblique views along with computer-aided detection (CAD). FINDINGS: The breasts are heterogeneously dense, which may obscure small masses (ACR BI-RADS breast composition Category c). There are no significant masses, abnormal calcifications, or other abnormalities. MM/MM tomosynthesis screening BI IMPRESSION: No mammographic evidence of malignancy. ASSESSMENT: BI-RADS BI-RADS 1 - Negative RECOMMENDATION: Routine annual mammography screening. 1 year F/U This examination should not preclude the clinical evaluation of a suspicious palpable abnormality. This patient's information was entered into a reminder system with a target due date for their next mammogram. Electronically signed by: Susan Pang DO 12/06/2024 01:13 PM EDT
--- OUTSIDE RECORDS SUMMARY | 2024-12-03 13:45 | XMS_ITS | Clinical Summary ---
Author Organization [facility] Health Address [address] [place] [address] Care Team Providers Care Novelty Balloon Assembler And Packer Name Role Phone Unavailable Primary Care Provider [...] Comments Blood Pressure 147/85 05/11/2021 11:45 AM RESEARCH PROJECT MANAGER Pulse 67 05/11/2021 11:45 AM RESEARCH PROJECT MANAGER Temperature - - Respiratory Rate - [...] - ADULT Routine 05/11/2021 1 2:30 PM RESEARCH PROJECT MANAGER PERIODIC ORAL EVALUATION - ESTABLISHED PATIENT Routine 05/11/2021 11:00 AM RESEARCH PROJECT MANAGER PANORAMIC RADIOGRAPHIC IMAGE Routine 09/25/2017 2:00 AM CDT INTRAORAL - COMPREHENSIVE SERIES OF RADIOGRAPHIC IMAGES Routine 09/25/2017 2:00 AM CDT from Last 3 Months or Most Recently Relevant to Health Maintenance Insurance [employer]ENT[employer] PPO
--- OUTSIDE RECORDS SUMMARY | 2024-12-03 13:45 | XMS_ITS | Encounter Summary ---
Author Organization [facility] Address [address] [place] [address] Care Team Providers Care Ct Tech Name Role Phone Unavailable Primary Care Provider Unavailabl e Prior Encounters Date Type Department Care Team Description 05/11/2021 12:30 PM LGSW Office Visit [facility] [address] [address], [facility] [address] [place] [address] Hailey Herrera, [facility] 05/11/2021 Orders Only [facility] [address] [address], [facility] [address] [place] [address] Domenic Bauer 05/11/2021 Travel 05/11/2021 11:00 AM LGSW Office Visit [facility] [address] [address], [facility] [address] [place] [address] Domenic Bauer 04/08/2019 Converted CPS Chart Documents [facility] [address] [address], [facility] [address] [place] [address] <No scans attached> 04/08/2019 Converted 13x Documents [facility] [address] , [facility] [address] [place] [address] <No scans attached> 04/08/2019 Converted 13x Documents [facility] [address] [address], [facility] [address] [place] [address] <No scans attached> Last Filed Vital Signs Vital Sign Reading Time Taken Comments Blood Pressure 147/85 05/11/2021 11:45 AM LGSW Pulse 67 05/11/2021 11:45 AM LGSW Temperature - - Respiratory Rate - - Oxygen Saturation - - Inhaled Oxygen Concentration - - Weight - - Height - - Body Mass Index - - Plan of Treatment Not on file Procedures Procedure Name Priority Date/Time Associated Diagnosis Comments ORAL HYGIENE INSTRUCTIONS Routine 2021 12:30 PM LGSW SHANE DECON Routine 05/11/2021 12:30 PM LGSW TOPICAL APPLICATION OF FLUORIDE VARNISH Routine 05/11/2021 12:30 PM LGSW PROPHYLAXIS - ADULT Routine 05/11/2021 1 2:30 PM LGSW LR ANTIBACT IRR/QUAD Routine 05/11/2021 12:30 PM LGSW LL ANTIBACT IRR/QUAD Routine 05/11/2021 12:30 PM LGSW UL ANTIBACT IRR/QUAD Routine 05/11/2021 12:30 PM LGSW UR ANTIBACT IRR/QUAD Routine 05/11/2021 12:30 PM LGSW INTRAORAL PHOTO Routine 05/11/2021 11:00 AM LGSW INTRAORAL PHOTO Routine 05/11/2021 11:00 AM LGSW INTRAORAL PHOTO Routine 05/11/2021 11:00 AM LGSW INTRAORAL PHOTO Routine 05/11/2021 11:00 AM LGSW BITEWINGS - FOUR RADIOGRAPHIC IMAGES Routine 05/11/2021 11:00 AM LGSW ADDITIONAL X-RAY Routine 05/11/2021 11:0 0 AM LGSW ADDITIONAL X-RAY Routine 05/11/2021 11:0 0 AM LGSW ADDITIONAL X-RAY Routine 05/11/2021 11:0 0 AM LGSW ADDITIONAL X-RAY Routine 05/11/2021 11:0 0 AM LGSW ADDITIONAL X-RAY Routine 05/11/2021 11:0 0 AM LGSW SINGLE X-RAY Routine 05/11/2021 11:00 AM LGSW PERIODIC ORAL EVALUATION - ESTABLISHED PATIENT Routine 05/11/2021 11:00 AM LGSW PERIODIC ORAL EVALUATION - ESTABLISHED PATIENT Routine [...] - ESTABLISHED PATIENT Routine 05/11/2020 2:00 AM LGSW ORAL HYGIENE INSTRUCTIONS Routine 2020 2:00 AM LGSW TOPICAL APPLICATION OF FLUORIDE VARNISH Routine 05/11/2020 2:00 AM LGSW PROPHYLAXIS - ADULT Routine 05/11/2020 2 :00 AM LGSW 30 CEMENT CROWN Routine 04/13/2020 2:00 AM LGSW SINGLE X-RAY Routine 04/13/2020 2:00 AM LGSW 30 TREATMENT OF ROOT CANAL OBSTRUCTION; NON-SURGICAL ACCESS Routine 03/26/2020 2:00 AM LGSW LIMITED ORAL EVALUATION - PROBLEM FOCUSED Routine 03/26/2020 2:00 AM LGSW 30 ENDODONTIC THERAPY, MOLAR TOOTH (EXCLUDING FINAL VOODOO) Routine 03/26/2020 2:00 AM LGSW 30 PULP VITALITY TESTS Routine 2:00 AM LGSW 30 CORE BUILDUP, INCLUDING ANY PINS WHEN REQUIRED Routine 03/26/2020 2:00 AM LGSW 30 CROWN PORC POST Routine 03/26/2020 2: 00 AM LGSW CANCELLED APPOINTMENT Routine 03/19/2020 2:00 AM LGSW ADDITIONAL X-RAY Routine 03/18/2020 2:00 AM LGSW SINGLE X-RAY Routine 03/18/2020 2:00 AM LGSW INTRAORAL PHOTO Routine 03/18/2020 2:00 AM LGSW PERIODIC ORAL EVALUATION - ESTABLISHED PATIENT Routine [...] - ESTABLISHED PATIENT Routine 04/29/2019 2:00 AM LGSW ORAL HYGIENE INSTRUCTIONS Routine 2019 2:00 AM LGSW 15 MB ARESTIN 2 SITE/TTH Routine 020 2:00 AM LGSW TOPICAL APPLICATION OF FLUORIDE VARNISH Routine 04/29/2019 2:00 AM LGSW PROPHYLAXIS - ADULT Routine 04/29/2019 2 :00 AM LGSW ORAL HYGIENE INSTRUCTIONS Routine 2018 2:00 AM [...] - ESTABLISHED PATIENT Routine 04/02/2018 2:00 AM LGSW ORAL HYGIENE INSTRUCTIONS Routine 2018 2:00 AM LGSW 1 FM IRR W/GROSS SCALE Routine 9 2:00 AM LGSW TOPICAL APPLICATION OF FLUORIDE VARNISH Routine 04/02/2018 2:00 AM LGSW PROPHYLAXIS - ADULT Routine 04/02/2018 2 :00 AM LGSW BITEWINGS - FOUR RADIOGRAPHIC IMAGES Routine 04/02/2018 2:00 AM LGSW ADDITIONAL X-RAY Routine 04/02/2018 2:00 AM LGSW ADDITIONAL X-RAY Routine 04/02/2018 2:00 AM LGSW ADDITIONAL X-RAY Routine 04/02/2018 2:00 AM LGSW ADDITIONAL X-RAY Routine 04/02/2018 2:00 AM LGSW ADDITIONAL X-RAY Routine 04/02/2018 2:00 AM LGSW SINGLE X-RAY Routine 04/02/2018 2:00 AM LGSW 19 O AMALGAM 1 SURFACE Routine 8 [...]
== END 2024-12-03 10:31 | disposition home or self-care (01) ==
LOC: HO.MAMMO 10:30
PROVIDERS: PCP Nurse Practitioner Family; Visit Provider Nurse Practitioner Family
DX: Z12.31 Encounter for screening mammogram for malignant neoplasm of breast (principal)
CPT/HCPCS: 77063; 77067

== ENCOUNTER → 2024-12-03 10:45 | Outpatient (BNV) | payer MEDICARE, SELFPAY | PROVIDERS: PCP Nurse Practitioner Family; Visit Provider Internal Medicine | DX: Z12.31 Encounter for screening mammogram for malignant neoplasm of breast (principal) | CPT/HCPCS: 77063; 77067 ==

== ENCOUNTER 2024-12-06 07:41 | Outpatient (REF) | payer MEDICARE, SELFPAY ==
--- OUTSIDE RECORDS SUMMARY | 2024-12-06 07:45 | XMS_ITS | Encounter Summary ---
Author Organization [facility] Address [address] [place] [address] Care Team Providers Care Brick Washer Name Role Phone Unavailable Primary Care Provider Unavailabl e Prior Encounters Date Type Department Care Team Description 05/11/2021 12:30 PM CODING MACHINE OPERATOR Office Visit [facility] [address], [facility] [address] [place] [address] Hailey Herrera, [facility] 05/11/2021 Orders Only [facility] [address] [address], [facility] [address] [place] [address] Domenic Bauer 05/11/2021 Travel 05/11/2021 11:00 AM CODING MACHINE OPERATOR Office Visit [facility] [address] [address], [facility] [address] [place] [address] Domenic Bauer 04/08/2019 Converted CPS Chart Documents [facility] [address] [address], [facility] [address] [place] [address] <No scans attached> 04/08/2019 Converted 13x Documents [facility] [address] , [facility] [address] [place] [address] <No scans attached> 04/08/2019 Converted 13x Documents [facility] [address], [facility] [address] [place] [address] <No scans attached> Last Filed Vital Signs Vital Sign Reading Time Taken Comments Blood Pressure 147/85 05/11/2021 11:45 AM CODING MACHINE OPERATOR Pulse 67 05/11/2021 11:45 AM CODING MACHINE OPERATOR Temperature - - Respiratory Rate - - Oxygen Saturation - - Inhaled Oxygen Concentration - - Weight - - Height - - Body Mass Index - - Plan of Treatment Not on file Procedures Procedure Name Priority Date/Time Associated Diagnosis Comments ORAL HYGIENE INSTRUCTIONS Routine 2021 12:30 PM CODING MACHINE OPERATOR SHANE DECON Routine 05/11/2021 12:30 PM CODING MACHINE OPERATOR TOPICAL APPLICATION OF FLUORIDE VARNISH Routine 05/11/2021 12:30 PM CODING MACHINE OPERATOR PROPHYLAXIS - ADULT Routine 05/11/2021 1 2:30 PM CODING MACHINE OPERATOR LR ANTIBACT IRR/QUAD Routine 05/11/2021 12:30 PM CODING MACHINE OPERATOR LL ANTIBACT IRR/QUAD Routine 05/11/2021 12:30 PM CODING MACHINE OPERATOR UL ANTIBACT IRR/QUAD Routine 05/11/2021 12:30 PM CODING MACHINE OPERATOR UR ANTIBACT IRR/QUAD Routine 05/11/2021 12:30 PM CODING MACHINE OPERATOR INTRAORAL PHOTO Routine 05/11/2021 11:00 AM CODING MACHINE OPERATOR INTRAORAL PHOTO Routine 05/11/2021 11:00 AM CODING MACHINE OPERATOR INTRAORAL PHOTO Routine 05/11/2021 11:00 AM CODING MACHINE OPERATOR INTRAORAL PHOTO Routine 05/11/2021 11:00 AM CODING MACHINE OPERATOR BITEWINGS - FOUR RADIOGRAPHIC IMAGES Routine 05/11/2021 11:00 AM CODING MACHINE OPERATOR ADDITIONAL X-RAY Routine 05/11/2021 11:0 0 AM CODING MACHINE OPERATOR ADDITIONAL X-RAY Routine 05/11/2021 11:0 0 AM CODING MACHINE OPERATOR ADDITIONAL X-RAY Routine 05/11/2021 11:0 0 AM CODING MACHINE OPERATOR ADDITIONAL X-RAY Routine 05/11/2021 11:0 0 AM CODING MACHINE OPERATOR ADDITIONAL X-RAY Routine 05/11/2021 11:0 0 AM CODING MACHINE OPERATOR SINGLE X-RAY Routine 05/11/2021 11:00 AM CODING MACHINE OPERATOR PERIODIC ORAL EVALUATION - ESTABLISHED PATIENT Routine 05/11/2021 11:00 AM CODING MACHINE OPERATOR PERIODIC ORAL EVALUATION - ESTABLISHED PATIENT Routine [...] - ESTABLISHED PATIENT Routine 05/11/2020 2:00 AM CODING MACHINE OPERATOR ORAL HYGIENE INSTRUCTIONS Routine 2020 2:00 AM CODING MACHINE OPERATOR TOPICAL APPLICATION OF FLUORIDE VARNISH Routine 05/11/2020 2:00 AM CODING MACHINE OPERATOR PROPHYLAXIS - ADULT Routine 05/11/2020 2 :00 AM CODING MACHINE OPERATOR 30 CEMENT CROWN Routine 04/13/2020 2:00 AM CODING MACHINE OPERATOR SINGLE X-RAY Routine 04/13/2020 2:00 AM CODING MACHINE OPERATOR 30 TREATMENT OF ROOT CANAL OBSTRUCTION; NON-SURGICAL ACCESS Routine 03/26/2020 2:00 AM CODING MACHINE OPERATOR LIMITED ORAL EVALUATION - PROBLEM FOCUSED Routine 03/26/2020 2:00 AM CODING MACHINE OPERATOR 30 ENDODONTIC THERAPY, MOLAR TOOTH (EXCLUDING FINAL AMISH) Routine 03/26/2020 2:00 AM CODING MACHINE OPERATOR 30 PULP VITALITY TESTS Routine 2:00 AM CODING MACHINE OPERATOR 30 CORE BUILDUP, INCLUDING ANY PINS WHEN REQUIRED Routine 03/26/2020 2:00 AM CODING MACHINE OPERATOR 30 CROWN PORC POST Routine 03/26/2020 2: 00 AM CODING MACHINE OPERATOR CANCELLED APPOINTMENT Routine 03/19/2020 2:00 AM CODING MACHINE OPERATOR ADDITIONAL X-RAY Routine 03/18/2020 2:00 AM CODING MACHINE OPERATOR SINGLE X-RAY Routine 03/18/2020 2:00 AM CODING MACHINE OPERATOR INTRAORAL PHOTO Routine 03/18/2020 2:00 AM CODING MACHINE OPERATOR PERIODIC ORAL EVALUATION - ESTABLISHED PATIENT Routine [...] - ESTABLISHED PATIENT Routine 04/29/2019 2:00 AM CODING MACHINE OPERATOR ORAL HYGIENE INSTRUCTIONS Routine 2019 2:00 AM CODING MACHINE OPERATOR 15 MB ARESTIN 2 SITE/TTH Routine 020 2:00 AM CODING MACHINE OPERATOR TOPICAL APPLICATION OF FLUORIDE VARNISH Routine 04/29/2019 2:00 AM CODING MACHINE OPERATOR PROPHYLAXIS - ADULT Routine 04/29/2019 2 :00 AM CODING MACHINE OPERATOR ORAL HYGIENE INSTRUCTIONS Routine 2018 2:00 AM [...] - ESTABLISHED PATIENT Routine 04/02/2018 2:00 AM CODING MACHINE OPERATOR ORAL HYGIENE INSTRUCTIONS Routine 2018 2:00 AM CODING MACHINE OPERATOR 1 FM IRR W/GROSS SCALE Routine 9 2:00 AM CODING MACHINE OPERATOR TOPICAL APPLICATION OF FLUORIDE VARNISH Routine 04/02/2018 2:00 AM CODING MACHINE OPERATOR PROPHYLAXIS - ADULT Routine 04/02/2018 2 :00 AM CODING MACHINE OPERATOR BITEWINGS - FOUR RADIOGRAPHIC IMAGES Routine 04/02/2018 2:00 AM CODING MACHINE OPERATOR ADDITIONAL X-RAY Routine 04/02/2018 2:00 AM CODING MACHINE OPERATOR ADDITIONAL X-RAY Routine 04/02/2018 2:00 AM CODING MACHINE OPERATOR ADDITIONAL X-RAY Routine 04/02/2018 2:00 AM CODING MACHINE OPERATOR ADDITIONAL X-RAY Routine 04/02/2018 2:00 AM CODING MACHINE OPERATOR ADDITIONAL X-RAY Routine 04/02/2018 2:00 AM CODING MACHINE OPERATOR SINGLE X-RAY Routine 04/02/2018 2:00 AM CODING MACHINE OPERATOR 19 O AMALGAM 1 SURFACE Routine 8 [...]
--- OUTSIDE RECORDS SUMMARY | 2024-12-06 07:45 | XMS_ITS | Clinical Summary ---
Author Organization [facility] Health Address [address] [place] [address] Care Team Providers Care Field Control Inspector Name Role Phone Unavailable Primary Care Provider [...] Comments Blood Pressure 147/85 05/11/2021 11:45 AM ASSISTANT FOOTBALL COACH Pulse 67 05/11/2021 11:45 AM ASSISTANT FOOTBALL COACH Temperature - - Respiratory Rate - - [...] - ADULT Routine 05/11/2021 1 2:30 PM ASSISTANT FOOTBALL COACH PERIODIC ORAL EVALUATION - ESTABLISHED PATIENT Routine 05/11/2021 11:00 AM ASSISTANT FOOTBALL COACH PANORAMIC RADIOGRAPHIC IMAGE Routine 09/25/2017 2:00 AM CDT INTRAORAL - COMPREHENSIVE SERIES OF RADIOGRAPHIC IMAGES Routine 09/25/2017 2:00 AM CDT from Last 3 Months or Most Recently Relevant to Health Maintenance Insurance [employer] DENT[employer] PPO
== END 2024-12-06 07:42 | disposition home or self-care (01) ==
LOC: HO.LAB 07:41
PROVIDERS: PCP Nurse Practitioner Family; Visit Provider Student in an Organized Health Care Education/Training Program
DX: D35.00 Benign neoplasm of unspecified adrenal gland (principal)
CPT/HCPCS: 36415; 80299; 82024; 82533

== ENCOUNTER 2024-12-12 11:33 | Outpatient (AMB) | payer MEDICARE, SELFPAY ==
[2024-12-12 11:38] VITALS: BP 136/76; BMI 31.0
--- NOTE | 2024-12-12 11:38 | MHC.OFFVIS ---
Vital Signs 12/12/24 11:38 Height 5 ft 2.5 in Weight 172 lb BMI 31.0 BP 136/76 Intake Visit Reasons: Ultra sound follow up Fabricator Industrial Furnace Required: No Information Interpreted: non-clinical & clinical Accompanied by: Spouse Allergies No Known Allergies Allergy (Verified 12/12/24 11:42) Post menopausal: Yes HPI Comments Details: The patient is presenting for follow-up regarding possible ovarian cyst identified on CT urogram. Pelvic Ultrasound was done. No complaints 11/29/2024 pelvic ultrasound showed the following: Transvaginal scanning performed. No abnormal findings in the area of the vaginal cuff Right ovary not visualized. Left adnexal finding, possible ovary 3.0 x 2.0 x 1.5 cm. No definite abnormal pelvic mass No free fluid. IMPRESSION: 1. Limited exam with no definite adnexal mass. [facility] Medical History Adrenal nodule Osteoarthritis Surgical History History of cataract surgery H/O eye surgery S/P tonsillectomy History of partial hysterectomy S/P knee surgery Family History Father HTN (hypertension) Prostate cancer Leukemia Mother Cancer Social History Household Members: Spouse Housing: Apartment Alcohol intake: never Patient Tobacco Use Status: Never used Tobacco e-Cigarette/Vaping Use: Never Used Second Hand Smoke Exposure: No service: No Current occupational status: retired Sexual orientation: Straight/Heterosexual Gender identity: Female Cognitive needs: No Hearing needs: No Vision needs: No Review of Systems Const All systems reviewed & are unremarkable except as noted in HPI and below Reports as per HPI and Reports no additional complaints GI Reports no additional complaints Reports no additional complaints Physical Exam Vital Signs: BMI result Body Mass Index 31.0 Assessment & Plan Assessment & Plan (1) Ovarian cyst: Code(s): N83.209 - Unspecified ovarian cyst, unspecified side Category: Medical Plan: Discussed with the patient the results the ultrasound showed limited views, but no definite adnexal masses, right ovary was not visualized. Discussed with the patient the sensitivity, specificity false-positive false-negative rate in using the ultrasound to detect adnexal pathology, offered the patient MRI for better visualization and diagnosis versus expectant management. All pros and cons, risks and benefits of each were discussed with the patient, the patient decided to proceed with expectant management and understanding case of undiagnosed adnexal/ovarian abnormalities by ultrasound this could delay in the diagnose and the treatment and might negatively affect the outcome. All questions answered, the patient verbalized understanding Coding Level of Care Code Est Pt Level 3 (48541) Diagnoses Ovarian cyst N83.209
--- OUTSIDE RECORDS SUMMARY | 2024-12-12 16:21 | XMS_ITS | Clinical Summary ---
Author Organization [facility] Health Address [address] [place] [address] Care Team Providers Care X Ray Nurse Name Role Phone Unavailable Primary Care Provider [...] Comments Blood Pressure 147/85 05/11/2021 11:45 AM AGRICULTURAL EQUIPMENT MECHANIC Pulse 67 05/11/2021 11:45 AM AGRICULTURAL EQUIPMENT MECHANIC Temperature - - Respiratory Rate - - [...] - ADULT Routine 05/11/2021 1 2:30 PM AGRICULTURAL EQUIPMENT MECHANIC PERIODIC ORAL EVALUATION - ESTABLISHED PATIENT Routine 05/11/2021 11:00 AM AGRICULTURAL EQUIPMENT MECHANIC PANORAMIC RADIOGRAPHIC IMAGE Routine 09/25/2017 2:00 AM CDT INTRAORAL - COMPREHENSIVE SERIES OF RADIOGRAPHIC IMAGES Routine 09/25/2017 2:00 AM CDT from Last 3 Months or Most Recently Relevant to Health Maintenance Insurance [employer] DENT[employer] PPO
--- OUTSIDE RECORDS SUMMARY | 2024-12-12 16:21 | XMS_ITS | Encounter Summary ---
Author Organization [facility] Address [address] [place] [address] Care Team Providers Care Residence Leasing Agent Name Role Phone Unavailable Primary Care Provider Unavailabl e Prior Encounters Date Type Department Care Team Description 05/11/2021 12:30 PM SELENIUM PLANT OPERATOR Office Visit [facility] [id number], [facility] [address] [place] [address] Hailey Herrera, [facility] 05/11/2021 Orders Only [facility] [address] [address], [facility] [address] [place] [address] Domenic Bauer 05/11/2021 Travel 05/11/2021 11:00 AM SELENIUM PLANT OPERATOR Office Visit [facility] [address] [address], [facility] [address] [place] [address] Domenic Bauer 04/08/2019 Converted CPS Chart Documents [facility] [address] [address], [facility] [address] [place] [address] <No scans attached> 04/08/2019 Converted 13x Documents [facility] [address] , [facility] [address] [place] [address] <No scans attached> 04/08/2019 Converted 13x Documents [facility] [address] [address], [facility] [address] [place] [address] <No scans attached> Last Filed Vital Signs Vital Sign Reading Time Taken Comments Blood Pressure 147/85 05/11/2021 11:45 AM SELENIUM PLANT OPERATOR Pulse 67 05/11/2021 11:45 AM SELENIUM PLANT OPERATOR Temperature - - Respiratory Rate - - Oxygen Saturation - - Inhaled Oxygen Concentration - - Weight - - Height - - Body Mass Index - - Plan of Treatment Not on file Procedures Procedure Name Priority Date/Time Associated Diagnosis Comments ORAL HYGIENE INSTRUCTIONS Routine 2021 12:30 PM SELENIUM PLANT OPERATOR SHANE DECON Routine 05/11/2021 12:30 PM SELENIUM PLANT OPERATOR TOPICAL APPLICATION OF FLUORIDE VARNISH Routine 05/11/2021 12:30 PM SELENIUM PLANT OPERATOR PROPHYLAXIS - ADULT Routine 05/11/2021 1 2:30 PM SELENIUM PLANT OPERATOR LR ANTIBACT IRR/QUAD Routine 05/11/2021 12:30 PM SELENIUM PLANT OPERATOR LL ANTIBACT IRR/QUAD Routine 05/11/2021 12:30 PM SELENIUM PLANT OPERATOR UL ANTIBACT IRR/QUAD Routine 05/11/2021 12:30 PM SELENIUM PLANT OPERATOR UR ANTIBACT IRR/QUAD Routine 05/11/2021 12:30 PM SELENIUM PLANT OPERATOR INTRAORAL PHOTO Routine 05/11/2021 11:00 AM SELENIUM PLANT OPERATOR INTRAORAL PHOTO Routine 05/11/2021 11:00 AM SELENIUM PLANT OPERATOR INTRAORAL PHOTO Routine 05/11/2021 11:00 AM SELENIUM PLANT OPERATOR INTRAORAL PHOTO Routine 05/11/2021 11:00 AM SELENIUM PLANT OPERATOR BITEWINGS - FOUR RADIOGRAPHIC IMAGES Routine 05/11/2021 11:00 AM SELENIUM PLANT OPERATOR ADDITIONAL X-RAY Routine 05/11/2021 11:0 0 AM SELENIUM PLANT OPERATOR ADDITIONAL X-RAY Routine 05/11/2021 11:0 0 AM SELENIUM PLANT OPERATOR ADDITIONAL X-RAY Routine 05/11/2021 11:0 0 AM SELENIUM PLANT OPERATOR ADDITIONAL X-RAY Routine 05/11/2021 11:0 0 AM SELENIUM PLANT OPERATOR ADDITIONAL X-RAY Routine 05/11/2021 11:0 0 AM SELENIUM PLANT OPERATOR SINGLE X-RAY Routine 05/11/2021 11:00 AM SELENIUM PLANT OPERATOR PERIODIC ORAL EVALUATION - ESTABLISHED PATIENT Routine 05/11/2021 11:00 AM SELENIUM PLANT OPERATOR PERIODIC ORAL EVALUATION - ESTABLISHED PATIENT [...] - ESTABLISHED PATIENT Routine 05/11/2020 2:00 AM SELENIUM PLANT OPERATOR ORAL HYGIENE INSTRUCTIONS Routine 2020 2:00 AM SELENIUM PLANT OPERATOR TOPICAL APPLICATION OF FLUORIDE VARNISH Routine 05/11/2020 2:00 AM SELENIUM PLANT OPERATOR PROPHYLAXIS - ADULT Routine 05/11/2020 2 :00 AM SELENIUM PLANT OPERATOR 30 CEMENT CROWN Routine 04/13/2020 2:00 AM SELENIUM PLANT OPERATOR SINGLE X-RAY Routine 04/13/2020 2:00 AM SELENIUM PLANT OPERATOR 30 TREATMENT OF ROOT CANAL OBSTRUCTION; NON-SURGICAL ACCESS Routine 03/26/2020 2:00 AM SELENIUM PLANT OPERATOR LIMITED ORAL EVALUATION - PROBLEM FOCUSED Routine 03/26/2020 2:00 AM SELENIUM PLANT OPERATOR 30 ENDODONTIC THERAPY, MOLAR TOOTH (EXCLUDING FINAL LATTER-DAY) Routine 03/26/2020 2:00 AM SELENIUM PLANT OPERATOR 30 PULP VITALITY TESTS Routine 2:00 AM SELENIUM PLANT OPERATOR 30 CORE BUILDUP, INCLUDING ANY PINS WHEN REQUIRED Routine 03/26/2020 2:00 AM SELENIUM PLANT OPERATOR 30 CROWN PORC POST Routine 03/26/2020 2: 00 AM SELENIUM PLANT OPERATOR CANCELLED APPOINTMENT Routine 03/19/2020 2:00 AM SELENIUM PLANT OPERATOR ADDITIONAL X-RAY Routine 03/18/2020 2:00 AM SELENIUM PLANT OPERATOR SINGLE X-RAY Routine 03/18/2020 2:00 AM SELENIUM PLANT OPERATOR INTRAORAL PHOTO Routine 03/18/2020 2:00 AM SELENIUM PLANT OPERATOR PERIODIC ORAL EVALUATION - ESTABLISHED PATIENT [...] - ESTABLISHED PATIENT Routine 04/29/2019 2:00 AM SELENIUM PLANT OPERATOR ORAL HYGIENE INSTRUCTIONS Routine 2019 2:00 AM SELENIUM PLANT OPERATOR 15 MB ARESTIN 2 SITE/TTH Routine 020 2:00 AM SELENIUM PLANT OPERATOR TOPICAL APPLICATION OF FLUORIDE VARNISH Routine 04/29/2019 2:00 AM SELENIUM PLANT OPERATOR PROPHYLAXIS - ADULT Routine 04/29/2019 2 :00 AM SELENIUM PLANT OPERATOR ORAL HYGIENE INSTRUCTIONS Routine 2018 2:00 [...] - ESTABLISHED PATIENT Routine 04/02/2018 2:00 AM SELENIUM PLANT OPERATOR ORAL HYGIENE INSTRUCTIONS Routine 2018 2:00 AM SELENIUM PLANT OPERATOR 1 FM IRR W/GROSS SCALE Routine 9 2:00 AM SELENIUM PLANT OPERATOR TOPICAL APPLICATION OF FLUORIDE VARNISH Routine 04/02/2018 2:00 AM SELENIUM PLANT OPERATOR PROPHYLAXIS - ADULT Routine 04/02/2018 2 :00 AM SELENIUM PLANT OPERATOR BITEWINGS - FOUR RADIOGRAPHIC IMAGES Routine 04/02/2018 2:00 AM SELENIUM PLANT OPERATOR ADDITIONAL X-RAY Routine 04/02/2018 2:00 AM SELENIUM PLANT OPERATOR ADDITIONAL X-RAY Routine 04/02/2018 2:00 AM SELENIUM PLANT OPERATOR ADDITIONAL X-RAY Routine 04/02/2018 2:00 AM SELENIUM PLANT OPERATOR ADDITIONAL X-RAY Routine 04/02/2018 2:00 AM SELENIUM PLANT OPERATOR ADDITIONAL X-RAY Routine 04/02/2018 2:00 AM SELENIUM PLANT OPERATOR SINGLE X-RAY Routine 04/02/2018 2:00 AM SELENIUM PLANT OPERATOR 19 O AMALGAM 1 SURFACE Routine [...]
== END 2024-12-12 11:50 | disposition home or self-care (01) ==
LOC: HO.HWS 11:33
PROVIDERS: PCP Nurse Practitioner Family; Visit Provider Obstetrics & Gynecology
DX: N83.209 Unspecified ovarian cyst, unspecified side (principal)
CPT/HCPCS: 99213

== ENCOUNTER → 2024-12-12 11:33 | Outpatient (BNVA) | payer MEDICARE, SELFPAY | PROVIDERS: PCP Nurse Practitioner Family; Visit Provider Obstetrics & Gynecology | DX: Z71.2 Person consulting for explanation of examination or test findings (principal); N83.209 Unspecified ovarian cyst, unspecified side | CPT/HCPCS: 99212 ==

== ENCOUNTER 2024-12-19 07:35 | Outpatient (REF) | payer MEDICARE, SELFPAY ==
--- OUTSIDE RECORDS SUMMARY | 2024-12-19 07:41 | XMS_ITS | Encounter Summary ---
Author Organization [facility] Address [address] [place] [address] Care Team Providers Care Gas Singer Name Role Phone Unavailable Primary Care Provider Unavailabl e Prior Encounters Date Type Department Care Team Description 05/11/2021 12:30 PM SEMI DRIVER Office Visit [facility] [address] [address], [facility] [address] [place] [address] Hailey Herrera, [facility] 05/11/[address] [facility] [address] [address], [facility] [address] [place] [address] Domenic Bauer 05/11/2021 Travel 05/11/2021 11:00 AM SEMI DRIVER Office Visit [facility] [address] [address], [facility] [address] [place] [address] Domenic Bauer 04/08/2019 Converted CPS Chart Documents [facility] [address] [address], [facility] [address] [place] [address] <No scans attached> 04/08/2019 Converted 13x Documents [facility] [address] , [facility] [address] [place] [address] <No scans attached> 04/08/[address] [facility] [address] [address], [facility] [address] [place] [address] <No scans attached> Last Filed Vital Signs Vital Sign Reading Time Taken Comments Blood Pressure 147/85 05/11/2021 11:45 AM SEMI DRIVER Pulse 67 05/11/2021 11:45 AM SEMI DRIVER Temperature - - Respiratory Rate - - Oxygen Saturation - - Inhaled Oxygen Concentration - - Weight - - Height - - Body Mass Index - - Plan of Treatment Not on file Procedures Procedure Name Priority Date/Time Associated Diagnosis Comments ORAL HYGIENE INSTRUCTIONS Routine 2021 12:30 PM SEMI DRIVER SHANE DECON Routine 05/11/2021 12:30 PM SEMI DRIVER TOPICAL APPLICATION OF FLUORIDE VARNISH Routine 05/11/2021 12:30 PM SEMI DRIVER PROPHYLAXIS - ADULT Routine 05/11/2021 1 2:30 PM SEMI DRIVER LR ANTIBACT IRR/QUAD Routine 05/11/2021 12:30 PM SEMI DRIVER LL ANTIBACT IRR/QUAD Routine 05/11/2021 12:30 PM SEMI DRIVER UL ANTIBACT IRR/QUAD Routine 05/11/2021 12:30 PM SEMI DRIVER UR ANTIBACT IRR/QUAD Routine 05/11/2021 12:30 PM SEMI DRIVER INTRAORAL PHOTO Routine 05/11/2021 11:00 AM SEMI DRIVER INTRAORAL PHOTO Routine 05/11/2021 11:00 AM SEMI DRIVER INTRAORAL PHOTO Routine 05/11/2021 11:00 AM SEMI DRIVER INTRAORAL PHOTO Routine 05/11/2021 11:00 AM SEMI DRIVER BITEWINGS - FOUR RADIOGRAPHIC IMAGES Routine 05/11/2021 11:00 AM SEMI DRIVER ADDITIONAL X-RAY Routine 05/11/2021 11:0 0 AM SEMI DRIVER ADDITIONAL X-RAY Routine 05/11/2021 11:0 0 AM SEMI DRIVER ADDITIONAL X-RAY Routine 05/11/2021 11:0 0 AM SEMI DRIVER ADDITIONAL X-RAY Routine 05/11/2021 11:0 0 AM SEMI DRIVER ADDITIONAL X-RAY Routine 05/11/2021 11:0 0 AM SEMI DRIVER SINGLE X-RAY Routine 05/11/2021 11:00 AM SEMI DRIVER PERIODIC ORAL EVALUATION - ESTABLISHED PATIENT Routine 05/11/2021 11:00 AM SEMI DRIVER PERIODIC ORAL EVALUATION - ESTABLISHED PATIENT Routine [...] - ESTABLISHED PATIENT Routine 05/11/2020 2:00 AM SEMI DRIVER ORAL HYGIENE INSTRUCTIONS Routine 2020 2:00 AM SEMI DRIVER TOPICAL APPLICATION OF FLUORIDE VARNISH Routine 05/11/2020 2:00 AM SEMI DRIVER PROPHYLAXIS - ADULT Routine 05/11/2020 2 :00 AM SEMI DRIVER 30 CEMENT CROWN Routine 04/13/2020 2:00 AM SEMI DRIVER SINGLE X-RAY Routine 04/13/2020 2:00 AM SEMI DRIVER 30 TREATMENT OF ROOT CANAL OBSTRUCTION; NON-SURGICAL ACCESS Routine 03/26/2020 2:00 AM SEMI DRIVER LIMITED ORAL EVALUATION - PROBLEM FOCUSED Routine 03/26/2020 2:00 AM SEMI DRIVER 30 ENDODONTIC THERAPY, MOLAR TOOTH (EXCLUDING FINAL RESTORATIONIST) Routine 03/26/2020 2:00 AM SEMI DRIVER 30 PULP VITALITY TESTS Routine 2:00 AM SEMI DRIVER 30 CORE BUILDUP, INCLUDING ANY PINS WHEN REQUIRED Routine 03/26/2020 2:00 AM SEMI DRIVER 30 CROWN PORC POST Routine 03/26/2020 2: 00 AM SEMI DRIVER CANCELLED APPOINTMENT Routine 03/19/2020 2:00 AM SEMI DRIVER ADDITIONAL X-RAY Routine 03/18/2020 2:00 AM SEMI DRIVER SINGLE X-RAY Routine 03/18/2020 2:00 AM SEMI DRIVER INTRAORAL PHOTO Routine 03/18/2020 2:00 AM SEMI DRIVER PERIODIC ORAL EVALUATION - ESTABLISHED PATIENT Routine [...] - ESTABLISHED PATIENT Routine 04/29/2019 2:00 AM SEMI DRIVER ORAL HYGIENE INSTRUCTIONS Routine 2019 2:00 AM SEMI DRIVER 15 MB ARESTIN 2 SITE/TTH Routine 020 2:00 AM SEMI DRIVER TOPICAL APPLICATION OF FLUORIDE VARNISH Routine 04/29/2019 2:00 AM SEMI DRIVER PROPHYLAXIS - ADULT Routine 04/29/2019 2 :00 AM SEMI DRIVER ORAL HYGIENE INSTRUCTIONS Routine 2018 2:00 AM [...] - ESTABLISHED PATIENT Routine 04/02/2018 2:00 AM SEMI DRIVER ORAL HYGIENE INSTRUCTIONS Routine 2018 2:00 AM SEMI DRIVER 1 FM IRR W/GROSS SCALE Routine 9 2:00 AM SEMI DRIVER TOPICAL APPLICATION OF FLUORIDE VARNISH Routine 04/02/2018 2:00 AM SEMI DRIVER PROPHYLAXIS - ADULT Routine 04/02/2018 2 :00 AM SEMI DRIVER BITEWINGS - FOUR RADIOGRAPHIC IMAGES Routine 04/02/2018 2:00 AM SEMI DRIVER ADDITIONAL X-RAY Routine 04/02/2018 2:00 AM SEMI DRIVER ADDITIONAL X-RAY Routine 04/02/2018 2:00 AM SEMI DRIVER ADDITIONAL X-RAY Routine 04/02/2018 2:00 AM SEMI DRIVER ADDITIONAL X-RAY Routine 04/02/2018 2:00 AM SEMI DRIVER ADDITIONAL X-RAY Routine 04/02/2018 2:00 AM SEMI DRIVER SINGLE X-RAY Routine 04/02/2018 2:00 AM SEMI DRIVER 19 O AMALGAM 1 SURFACE Routine 8 [...]
--- OUTSIDE RECORDS SUMMARY | 2024-12-19 07:41 | XMS_ITS | Clinical Summary ---
Author Organization [facility] Health Address [address] [place] [address] Care Team Providers Care Computer Education Teacher Name Role Phone Unavailable Primary Care Provider [...] Comments Blood Pressure 147/85 05/11/2021 11:45 AM LOADING MACHINE TOOL SETTER Pulse 67 05/11/2021 11:45 AM LOADING MACHINE TOOL SETTER Temperature - - Respiratory Rate - - [...] - ADULT Routine 05/11/2021 1 2:30 PM LOADING MACHINE TOOL SETTER PERIODIC ORAL EVALUATION - ESTABLISHED PATIENT Routine 05/11/2021 11:00 AM LOADING MACHINE TOOL SETTER PANORAMIC RADIOGRAPHIC IMAGE Routine 09/25/2017 2:00 AM CDT INTRAORAL - COMPREHENSIVE SERIES OF RADIOGRAPHIC IMAGES Routine 09/25/2017 2:00 AM CDT from Last 3 Months or Most Recently Relevant to Health Maintenance Insurance [employer] DENTAL PPO
== END 2024-12-19 07:36 | disposition home or self-care (01) ==
LOC: HO.LAB 07:35
PROVIDERS: PCP Nurse Practitioner Family; Visit Provider Student in an Organized Health Care Education/Training Program
DX: E27.9 Disorder of adrenal gland, unspecified (principal)
CPT/HCPCS: 36415; 80299; 82024; 82533

== ENCOUNTER 2025-02-04 07:56 | Outpatient (REF) | payer MEDICARE, SELFPAY ==
--- NOTE | ~2025-02-04 | CT_ITS ---
EXAMINATION: CT ABDOMEN WITHOUT AND WITH CONTRAST CLINICAL INFORMATION: D35.00. Benign neoplasm of unspecified adrenal gland COMPARISON: September 24, 2024. TECHNIQUE: Contiguous axial thin section helical images of the abdomen were performed before and after the administration of 85 mL of Omnipaque 350 intravenous contrast during the portal venous and delayed phases. No reported immediate complications. The data set was reformatted in the coronal and sagittal planes and reviewed on an independent workstation. This CT examination was performed using dose optimization techniques as appropriate, variously including the following: *Automated exposure control *Adjustment of mA and/or kV according to patient size (this includes techniques or standardized protocols for targeted exams where dose is matched to indication/reason for exam; i.e. extremities or head) *Use of iterative reconstruction technique. DLP: 380 mGy-cm FINDINGS: Right adrenal gland: 11 mm round and hypodense nodular lesion which measures 6 Hounsfield units in the non-IV contrast phase. Left adrenal gland: 12 mm ovoid shaped isodense nodular lesion which measures 11 Hounsfield units in the non-IV contrast, 97 Hounsfield units during the portal venous phase and 39 Hounsfield units on the delayed phase. Ancillary findings: Small hilar hernia. Nonobstructing cluster of 4 mm calculus, left kidney. Small simple cysts, both kidneys. Diverticular disease, left hemicolon. Mixed plaques, aorta. Calcified plaques in the splenic artery without gross aneurysm. Small fat-containing umbilical hernia. Nonspecific prominent mesenteric and retroperitoneal lymph nodes. 1.5 cm cystic structure, left adnexa. Spondylosis, L5-S1 and to a lesser extent L4-5. Chronic interstitial lung disease. CT/CT adrenal wo/w IV con IMPRESSION: Lipid rich adenoma, right adrenal gland. Lipid poor adenoma, left adrenal gland. Fleischner guidelines were followed. Electronically signed by: Malcolm Bill MD 02/04/2025 09:31 AM TANK
[2025-02-04] MEDS: iohexoL 350 MG/ML 100 ML INFUS..BTL IV (09:13)
[2025-02-04 17:26] LABS: Creatinine POC 1.3 mg/dL (0.5-1.4); GFR POC 43
== END 2025-02-04 07:57 | disposition home or self-care (01) ==
LOC: HO.CT 07:56
PROVIDERS: PCP Nurse Practitioner Family; Visit Provider Student in an Organized Health Care Education/Training Program
DX: D35.00 Benign neoplasm of unspecified adrenal gland (principal)
CPT/HCPCS: 74170; 82565; Q9967

== ENCOUNTER → 2025-02-04 08:48 | Outpatient (BNV) | payer MEDICARE, SELFPAY | PROVIDERS: PCP Nurse Practitioner Family; Visit Provider Radiology Diagnostic Radiology | DX: D35.01 Benign neoplasm of right adrenal gland (principal); D35.02 Benign neoplasm of left adrenal gland | CPT/HCPCS: 74170 ==

== ENCOUNTER 2025-02-05 10:41 | Outpatient (REF) | payer MEDICARE, SELFPAY ==
[2025-02-05 13:13] LABS: MANUAL DIFF FLAG NO
[2025-02-05 13:14] LABS: Appearance Urine Clear; Glucose Urine UA Negative (Negative); PH 5.5 (5.0-9.0); Specific Gravity - Urine 1.020 (1.005-1.025)
[2025-02-05 13:34] LABS: Hematocrit 44.4 % (37.0-47.0); Hemoglobin 14.7 g/dl (12.0-16.0); Imm Gran Abs Auto 0.01 X10*3/uL (0.00-0.03); Imm Gran Pct Auto 0.2 % (0.0-0.4); Lymphocytes Absolute Auto 1.4 X10*3/uL (1.2-4.9); Mean Corpuscular HGB Conc 33.1 g/dl (31.0-35.0); Mean Corpuscular Hemoglobin 30.1 pg (27.0-33.0); Mean Corpuscular Volume 91.0 fL (80.0-98.0); NRBC Abs Auto 0.000 X10*3/uL (0.0-0.012); NRBC Pct Auto 0.0 /100WBC (0.0-0.2); Platelet Count 199 X10*3/uL (160-400); Red Blood Count 4.88 X10*6/uL (4.20-5.50); White Blood Count 4.9 X10*3/uL (4.8-10.8)
[2025-02-05 15:52] LABS: Alanine Aminotransferase 31 U/L (0-31); Albumin Level 4.4 g/dL (3.5-5.0); Alkaline Phosphatase 97 U/L (39-117); Anion Gap 13 (12-20); Aspartate Amino Transferase 32 U/L (5-31); Blood Urea Nitrogen 14 mg/dL (9-16); Calcium 9.5 mg/dL (8.4-10.2); Carbon Dioxide 26 mmol/L (22-29); Chloride 106 mmol/L (96-108); Cholesterol 163 mg/dL (<200); Estimated Glomerular Filt Rate > 60; HDL Cholesterol 61 mg/dL (>40); Potassium 4.1 mmol/L (3.3-5.1); Sodium 141 mmol/L (135-145); Total Protein 6.7 g/dL (6.5-8.0); Triglycerides 78 mg/dL (<150)
--- OUTSIDE RECORDS SUMMARY | 2025-02-05 20:58 | XMS_ITS | Encounter Summary ---
Author Organization [facility] Address [address] [place] [address] Care Team Providers Care Clinical Trial Leader Name Role Phone Unavailable Primary Care Provider Unavailabl e Prior Encounters Date Type Department Care Team Description 05/11/2021 12:30 PM PLANT PROPAGATOR Office Visit [facility] [address] [address], [facility] [address] [place] [address] Hailey Herrera, [facility] 05/11/2021 Orders Only [facility] [address] [address], [facility] [address] [place] [address] Domenic Bauer 05/11/2021 Travel 05/11/2021 11:00 AM PLANT PROPAGATOR Office Visit [facility] [address] [address], [facility] [address] [place] [address] Domenic Bauer 04/08/2019 Converted CPS Chart Documents [facility] [address] [address], [facility] [address] [place] [address] <No scans attached> 04/08/2019 Converted 13x Documents [facility] [address] , [facility] [address] [place] [address] <No scans attached> 04/08/2019 Converted 13x Documents [facility] [address] [address], [facility] [address] [place] [address] <No scans attached> Last Filed Vital Signs Vital Sign Reading Time Taken Comments Blood Pressure 147/85 05/11/2021 11:45 AM PLANT PROPAGATOR Pulse 67 05/11/2021 11:45 AM PLANT PROPAGATOR Temperature - - Respiratory Rate - - Oxygen Saturation - - Inhaled Oxygen Concentration - - Weight - - Height - - Body Mass Index - - Plan of Treatment Not on file Procedures Procedure Name Priority Date/Time Associated Diagnosis Comments ORAL HYGIENE INSTRUCTIONS Routine 2021 12:30 PM PLANT PROPAGATOR SHANE DECON Routine 05/11/2021 12:30 PM PLANT PROPAGATOR TOPICAL APPLICATION OF FLUORIDE VARNISH Routine 05/11/2021 12:30 PM PLANT PROPAGATOR PROPHYLAXIS - ADULT Routine 05/11/2021 1 2:30 PM PLANT PROPAGATOR LR ANTIBACT IRR/QUAD Routine 05/11/2021 12:30 PM PLANT PROPAGATOR LL ANTIBACT IRR/QUAD Routine 05/11/2021 12:30 PM PLANT PROPAGATOR UL ANTIBACT IRR/QUAD Routine 05/11/2021 12:30 PM PLANT PROPAGATOR UR ANTIBACT IRR/QUAD Routine 05/11/2021 12:30 PM PLANT PROPAGATOR INTRAORAL PHOTO Routine 05/11/2021 11:00 AM PLANT PROPAGATOR INTRAORAL PHOTO Routine 05/11/2021 11:00 AM PLANT PROPAGATOR INTRAORAL PHOTO Routine 05/11/2021 11:00 AM PLANT PROPAGATOR INTRAORAL PHOTO Routine 05/11/2021 11:00 AM PLANT PROPAGATOR BITEWINGS - FOUR RADIOGRAPHIC IMAGES Routine 05/11/2021 11:00 AM PLANT PROPAGATOR ADDITIONAL X-RAY Routine 05/11/2021 11:0 0 AM PLANT PROPAGATOR ADDITIONAL X-RAY Routine 05/11/2021 11:0 0 AM PLANT PROPAGATOR ADDITIONAL X-RAY Routine 05/11/2021 11:0 0 AM PLANT PROPAGATOR ADDITIONAL X-RAY Routine 05/11/2021 11:0 0 AM PLANT PROPAGATOR ADDITIONAL X-RAY Routine 05/11/2021 11:0 0 AM PLANT PROPAGATOR SINGLE X-RAY Routine 05/11/2021 11:00 AM PLANT PROPAGATOR PERIODIC ORAL EVALUATION - ESTABLISHED PATIENT Routine 05/11/2021 11:00 AM PLANT PROPAGATOR PERIODIC ORAL EVALUATION - ESTABLISHED PATIENT Routine 11/09/2020 2:00 AM CDT ORAL HYGIENE INSTRUCTIONS Routine 2020 2:00 AM CDT 1 FM IRR W/GROSS SCALE Routine 2:00 AM CDT PROPHYLAXIS - ADULT Routine 11/09/2020 2 :00 AM CDT BITEWINGS - FOUR RADIOGRAPHIC IMAGES Routine 11/09/2020 2:00 AM CDT ADDITIONAL X-RAY Routine 11/09/2020 2:0 0 AM CDT ADDITIONAL X-RAY Routine 11/09/2020 2:00 AM CDT ADDITIONAL X-RAY Routine 11/09/2020 2:00 AM CDT ADDITIONAL X-RAY Routine 11/09/2020 2:00 AM CDT ADDITIONAL X-RAY Routine 11/09/2020 2:00 AM CDT SINGLE X-RAY Routine 11/09/2020 2:00 AM CDT PERIODIC ORAL EVALUATION - ESTABLISHED PATIENT Routine 05/11/2020 2:00 AM PLANT PROPAGATOR ORAL HYGIENE INSTRUCTIONS Routine 2020 2:00 AM PLANT PROPAGATOR TOPICAL APPLICATION OF FLUORIDE VARNISH Routine 05/11/2020 2:00 AM PLANT PROPAGATOR PROPHYLAXIS - ADULT Routine 05/11/2020 2 :00 AM PLANT PROPAGATOR 30 CEMENT CROWN Routine 04/13/2020 2:00 AM PLANT PROPAGATOR SINGLE X-RAY Routine 04/13/2020 2:00 AM PLANT PROPAGATOR 30 TREATMENT OF ROOT CANAL OBSTRUCTION; NON-SURGICAL ACCESS Routine 03/26/2020 2:00 AM PLANT PROPAGATOR LIMITED ORAL EVALUATION - PROBLEM FOCUSED Routine 03/26/2020 2:00 AM PLANT PROPAGATOR 30 ENDODONTIC THERAPY, MOLAR TOOTH (EXCLUDING FINAL ISLAM) Routine 03/26/2020 2:00 AM PLANT PROPAGATOR 30 PULP VITALITY TESTS Routine 2:00 AM PLANT PROPAGATOR 30 CORE BUILDUP, INCLUDING ANY PINS WHEN REQUIRED Routine 03/26/2020 2:00 AM PLANT PROPAGATOR 30 CROWN PORC POST Routine 03/26/2020 2: 00 AM PLANT PROPAGATOR CANCELLED APPOINTMENT Routine 03/19/2020 2:00 AM PLANT PROPAGATOR ADDITIONAL X-RAY Routine 03/18/2020 2:00 AM PLANT PROPAGATOR SINGLE X-RAY Routine 03/18/2020 2:00 AM PLANT PROPAGATOR INTRAORAL PHOTO Routine 03/18/2020 2:00 AM PLANT PROPAGATOR PERIODIC ORAL EVALUATION - ESTABLISHED PATIENT Routine [...] - ESTABLISHED PATIENT Routine 04/29/2019 2:00 AM PLANT PROPAGATOR ORAL HYGIENE INSTRUCTIONS Routine 2019 2:00 AM PLANT PROPAGATOR 15 MB ARESTIN 2 SITE/TTH Routine 020 2:00 AM PLANT PROPAGATOR TOPICAL APPLICATION OF FLUORIDE VARNISH Routine 04/29/2019 2:00 AM PLANT PROPAGATOR PROPHYLAXIS - ADULT Routine 04/29/2019 2 :00 AM PLANT PROPAGATOR ORAL HYGIENE INSTRUCTIONS Routine 2018 2:00 AM [...] - ESTABLISHED PATIENT Routine 04/02/2018 2:00 AM PLANT PROPAGATOR ORAL HYGIENE INSTRUCTIONS Routine 2018 2:00 AM PLANT PROPAGATOR 1 FM IRR W/GROSS SCALE Routine 9 2:00 AM PLANT PROPAGATOR TOPICAL APPLICATION OF FLUORIDE VARNISH Routine 04/02/2018 2:00 AM PLANT PROPAGATOR PROPHYLAXIS - ADULT Routine 04/02/2018 2 :00 AM PLANT PROPAGATOR BITEWINGS - FOUR RADIOGRAPHIC IMAGES Routine 04/02/2018 2:00 AM PLANT PROPAGATOR ADDITIONAL X-RAY Routine 04/02/2018 2:00 AM PLANT PROPAGATOR ADDITIONAL X-RAY Routine 04/02/2018 2:00 AM PLANT PROPAGATOR ADDITIONAL X-RAY Routine 04/02/2018 2:00 AM PLANT PROPAGATOR ADDITIONAL X-RAY Routine 04/02/2018 2:00 AM PLANT PROPAGATOR ADDITIONAL X-RAY Routine 04/02/2018 2:00 AM PLANT PROPAGATOR SINGLE X-RAY Routine 04/02/2018 2:00 AM PLANT PROPAGATOR 19 O AMALGAM 1 SURFACE Routine 8 [...]
--- OUTSIDE RECORDS SUMMARY | 2025-02-05 20:58 | XMS_ITS | Clinical Summary ---
Author Organization [facility] Health Address [address] [place] [address] Care Team Providers Care Campground Caretaker Name Role Phone Unavailable Primary Care Provider [...] Comments Blood Pressure 147/85 05/11/2021 11:45 AM MEDIA MARKETING COORDINATOR Pulse 67 05/11/2021 11:45 AM MEDIA MARKETING COORDINATOR Temperature - - Respiratory Rate - - [...] - ADULT Routine 05/11/2021 1 2:30 PM MEDIA MARKETING COORDINATOR PERIODIC ORAL EVALUATION - ESTABLISHED PATIENT Routine 05/11/2021 11:00 AM MEDIA MARKETING COORDINATOR PANORAMIC RADIOGRAPHIC IMAGE Routine 09/25/2017 2:00 AM CDT INTRAORAL - COMPREHENSIVE SERIES OF RADIOGRAPHIC IMAGES Routine 09/25/2017 2:00 AM CDT from Last 3 Months or Most Recently Relevant to Health Maintenance Insurance [employer]ENTAL PPO
== END 2025-02-05 10:42 | disposition home or self-care (01) ==
LOC: HO.HMGCLDS 10:41
PROVIDERS: PCP Nurse Practitioner Family; Visit Provider Nurse Practitioner Family
DX: I10 Essential (primary) hypertension (principal); E55.9 Vitamin D deficiency, unspecified; E03.9 Hypothyroidism, unspecified; E78.5 Hyperlipidemia, unspecified
CPT/HCPCS: 36415; 80053; 80061; 81003; 82306; 84443; 85025

== ENCOUNTER 2025-02-10 10:20 | Outpatient (AMB) | payer MEDICARE, SELFPAY ==
[2025-02-10 10:26] VITALS: BP 140/100; PULSE 65; RESP 16; O2SAT 98; BMI 30.4
--- NOTE | 2025-02-10 10:26 | MHC.PC.OV ---
Vital Signs 02/10/25 10:26 Height 5 ft 2.5 in Weight 169 lb BMI 30.4 BP 140/100 H Blood Pressure Location Lt brachial Position Sitting Respiration 16 Pulse 65 Pulse Source Pulse Oximeter Pulse Oximetry (%) 98 Oxygen Delivery Method Room Air Intake Visit Reasons: 6 months f/up Intensive Care Ambulance Paramedic Required: No Accompanied by: Self / Same As Patient Allergies No Known Allergies Allergy (Verified 02/10/25 10:31) Tobacco use date assessed: 08/06/24 Fall risk assessment: No Falls in past year Last assessed Fall Risk: 02/10/25 Dental Screening Dental Screen Date: 02/10/25 Did you have a dental visit in the last 12 months?: Yes Did you have a dental problem in the last 6 months where you did not have access to dental care?: No Was dental information given to patient?: Patient has dentist HPI 6 months f/up HPI Details Chief Complaint The patient presents for follow-up for hypertension. History of Present Illness The patient is a 79 year old individual presenting for follow-up for hypertension. The patient was noted to have an elevated blood pressure reading in the office during the visit. The patient's laboratory results are stable. Social History Health Maintenance - The patient will monitor blood pressure at home with a manual cuff, which the patient knows how to use. -labs are stable Review of Systems - Neurological: Denies headaches and blurred vision. - Cardiovascular: Denies chest pain. - Respiratory: Denies shortness of breath. Physical Exam General: Cooperative, healthy appearing, comfortable, no acute distress and well developed Orientation: Patient oriented x3 Limitations: No limitations Head: Normal to inspection Ears: Hearing grossly normal bilaterally Nose: Normal external nose present Face and sinus: Normal facial exam Eyes: Appearance normal, both eyes and all related structures Neck: Normal visual inspection and Yes full ROM Respiratory: Normal respiratory effort and able to speak in complete sentences. Clear to auscultation bilaterally Cardiovascular: Regular rate and rhythm. Normal S1 and S2 GI: Normal to inspection. Soft to palpation and nontender Skin: No rashes or lesions noted Neuro: Patient oriented x3 Extremities: Normal to inspection, no edema noted Results - Labs: Results are stable. Plan 1. Hypertension The patient was noted to be hypertensive in the office. The patient will monitor blood pressure at home using a manual cuff at least once a day, a few times per week, and will send the values next week. Medication will be adjusted accordingly based on the home blood pressure readings. A follow-up visit is scheduled in 4 months. Discussion Notes I discussed with the patient that the blood pressure was noted to be elevated in the office today. The patient was instructed to monitor blood pressure at home with a manual cuff. The patient will check at least once a day, a few times a week, and send the values to me next week. Based on those readings, we will adjust the patient's medication. I plan to see the patient for a follow-up in 4 months, but the patient will send me blood pressure readings sooner. Patient Instructions - Please check your blood pressure at home with your manual cuff as we discussed. - Try to check it at least once a day, a few times a week. - Please send me your blood pressure readings next week so we can see if we need to change your medicine. - Your next follow-up visit is scheduled in 4 months. - Please contact the office if you experience any headaches, blurred vision, chest pain, or shortness of breath. [facility] Medical History Adrenal nodule Osteoarthritis Surgical History History of cataract surgery H/O eye surgery S/P tonsillectomy History of partial hysterectomy S/P knee surgery Family History Father HTN (hypertension) Prostate cancer Leukemia Mother Cancer Social History Household Members: Spouse Housing: Apartment Alcohol intake: never Patient Tobacco Use Status: Never used Tobacco e-Cigarette/Vaping Use: Never Used Second Hand Smoke Exposure: No service: No Current occupational status: retired Sexual orientation: Straight/Heterosexual Gender identity: Female Cognitive needs: No Hearing needs: No Vision needs: No Questionnaire PHQ-9 Over the last 2 weeks, how often have you been bothered by any of the following problems? 1. Little interest or pleasure in doing things: not at all 2. Feeling down, depressed, or hopeless: not at all 3. Trouble falling or staying asleep, or sleeping too much: not at all 4. Feeling tired or having little energy: not at all 5. Poor appetite or overeating: not at all 6. Feeling bad about yourself - or that you are a failure or have let yourself or your family down: not at all 7. Trouble concentrating on things, such as reading the newspaper or watching television: not at all 8. Moving or speaking so slowly that other people could have noticed. Or the opposite - being so fidgety or restless that you have been moving around a lot more than usual: not at all 9. Thoughts that you would be better off or of hurting yourself in some way: not at all Total score: 0 Depression Screening Interpretation: Negative Depression Screening Done: Yes 83838 - PHQ-9 Billing: Yes Source: Developed by Drs. Zechariah Lazo, Bubba Meraz and colleagues, with an educational jennifer from [employer]. Thrive Questionnaire Date Thrive assessed: 03/26/24 I am a: Patient What is your living situation today?: I have a steady place to live Within the past 12 months, did the food you bought not last and you didn't have the money to get more?: Never true Within the past 12 months, did you worry whether your food would run out before you got money to buy more?: Never true Do you have trouble paying for medicines?: No Do you have trouble getting transportation to medical appointments?: No Do you have trouble paying your heating and electricity bill?: No Do you have trouble taking care of your child, family member or friend?: No Do you have trouble with day-to-day activities such as bathing, preparing meals, shopping, managing finances, etc.?: No Are you currently unemployed and looking for a job?: No Are you interested in more education?: No Please select the resources that you would like help with: None Currently or been in a relationship where the following occur: No concerns reported THRIVE Score: 0 STEPHANY-7 AMB Questionnaire STEPHANY-7 Date STEPHANY - 7 assessed: 04/02/24 Source: Developed by Drs. Zechariah Lazo, Bubba Meraz and colleagues, with an educational jennifer from [employer]. Physical exam (Primary Care) Vital Signs: Last Vital Signs Pulse 65 02/10/25 10:26 Resp 16 02/10/25 10:26 BP 140/100 H 02/10/25 10:26 Pulse Ox 98 02/10/25 10:26 Oxygen Delivery Method Room Air 02/10/25 10:26 BMI result Body Mass Index 30.4 Tobacco/Smoking Status: Tobacco use Status Tobacco use date assessed 08/06/24 02/10/25 10:29 Patient Tobacco Use Status Never used Tobacco 02/10/25 10:29 e-Cigarette/Vaping Use Never Used 02/10/25 10:29 PHQ-9: PHQ-9 Score PHQ-9: Total score 0 02/10/25 10:29 Depression Screening Interpretation: Negative Thrive Assessment: Date of Thrive Assessment Date Thrive assessed 03/26/24 02/10/25 10:29 Currently or been in a relationship where the following occur: No concerns reported Coding Level of Care Code Est Pt Level 3 (50555) Diagnoses HTN (hypertension) I10 Additional Codes PHQ-9 - 00556 - PHQ-9 Billing: Yes ([id number]) Assessment & Plan Assessment & Plan (1) HTN (hypertension): Code(s): I10 - Essential (primary) hypertension Category: Medical Plan .
--- OUTSIDE RECORDS SUMMARY | 2025-02-10 12:43 | XMS_ITS | Clinical Summary ---
Author Organization [facility] Health Address [address] [place] [address] Care Team Providers Care Nitrogen Operator Name Role Phone Unavailable Primary Care [...] Comments Blood Pressure 147/85 05/11/2021 11:45 AM PATIENT RESOURCE COORDINATOR Pulse 67 05/11/2021 11:45 AM PATIENT RESOURCE COORDINATOR Temperature - - Respiratory Rate - [...] - ADULT Routine 05/11/2021 1 2:30 PM PATIENT RESOURCE COORDINATOR PERIODIC ORAL EVALUATION - ESTABLISHED PATIENT Routine 05/11/2021 11:00 AM PATIENT RESOURCE COORDINATOR PANORAMIC RADIOGRAPHIC IMAGE Routine 09/25/2017 2:00 AM CDT INTRAORAL - COMPREHENSIVE SERIES OF RADIOGRAPHIC IMAGES Routine 09/25/2017 2:00 AM CDT from Last 3 Months or Most Recently Relevant to Health Maintenance Insurance [employer]
--- OUTSIDE RECORDS SUMMARY | 2025-02-10 12:44 | XMS_ITS | Encounter Summary ---
Author Organization [facility] Address [address] [place] [address] Care Team Providers Care Hook And Eye Attacher Name Role Phone Unavailable Primary Care Provider Unavailabl e Prior Encounters Date Type Department Care Team Description 05/11/2021 12:30 PM POLICY VALUE CALCULATOR Office Visit [facility] [id number], [facility] [address] [place] [address] Hailey Herrera, [facility] 05/11/2021 Orders Only [facility] [id number], [facility] [address] [place] [address] Domenic Bauer 05/11/2021 Travel 05/11/2021 11:00 AM POLICY VALUE CALCULATOR Office Visit [facility] [id number], [facility] [address] [place] [address] Domenic Bauer 04/08/2019 Converted CPS Chart Documents [facility] [id number], [facility] [address] [place] [address] <No scans attached> 04/08/2019 Converted 13x Documents [facility] [address] , [facility] [address] [place] [address] <No scans attached> 04/08/2019 Converted 13x Documents [facility] [id number], [facility] [address] [place] [address] <No scans attached> Last Filed Vital Signs Vital Sign Reading Time Taken Comments Blood Pressure 147/85 05/11/2021 11:45 AM POLICY VALUE CALCULATOR Pulse 67 05/11/2021 11:45 AM POLICY VALUE CALCULATOR Temperature - - Respiratory Rate - - Oxygen Saturation - - Inhaled Oxygen Concentration - - Weight - - Height - - Body Mass Index - - Plan of Treatment Not on file Procedures Procedure Name Priority Date/Time Associated Diagnosis Comments ORAL HYGIENE INSTRUCTIONS Routine 2021 12:30 PM POLICY VALUE CALCULATOR SHANE DECON Routine 05/11/2021 12:30 PM POLICY VALUE CALCULATOR TOPICAL APPLICATION OF FLUORIDE VARNISH Routine 05/11/2021 12:30 PM POLICY VALUE CALCULATOR PROPHYLAXIS - ADULT Routine 05/11/2021 1 2:30 PM POLICY VALUE CALCULATOR LR ANTIBACT IRR/QUAD Routine 05/11/2021 12:30 PM POLICY VALUE CALCULATOR LL ANTIBACT IRR/QUAD Routine 05/11/2021 12:30 PM POLICY VALUE CALCULATOR UL ANTIBACT IRR/QUAD Routine 05/11/2021 12:30 PM POLICY VALUE CALCULATOR UR ANTIBACT IRR/QUAD Routine 05/11/2021 12:30 PM POLICY VALUE CALCULATOR INTRAORAL PHOTO Routine 05/11/2021 11:00 AM POLICY VALUE CALCULATOR INTRAORAL PHOTO Routine 05/11/2021 11:00 AM POLICY VALUE CALCULATOR INTRAORAL PHOTO Routine 05/11/2021 11:00 AM POLICY VALUE CALCULATOR INTRAORAL PHOTO Routine 05/11/2021 11:00 AM POLICY VALUE CALCULATOR BITEWINGS - FOUR RADIOGRAPHIC IMAGES Routine 05/11/2021 11:00 AM POLICY VALUE CALCULATOR ADDITIONAL X-RAY Routine 05/11/2021 11:0 0 AM POLICY VALUE CALCULATOR ADDITIONAL X-RAY Routine 05/11/2021 11:0 0 AM POLICY VALUE CALCULATOR ADDITIONAL X-RAY Routine 05/11/2021 11:0 0 AM POLICY VALUE CALCULATOR ADDITIONAL X-RAY Routine 05/11/2021 11:0 0 AM POLICY VALUE CALCULATOR ADDITIONAL X-RAY Routine 05/11/2021 11:0 0 AM POLICY VALUE CALCULATOR SINGLE X-RAY Routine 05/11/2021 11:00 AM POLICY VALUE CALCULATOR PERIODIC ORAL EVALUATION - ESTABLISHED PATIENT Routine 05/11/2021 11:00 AM POLICY VALUE CALCULATOR PERIODIC ORAL EVALUATION - ESTABLISHED PATIENT Routine [...] - ESTABLISHED PATIENT Routine 05/11/2020 2:00 AM POLICY VALUE CALCULATOR ORAL HYGIENE INSTRUCTIONS Routine 2020 2:00 AM POLICY VALUE CALCULATOR TOPICAL APPLICATION OF FLUORIDE VARNISH Routine 05/11/2020 2:00 AM POLICY VALUE CALCULATOR PROPHYLAXIS - ADULT Routine 05/11/2020 2 :00 AM POLICY VALUE CALCULATOR 30 CEMENT CROWN Routine 04/13/2020 2:00 AM POLICY VALUE CALCULATOR SINGLE X-RAY Routine 04/13/2020 2:00 AM POLICY VALUE CALCULATOR 30 TREATMENT OF ROOT CANAL OBSTRUCTION; NON-SURGICAL ACCESS Routine 03/26/2020 2:00 AM POLICY VALUE CALCULATOR LIMITED ORAL EVALUATION - PROBLEM FOCUSED Routine 03/26/2020 2:00 AM POLICY VALUE CALCULATOR 30 ENDODONTIC THERAPY, MOLAR TOOTH (EXCLUDING FINAL QUAKER) Routine 03/26/2020 2:00 AM POLICY VALUE CALCULATOR 30 PULP VITALITY TESTS Routine 2:00 AM POLICY VALUE CALCULATOR 30 CORE BUILDUP, INCLUDING ANY PINS WHEN REQUIRED Routine 03/26/2020 2:00 AM POLICY VALUE CALCULATOR 30 CROWN PORC POST Routine 03/26/2020 2: 00 AM POLICY VALUE CALCULATOR CANCELLED APPOINTMENT Routine 03/19/2020 2:00 AM POLICY VALUE CALCULATOR ADDITIONAL X-RAY Routine 03/18/2020 2:00 AM POLICY VALUE CALCULATOR SINGLE X-RAY Routine 03/18/2020 2:00 AM POLICY VALUE CALCULATOR INTRAORAL PHOTO Routine 03/18/2020 2:00 AM POLICY VALUE CALCULATOR PERIODIC ORAL EVALUATION - ESTABLISHED PATIENT Routine [...] - ESTABLISHED PATIENT Routine 04/29/2019 2:00 AM POLICY VALUE CALCULATOR ORAL HYGIENE INSTRUCTIONS Routine 2019 2:00 AM POLICY VALUE CALCULATOR 15 MB ARESTIN 2 SITE/TTH Routine 020 2:00 AM POLICY VALUE CALCULATOR TOPICAL APPLICATION OF FLUORIDE VARNISH Routine 04/29/2019 2:00 AM POLICY VALUE CALCULATOR PROPHYLAXIS - ADULT Routine 04/29/2019 2 :00 AM POLICY VALUE CALCULATOR ORAL HYGIENE INSTRUCTIONS Routine 2018 2:00 AM [...] - ESTABLISHED PATIENT Routine 04/02/2018 2:00 AM POLICY VALUE CALCULATOR ORAL HYGIENE INSTRUCTIONS Routine 2018 2:00 AM POLICY VALUE CALCULATOR 1 FM IRR W/GROSS SCALE Routine 9 2:00 AM POLICY VALUE CALCULATOR TOPICAL APPLICATION OF FLUORIDE VARNISH Routine 04/02/2018 2:00 AM POLICY VALUE CALCULATOR PROPHYLAXIS - ADULT Routine 04/02/2018 2 :00 AM POLICY VALUE CALCULATOR BITEWINGS - FOUR RADIOGRAPHIC IMAGES Routine 04/02/2018 2:00 AM POLICY VALUE CALCULATOR ADDITIONAL X-RAY Routine 04/02/2018 2:00 AM POLICY VALUE CALCULATOR ADDITIONAL X-RAY Routine 04/02/2018 2:0 0 AM POLICY VALUE CALCULATOR ADDITIONAL X-RAY Routine 04/02/2018 2:00 AM POLICY VALUE CALCULATOR ADDITIONAL X-RAY Routine 04/02/2018 2:00 AM POLICY VALUE CALCULATOR ADDITIONAL X-RAY Routine 04/02/2018 2:00 AM POLICY VALUE CALCULATOR SINGLE X-RAY Routine 04/02/2018 2:00 AM POLICY VALUE CALCULATOR 19 O AMALGAM 1 SURFACE Routine 8 [...]
== END 2025-02-10 11:45 | disposition home or self-care (01) ==
LOC: HO.HMCC 10:21
PROVIDERS: PCP Nurse Practitioner Family; Visit Provider Nurse Practitioner Family
DX: I10 Essential (primary) hypertension (principal)

== ENCOUNTER → 2025-02-10 10:20 | Outpatient (BNVA) | payer MEDICARE, SELFPAY | PROVIDERS: PCP Nurse Practitioner Family; Visit Provider Nurse Practitioner Family | DX: I10 Essential (primary) hypertension (principal) | CPT/HCPCS: 96127; 99212 ==